=== PATIENT | male | born 1950 | race Caucasian/White ===

== ENCOUNTER → 2017-05-18 | Outpatient (CLI) | payer MEDICARE, MEDICAID ==
[~2017-05-18] MED LIST: AC325T PO; ASP81TEC PO; ASPI-586 PO; BENZ100C18 PO; CIPR-225 PO; CLCX200C; FNST5T PO; GFN600TCR PO; HYDR-753 PO; HYDR25TA4 PO; LISI40TA PO; MELO15TA39 PO; MELO7.5T PO; OXYC-197 PO; PHEN37.53 PO; TADALAFIL 20 MG PO; TRAM50TA2; TRIA1CAP PO; TRIA1CAP4; TRIA1TAB42 PO
--- NOTE | 2017-05-18 13:54 | Diagnostic Imaging Report ---
PA and lateral views of the chest. INDICATION: Dyspnea. FINDINGS: The lungs are clear. The heart size is normal. No effusion or pneumothorax. The mediastinum and augie appear unremarkable. IMPRESSION: Unremarkable exam. Dictated by: Dictated on workstation # [id number]
== END ==
LOC: RAD 11:09
PROVIDERS: ATTEND Internal Medicine
DX: R06.00 Dyspnea, unspecified (principal)
CPT/HCPCS: 71020

== ENCOUNTER → 2017-05-20 | Outpatient (CLI) | payer MEDICARE, MEDICAID ==
[~2017-05-20] MED LIST changes: +CATHETER FLUSH 10 ML SYR IV PRN; +IOHEXOL 350 MG/ML 150 ML (OMNIPAQUE 350) VIAL IV ONE; +NS 100 ML (IVPB) BAG IV ONE
--- NOTE | 2017-05-20 11:23 | Diagnostic Imaging Report ---
PROCEDURE: CT angiography of the chest with contrast. TECHNIQUE: Multiple contiguous axial images were obtained through the chest after uneventful bolus administration of intravenous contrast. Reconstructed CTA MIP acquisitions were also performed. INDICATION: Dyspnea. Positive d-dimer. 125 mL of Omnipaque 350 is administered intravenously. FINDINGS: The pulmonary arteries are well opacified with no filling defects to suggest pulmonary embolism. The thoracic aorta is normal in caliber. No dissection. The heart size is normal. No pericardial or pleural effusion is seen. The lungs demonstrate no significant consolidation, mass or suspicious nodule. No lymphadenopathy in the mediastinum, augie or axilla is seen. Coronary artery calcifications are noted. Sections in the upper abdomen appear grossly unremarkable. Osseous structures demonstrate degenerative changes. IMPRESSION: No PE or aortic dissection. No acute process. Dictated by: Dictated on workstation # [id number]
== END ==
LOC: RAD 10:34
PROVIDERS: ATTEND Internal Medicine
DX: R79.1 Abnormal coagulation profile (principal); R06.00 Dyspnea, unspecified
CPT/HCPCS: 71275

== ENCOUNTER → 2017-05-22 | Outpatient (CLI) | payer MEDICARE, MEDICAID ==
[~2017-05-22] MED LIST changes: -CATHETER FLUSH 10 ML SYR IV PRN; -IOHEXOL 350 MG/ML 150 ML (OMNIPAQUE 350) VIAL IV ONE; -NS 100 ML (IVPB) BAG IV ONE
--- NOTE | 2017-05-22 12:27 | Diagnostic Imaging Report ---
PROCEDURE: US Gallbladder. TECHNIQUE: Multiple real-time grayscale images were obtained over the right upper quadrant in various projections. INDICATION: Abdominal pain. FINDINGS: Hepatic density is elevated suggestive of at least mild steatosis. The gallbladder appears normal and there is no dilatation of intra or extrahepatic bile ducts. No ascites or perihepatic fluid collection. The unobstructed right kidney is normal in size, cortical thickness, and echotexture. Pancreas is obscured by gas. IMPRESSION: Echodense fatty liver, otherwise normal right upper quadrant ultrasound. We note obscuration of the pancreas and negative right kidney. Dictated by: Dictated on workstation # [id number]
== END ==
LOC: RAD 07:29
PROVIDERS: ATTEND Internal Medicine
DX: K76.0 Fatty (change of) liver, not elsewhere classified (principal); R10.9 Unspecified abdominal pain
CPT/HCPCS: 76705

== ENCOUNTER → 2017-08-12 | Outpatient (CLI) | payer MEDICARE, MEDICAID ==
[~2017-08-12] MED LIST changes: +RT-ALBUTEROL SULF 2.5 MG/3 ML PRE-MIX VIAL INH ONE
== END ==
LOC: RT 12:36
PROVIDERS: ATTEND Internal Medicine
DX: R06.00 Dyspnea, unspecified (principal)
CPT/HCPCS: 94060; 94726; 94729

== ENCOUNTER → 2017-12-28 | Outpatient (CLI) | payer MEDICARE, MEDICAID ==
[~2017-12-28] MED LIST changes: -RT-ALBUTEROL SULF 2.5 MG/3 ML PRE-MIX VIAL INH ONE
--- NOTE | 2017-12-28 13:44 | Diagnostic Imaging Report ---
INDICATION: Arthritis of the left knee. TIME OF EXAM: 11:15 a.m. Multiple views of left knee were obtained. There is significant medial and patellofemoral compartmental degenerative change with joint space narrowing and marginal spurring. Lateral compartment is intact. There does appear to be chondrocalcinosis. No significant effusion is seen. No fractures identified. Extensive soft tissue calcifications in the left lower extremity are noted, perhaps on the basis of dermatomyositis. IMPRESSION: 1. Bicompartmental left knee osteoarthritis without acute bony abnormality. 2. Extensive soft tissue calcifications at the level of the tibia and fibula, perhaps on basis of scleroderma or dermatomyositis. Clinical correlation is recommended. Dictated by: Dictated on workstation # [id number]
== END ==
LOC: RAD 10:39
PROVIDERS: ATTEND Internal Medicine
DX: M17.12 Unilateral primary osteoarthritis, left knee (principal); M79.89 Other specified soft tissue disorders
CPT/HCPCS: 73562

== ENCOUNTER → 2018-07-13 | Outpatient (CLI) | payer MEDICAID, MEDICARE ==
[~2018-07-13] MED LIST changes: +HYDR-4196 PO; -HYDR-753 PO; -OXYC-197 PO; +OXYC1TAB87 PO
== END ==
LOC: RAD 08:34
PROVIDERS: ATTEND Internal Medicine
DX: S46.001A Unspecified injury of muscle(s) and tendon(s) of the rotator cuff of right shoulder, initial encounter (principal); Z53.8 Procedure and treatment not carried out for other reasons

== ENCOUNTER 2018-09-18 07:53 | Emergency (ER) | payer MEDICARE ==
[~2018-09-18] VITALS: Ht 170.2 cm; Wt 147.4 kg
--- OUTSIDE RECORDS SUMMARY | 2018-09-18 07:58 | XMS REPORT | Clinical Summary ---
Author Author [facility] Organization [facility] Address Unknown Phone Unavailable Care Team Providers Care Quality Assurance Supervisor Final Name Role Phone Sebas Cartwright MD Unavailable Self, Referral PCP Unavailable Source Comments Some departments are not documenting in the electronic medical record. If you do not see the information that you expected, contact Release of Information in the Health Information Management department at [phone] for further assistance in locating additional records.[facility] Allergies Comments Active Allergy Reactions Severity Noted Date Ampicillin RASH Medium 05/13/2012 Medications End Date Status Medication Sig Dispensed Refills Start Date Active oxyCODONE-acetaminophen Take 1-2 Tabs 40 Tab 0 (PERCOCET; ENDOCET; by mouth 2 ROXICET) 5-325 mg tablet every 6 hours as needed for Pain Max 12 tabs/day Active phenazopyridine Take 1 Tab by 10 Tab 0 (PYRIDIUM) 100 mg tablet mouth three 2 times daily. Active hyoscyamine (LEVSIN) Take 1 Tab by 30 Tab 0 0.125 mg tablet mouth every 4 2 hours as needed for Cramps. Active senna/docusate (SENNA-S) Take 1 Tab by 60 Tab 0 8.6/50 mg tablet mouth daily. 2 Active Problems Not on file Social History Date Tobacco Use Types Packs/Day Years Used Never Assessed Sex Assigned at Date Recorded Not on file Industry Job Start Date Occupation Not on file Not on file Not on file Travel End Travel History Travel Start No recent travel history available. Last Filed Vital Signs Time Taken Vital Sign Reading 05/13/2012 10:00 AM CDT Blood Pressure 125/84 05/13/2012 10:00 AM CDT Pulse 82 05/13/2012 10:00 AM CDT Temperature 36.6 C (97.8 F) - Respiratory Rate - 05/13/2012 10:00 AM CDT Oxygen Saturation 100% - Inhaled Oxygen - Concentration 05/12/2012 10:55 PM CDT Weight 160.1 kg (353 lb) 05/13/2012 6:37 AM CDT Height 175.3 cm (5' 9") 05/12/2012 10:55 PM CDT Body Mass Index 52.13 Plan of Treatment Health Maintenance Due Date Last Done Comments HEPATITIS C SCREENING 1952 PHYSICAL (COMPREHENSIVE) 11/11/1959 EXAM HIV SCREENING 11/11/1967 DTAP/TDAP VACCINES (1 - 1970 Tdap) COLORECTAL CANCER 2002 SCREENING SHINGLES RECOMBINANT 2002 VACCINE (1 of 2) PNEUMONIA (PCV13/PPSV23) 2017 VACCINES (1 of 2 - PCV13) INFLUENZA VACCINE 03/10/2018 Results Not on filefrom Last 3 Months Advance Directives For more information, please contact: [facility] [address] [place] [address] Date Inactivated Comments Code Status Date Activated 05/13/2012 3:23 PM Full Code 05/12/2012 11:34 PM Provider has discussed Code Status No, more discussion w/Patient or Family? needed
--- OUTSIDE RECORDS SUMMARY | 2018-09-18 07:59 | XMS REPORT | Continuity of Care Document ---
Author Author [facility] Organization [facility] Address Unknown Phone Unavailable Allergies Active Description Code Type Severity Reaction Onset Reported/Identified Relationship to Patient Clinical Status Yes ampicillin [id number] Drug Allergy Moderate HIVES 05/05/2012 Medications There is no data. Problems Date Dx Coded Attending Type Code Diagnosis Diagnosed By 06/11/2015 HELIO BARTLETT MD, Ot K11.7 DISTURBANCES OF SALIVARY SECRETION 06/11/2015 HELIO BARTLETT MD, Ot N39.0 URINARY TRACT INFECTION, SITE NOT SPECIF 06/11/2015 HELIO BARTLETT MD Ot R53.1 WEAKNESS 06/13/2015 HELIO BARTLETT MD, Ot E66.9 OBESITY, UNSPECIFIED 06/13/2015 HELIO BATRLETT MD Ot R20.0 ANESTHESIA OF SKIN 06/13/2015 HELIO BARTLETT MD Ot R20.2 PARESTHESIA OF SKIN 06/13/2015 HELIO BARTLETT MD Ot Z53.29 09/19/2015 ALEX PEREZ MD Ot M65.861 OTHER SYNOVITIS AND TENOSYNOVITIS, RIGHT 09/19/2015 ALEX PEREZ MD, Ot M94.261 CHONDROMALACIA, RIGHT KNEE 09/19/2015 ALEX PEREZ MD, Ot Z79.899 OTHER [facility] (CURRENT) DRUG THERAPY 09/19/2015 ALEX PEREZ MD, Ot Z87.891 PERSONAL HISTORY OF NICOTINE DEPENDENCE 05/25/2017 CELE TONEY DO, Ot K76.0 FATTY (CHANGE OF) LIVER, NOT ELSEWHERE C 05/25/2017 CELE TONEY DO, Ot R10.9 UNSPECIFIED ABDOMINAL PAIN 05/26/2017 CELE TONEY DO, Ot R06.00 DYSPNEA, UNSPECIFIED 05/26/2017 CELE TONEY DO, Ot R79.1 ABNORMAL COAGULATION PROFILE 06/09/2017 CELE TONEY DO J Ot R06.00 DYSPNEA, UNSPECIFIED 06/11/2017 TONEY DO, CELE Quintero Ot R06.00 DYSPNEA, UNSPECIFIED 06/11/2017 CELE TONEY DO Ot R79.1 ABNORMAL COAGULATION PROFILE 06/12/2017 CELE TONEY DO Ot K76.0 FATTY (CHANGE OF) LIVER, NOT ELSEWHERE C 06/12/2017 CELE TONEY DO Ot R10.9 UNSPECIFIED ABDOMINAL PAIN 06/23/2017 TONEY DO, CELE Quintero Ot R06.00 DYSPNEA, UNSPECIFIED 06/23/2017 TONEY DO, CELE Quintero Ot R06.00 DYSPNEA, UNSPECIFIED 06/23/2017 TONEY DO, CELE Quintero Ot R79.1 ABNORMAL COAGULATION PROFILE 06/26/2017 CELE TONEY DO Ot K76.0 FATTY (CHANGE OF) LIVER, NOT ELSEWHERE C 06/26/2017 TONEY DOCELE Ot R10.9 UNSPECIFIED ABDOMINAL PAIN 08/13/2017 TONEY DO CELE Ingrid Ot R06.00 DYSPNEA, UNSPECIFIED 09/08/2017 TONEY DO, CELE Quintero Ot R06.00 DYSPNEA, UNSPECIFIED 09/25/2017 TONEY DO, CELE Quintero Ot R06.00 DYSPNEA, UNSPECIFIED 12/29/2017 CELE TONEY DO Ot M17.12 UNILATERAL PRIMARY OSTEOARTHRITIS, LEFT 12/29/2017 CELE TONEY DO Ot M79.89 OTHER SPECIFIED SOFT TISSUE DISORDERS 01/20/2018 CELE TONEY DO Ot M17.12 UNILATERAL PRIMARY OSTEOARTHRITIS, LEFT 01/20/2018 CELE TONEY DO Ot M79.89 OTHER SPECIFIED SOFT TISSUE DISORDERS 02/08/2018 CELE TONEY DO Ot M17.12 UNILATERAL PRIMARY OSTEOARTHRITIS, LEFT 02/08/2018 CELE TONEY DO Ot M79.89 OTHER SPECIFIED SOFT TISSUE DISORDERS 07/13/2018 JENNA TONEY PROFESSIONAL SERVICES SPECIALIST Ot 786.50 CHEST PAIN NOS 07/13/2018 JENNA TONEY PROFESSIONAL SERVICES SPECIALIST Ot 959.11 OTH INJURY OF CHEST WALL 07/13/2018 JENNA TONEY PROFESSIONAL SERVICES SPECIALIST Ot E000.8 OTHER EXTERNAL CAUSE STATUS 07/13/2018 JENNA TONEY PROFESSIONAL SERVICES SPECIALIST Ot E849.0 ACCIDENT IN HOME 07/13/2018 TONEYJENNA STAUFFER PROFESSIONAL SERVICES SPECIALIST Ot E888.9 FALL NOS 07/13/2018 CHRIS TUBBS, ALEX Arango Ot M94.261 CHONDROMALACIA, RIGHT KNEE 07/13/2018 CHRIS TUBBS, ALEX Arango Ot Z01.818 ENCOUNTER FOR OTHER PREPROCEDURAL EXAMIN 07/13/2018 CHRIS TUBBS, ALEX Arango Ot Z11.2 ENCOUNTER FOR SCREENING FOR OTHER BACTER 07/13/2018 CELE TONEY DO Ot R06.00 DYSPNEA, UNSPECIFIED 07/13/2018 CELE TONEY DO Ot R06.00 DYSPNEA, UNSPECIFIED 07/13/2018 CELE TONEY DO Ot R79.1 ABNORMAL COAGULATION PROFILE 07/13/2018 CELE TONEY DO Ot K76.0 FATTY (CHANGE OF) LIVER, NOT ELSEWHERE C 07/13/2018 CELE TONEY DO Ot R10.9 UNSPECIFIED ABDOMINAL PAIN 07/13/2018 CELE TONEY DO Ot R06.00 DYSPNEA, UNSPECIFIED 07/13/2018 CELE TONEY DO Ot M17.12 UNILATERAL PRIMARY OSTEOARTHRITIS, LEFT 07/13/2018 CELE TONEY DO Ot M79.89 OTHER SPECIFIED SOFT TISSUE DISORDERS Procedures There is no data. Results There is no data. Encounters ACCT No. Visit Date/Time Discharge Status Pt. Type Provider Facility Loc./Unit Complaint [id number] 07/13/2018 08:34:00 07/13/2018 23:59:59 CLS Outpatient CELE TONEY DO [facility] RAD ROTATOR CUFF INJURY [id number] 12/28/2017 10:39:00 12/28/2017 23:59:59 CLS Outpatient CELE TONEY DO [facility] RAD M17.12 [id number] 08/12/2017 12:36:00 08/12/2017 23:59:59 CLS Outpatient CELE TONEY DO [facility] RT R06.00 [id number] 05/22/2017 07:29:00 05/22/2017 23:59:59 CLS Outpatient CELE TONEY DO [facility] RAD ABD PAIN [id number] 05/20/2017 10:34:00 05/20/2017 23:59:59 CLS Outpatient TONEY CELE BURLESON Ingrid [facility] RAD +D-DIMER,DYSPNEA [id number] 05/18/2017 11:09:00 05/18/2017 23:59:59 CLS Outpatient FENG CELE BURLESON Ingrid [facility] RAD DYSPNEA [id number] 09/19/2015 08:01:00 09/19/2015 12:40:00 DIS Outpatient ALEX PEREZ MD [facility] SDC RIGHT KNEE CHONDROMALASIA [id number] 09/13/2015 11:37:00 09/13/2015 23:59:59 CLS Outpatient ALEX PEREZ MD [facility] PREOP RIGHT KNEE CHONDROMALASIA [id number] 06/13/2015 08:51:00 06/13/2015 12:16:00 DIS Emergency HELIO BARTLETT MD [facility] ER FACIAL/LEFT ARM NUMBNESS [id number] 06/11/2015 18:00:00 06/11/2015 22:25:00 DIS Emergency HELIO BARTLETT MD [facility] ER WEAKNESS,DRY MOUTH, SHAKING,CHILLING [id number] 07/11/2013 13:09:00 07/11/2013 23:59:59 CLS Outpatient JENNA TONEY [facility] RAD FELL, HIT L RIBS [id number] 01/04/2013 10:15:00 01/04/2013 23:59:59 CLS Outpatient [id number] 09/18/2018 07:54:00 ACT Emergency JAI TUBBS, PREM Quach [facility] ER L SIDE ABD PAIN, N/V
[2018-09-18] MEDS ORDERED: NS IV 1000 ML 1,000 ML IV SCH (08:15)
[2018-09-18] MEDS ORDERED: fentaNYL INJECTION 100 MCG/2 ML AMP IVP ONE ×2 (08:15→10:00)
[2018-09-18] MEDS ORDERED: ONDANSETRON 4 MG/2 ML (SDV) Z0FRAN IVP ONE (08:15)
--- NOTE | 2018-09-18 08:19 | ED Abdominal Pain ---
General Stated Complaint: L SIDE ABD PAIN, N/V Source of Information: Patient, Family Exam Limitations: No Limitations History of Present Illness Date Seen by Provider: Sep 18, 2018 Time Seen by Provider: 08:16 Initial Comments A 67-year-old white male presents with a complaint of lower abdominal pain that has been present since yesterday. The pain originally was primarily right- sided and now it is left-sided. Patient has had associated nausea and vomiting. He denies any hematemesis or black or tarry stools. Past medical history includes kidney stones. Patient denies associated flank pain, dysuria, or frequency. Patient is under the care of Dr. Gonzalez. Patient's pain is moderate in severity and sharp in nature and nonradiating. Allergies and Home Medications Allergies Coded Allergies: ampicillin (Unverified Allergy, Intermediate, HIVES, 05/05/12) Home Medications Aspirin 81 Mg Tablet.dr, 81 MG PO DAILY, (Reported) Finasteride 5 Mg Tab, 5 MG PO DAILY, (Reported) Lisinopril 40 Mg Tablet, 40 MG PO DAILY, (Reported) Meloxicam 15 Mg Tablet, 15 MG PO DAILY, (Reported) Oxycodone HCl/Acetaminophen 1 Each Tablet, 1 EACH PO PRN Prescribed by: SOLEDAD KRUGER on 09/19/15 1139 Phentermine HCl 37.5 Mg Tablet, 37.5 MG PO DAILY, (Reported) Patient Home Medication List Home Medication List Reviewed: Yes Review of Systems Review of Systems Constitutional: No chills, No fever EENTM: No Blurred Vision Respiratory: Denies Cough Cardiovascular: Denies Chest Pain Gastrointestinal: Abdominal Pain; Denies Constipated, Denies Diarrhea; Nausea, Vomiting Genitourinary: Denies Burning, Denies Frequency (last bowel movement was yesterday) Musculoskeletal: No back pain Skin: No rash Psychiatric/Neurological: No Symptoms Reported Endocrine: No Symptoms Reported Hematologic/Lymphatic: No Symptoms Reported Past Miqqjud-Oxtyca-Abgzeq Hx Past Med/Social Hx: Reviewed Nursing Past Med/Soc Hx Patient Social History Recent Foreign Travel: No Contact w/Someone Who Travel: No Immunizations Up To Date Date of Pneumonia Vaccine: May 19, 2015 Date of Influenza Vaccine: May 12, 2015 Past Medical History Renal Sleep Apnea Chronic Edema/Swelling, Hypertension Reproductive Disorders: No Benign Prostatic Hyperpl, Kidney Stones Arthritis Physical Exam Vital Signs Vital Signs - First Documented 09/18/18 08:08 Temp 96.7 Pulse 92 Resp 18 B/P (MAP) 145/82 (103) Pulse Ox 99 Capillary Refill : Height/Weight/BMI Height: 5'4.00" Weight: 300lbs. 6.0oz. 136.600308yk; 49.92 BMI Method:Estimated General Appearance: WD/WN, mild distress HEENT: normal ENT inspection Neck: normal inspection Respiratory: normal breath sounds, no respiratory distress Cardiovascular: normal peripheral pulses, regular rate, rhythm Gastrointestinal: normal bowel sounds, tenderness (in the lower abdomen bilaterally.) Extremities: normal range of motion, non-tender, normal inspection Back: normal inspection Neurologic/Psychiatric: no motor/sensory deficits, alert, normal mood/affect, oriented x 3 Skin: normal color, warm/dry Progress/Results/Core Measures Results/Orders Lab Results Laboratory Tests Test 09/18/18 08:15 09/18/18 08:40 Range/Units White Blood Count 10.5 4.3-11.0 10^3/uL Red Blood Count 4.06 L 4.35-5.85 10^6/uL Hemoglobin 12.5 L 13.3-17.7 G/DL Hematocrit 37 L 40-54 % Mean Corpuscular Volume 91 80-99 FL Mean Corpuscular Hemoglobin 31 25-34 PG Mean Corpuscular Hemoglobin Concent 34 32-36 G/DL Red Cell Distribution Width 14.2 10.0-14.5 % Platelet Count 254 130-400 10^3/uL Mean Platelet Volume 10.7 H 7.4-10.4 FL Neutrophils (%) (Auto) 86 H 42-75 % Lymphocytes (%) (Auto) 7 L 12-44 % Monocytes (%) (Auto) 6 0-12 % Eosinophils (%) (Auto) 1 0-10 % Basophils (%) (Auto) 0 0-10 % Neutrophils # (Auto) 9.1 H 1.8-7.8 X 10^3 Lymphocytes # (Auto) 0.7 L 1.0-4.0 X 10^3 Monocytes # (Auto) 0.6 0.0-1.0 X 10^3 Eosinophils # (Auto) 0.1 0.0-0.3 10^3/uL Basophils # (Auto) 0.0 0.0-0.1 10^3/uL Neutrophils % (Manual) 83 % Lymphocytes % (Manual) 8 % Monocytes % (Manual) 9 % Blood Morphology Comment NORMAL Sodium Level 139 135-145 MMOL/L Potassium Level 4.1 3.6-5.0 MMOL/L Chloride Level 105 98-107 MMOL/L Carbon Dioxide Level 22 21-32 MMOL/L Anion Gap 12 5-14 MMOL/L Blood Urea Nitrogen 25 H 7-18 MG/DL Creatinine 1.79 H 0.60-1.30 MG/DL Estimat Glomerular Filtration Rate 38 BUN/Creatinine Ratio 14 Glucose Level 123 H 70-105 MG/DL Calcium Level 9.8 8.5-10.1 MG/DL Corrected Calcium 9.8 8.5-10.1 MG/DL Total Bilirubin 0.5 0.1-1.0 MG/DL Aspartate Amino Transf (AST/SGOT) 22 5-34 U/L Alanine Aminotransferase (ALT/SGPT) 15 0-55 U/L Alkaline Phosphatase 102 40-136 U/L Total Protein 7.4 6.4-8.2 GM/DL Albumin 4.0 3.2-4.5 GM/DL Lipase 16 8-78 U/L Urine Color YELLOW Urine Clarity CLEAR Urine pH 6 5-9 Urine Specific Melba 1.020 1.016-1.022 Urine Protein 2+ H NEGATIVE Urine Glucose (UA) NEGATIVE NEGATIVE Urine Ketones NEGATIVE NEGATIVE Urine Nitrite NEGATIVE NEGATIVE Urine Bilirubin NEGATIVE NEGATIVE Urine Urobilinogen NORMAL NORMAL MG/DL Urine Leukocyte Esterase NEGATIVE NEGATIVE Urine RBC (Auto) 1+ H NEGATIVE Urine RBC 5-10 H /HPF Urine WBC NONE /HPF Urine Squamous Epithelial Cells 2-5 /HPF Urine Crystals NONE /LPF Urine Bacteria NEGATIVE /HPF Urine Casts NONE /LPF Urine Mucus NEGATIVE /LPF Urine Culture Indicated NO My Orders Orders - PREM VERGARA MD Cbc With Automated Diff (09/18/18 08:12) Comprehensive Metabolic Panel (09/18/18 08:12) Lipase (09/18/18 08:12) Ua Culture If Indicated (09/18/18 08:12) Ct Abdomen/Pelvis Wo (09/18/18 08:12) Fentanyl Injection (Sublimaze Injection (09/18/18 08:15) Ondansetron Injection (Zofran Injectio (09/18/18 08:15) Ns Iv 1000 Ml (Sodium Chloride 0.9%) (2/9/19 08:15) Manual Differential (09/18/18 08:15) Fentanyl Injection (Sublimaze Injection (09/18/18 10:00) Ketorolac Injection (Toradol Injection) (09/18/18 10:15) Medications Given in ED Current Medications Medications Dose Ordered Sig/Bar Route Start Time Stop Time Status Last Admin Dose Admin Fentanyl Citrate 50 mcg ONCE ONCE IVP 09/18/18 08:15 09/18/18 08:16 DC 09/18/18 08:24 50 MCG Fentanyl Citrate 50 mcg ONCE ONCE IVP 09/18/18 10:00 09/18/18 10:01 DC 09/18/18 10:03 50 MCG Ondansetron HCl 4 mg ONCE ONCE IVP 09/18/18 08:15 09/18/18 08:16 DC 09/18/18 08:24 4 MG Vital Signs/I&O 09/18/18 08:08 Temp 96.7 Pulse 92 Resp 18 B/P (MAP) 145/82 (103) Pulse Ox 99 Progress Progress Note : Time: 10:18 Progress Note There was a 6 mm mildly obstructing stone noted on the left at the UPJ. Diverticulosis was also present on the patient's CT. The patient requested transfer to his urologist at [facility] in [place]. Dr. Gonzalez was kind enough to accept the patient in transfer to [facility]. Patient received fentanyl and Toradol IV for his pain. Departure Impression Primary Impression: Kidney stone on left side Disposition: XFER SHT-TRM HOSP Condition: Improved Transfer Time Spoke to Accepting Phy: 10:[address] Gonzalez at [facility] Transfer Time: 10:20 Transfer Facility: [facility] Method of Transfer: Private Vehicle Departure-Patient Inst. Referrals: CELE GONZALEZ DO (PCP/Family) Primary Care Physician PREM VERGARA MD Sep 18, 2018 08:19
[2018-09-18 08:33] LABS: BASOPHILS % (AUTO) 0 % (0-10); EOSINOPHILS # (AUTO) 0.1 10^3/uL (0.0-0.3); EOSINOPHILS % (AUTO) 1 % (0-10); HEMATOCRIT 37 % (40-54); HEMOGLOBIN 12.5 G/DL (13.3-17.7); LYMPHOCYTES # (AUTO) 0.7 X 10^3 (1.0-4.0); LYMPHOCYTES % (AUTO) 7 % (12-44); MEAN CORPUSCULAR HEMOGLOBIN 31 PG (25-34); MEAN CORPUSCULAR HGB CONC 34 G/DL (32-36); MEAN CORPUSCULAR VOLUME 91 FL (80-99); MEAN PLATELET VOLUME 10.7 FL (7.4-10.4); MONOCYTES # (AUTO) 0.6 X 10^3 (0.0-1.0); MONOCYTES % (AUTO) 6 % (0-12); NEUTROPHILS # (AUTO) 9.1 X 10^3 (1.8-7.8); NEUTROPHILS % (AUTO) 86 % (42-75); PLATELET COUNT 254 10^3/uL (130-400); RED CELL DISTRIBUTION WIDTH 14.2 % (10.0-14.5); WHITE BLOOD COUNT 10.5 10^3/uL (4.3-11.0)
[2018-09-18 08:52] LABS: BILIRUBIN,URINE NEGATIVE (NEGATIVE); CLARITY,URINE CLEAR; COLOR,URINE YELLOW; GLUCOSE, URINE (UA) NEGATIVE (NEGATIVE); KETONES,URINE NEGATIVE (NEGATIVE); LEUKOCYTE ESTERASE ,URINE NEGATIVE (NEGATIVE); NITRITE,URINE NEGATIVE (NEGATIVE); PH,URINE 6 (5-9); PROTEIN,URINE 2+ (NEGATIVE); UROBILINOGEN,URINE NORMAL (NORMAL)
[2018-09-18 08:53] LABS: BILIRUBIN,TOTAL 0.5 MG/DL (0.1-1.0); CALCIUM 9.8 MG/DL (8.5-10.1); CREATININE SERUM 1.79 MG/DL (0.60-1.30); POTASSIUM 4.1 MMOL/L (3.6-5.0); TOTAL PROTEIN 7.4 GM/DL (6.4-8.2)
[2018-09-18 09:06] LABS: BACTERIA,URINE NEGATIVE /HPF
[2018-09-18 09:17] LABS: LYMPHOCYTES % (MANUAL) 8 %; MONOCYTES % (MANUAL) 9 %; NEUTROPHILS % (MANUAL) 83 %; RBC MORPH NORMAL
--- NOTE | 2018-09-18 09:26 | Diagnostic Imaging Report ---
PROCEDURE: CT abdomen and pelvis without contrast. TECHNIQUE: Multiple contiguous axial images were obtained through the abdomen and pelvis without the use of intravenous contrast. INDICATION: Left side abdominal pain with nausea and vomiting. Comparison is made with prior CT abdomen and pelvis from 05/07/2012. The lung bases are clear. No discrete liver mass is detected. The gallbladder is unremarkable. No biliary duct dilatation is identified. The pancreas and spleen are unremarkable. No adrenal mass is detected. Right kidney is unremarkable. There is a nonobstructing calculus within the lower pole of the left kidney measuring 6 mm in size. In addition, there is a calculus located at the UPJ on the left measuring 6 mm in size. This is producing mild hydronephrosis. Remainder of the left ureter is unremarkable. The right ureter is unremarkable. No bladder calculi are detected. Small and large bowel loops are normal caliber. There is diverticulosis of the sigmoid colon but no evidence of acute diverticulitis. IMPRESSION: 1. 6 mm elevated nonobstructing left renal calculus. There is also a 6 mm calculus at the UPJ on the left side producing mild hydronephrosis. 2. Uncomplicated sigmoid diverticulosis. Dictated by: Dictated on workstation # [id number]
[2018-09-18] MEDS ORDERED: KETOROLAC 30 MG/ML VIAL IVP ONE (10:15)
[2018-09-18 11:06] VITALS: BP 145/82
== END 2018-09-18 11:09 | disposition short-term general hospital (02) ==
LOC: EDUNIT# 07:53 → ER 07:54
DX: N13.2 Hydronephrosis with renal and ureteral calculous obstruction (principal); G47.30 Sleep apnea, unspecified; I10 Essential (primary) hypertension; Z87.448 Personal history of other diseases of urinary system; Z88.1 Allergy status to other antibiotic agents; Z79.82 Long term (current) use of aspirin
CPT/HCPCS: 36415; 74176; 80053; 81000; 83690; 85007; 85027

== ENCOUNTER 2019-04-23 12:33 | Emergency (ER) | payer MEDICARE ==
[~2019-04-23] VITALS: Ht 170.1 cm; Wt 157.0 kg
--- NOTE | 2019-04-23 12:56 | ED General ---
General Stated Complaint: NECK / R KNEE PAIN Source of Information: Patient History of Present Illness Date Seen by Provider: Apr 23, 2019 Time Seen by Provider: 12:32 Initial Comments PT ARRIVES VIA POV FROM HOME, NEEDS WHEELCHAIR ON ARRIVAL PT LIVES ALONE PT HAS CHRONIC BILATERAL KNEE PAIN AND HAS HAD RIGHT KNEE SCOPE SEVERAL YEARS AGO BY DR. PEREZ. STATES HE HIS NOT A CANDIDATE FOR KNEE REPLACEMENT DUE TO HIS MORBID OBESITY HAS HAD INCREASED PAIN IN RIGHT KNEE FOR THE LAST SEVERAL DAYS STATES HE NORMALLY IS ABLE TO WALK ON HIS OWN, USES A CANE. PT HAS ALSO HAD PAIN IN NECK AND UPPER BACK FOR THE LAST FEW DAYS--STATES IT HAS BEEN "TIGHT" AND POINTS TO BILATERAL TRAPEZIUS AREAS THE AREAS OF PAIN--STATES IT IS NOT HURTING NOW DENIES ANY INJURY OR CHANGE IN ACTIVITY OR CHANGE IN SLEEPING POSITION, ETC. NO PARESTHESIAS OR MOTOR DEFICITS NO FEVER OR RECENT ILLNESS HAS NOT SOUGHT CARE UNTIL TODAY TOOK NAPROXEN AND 1 HYDROCODONE AT 0800 THIS AM--STATES HE ONLY TAKES 1 HYDROCODONE A DAY PT ALSO STATES HE TAKES MOBIC DAILY PCP: DR. TONEY ORTHOPEDIC SURGEON: DR. PEREZ Allergies and Home Medications Allergies Coded Allergies: ampicillin (Unverified Allergy, Intermediate, HIVES, 05/05/12) Home Medications Albuterol Sulfate 1 Puff Puff, 2 PUFF IH Q6H, (Reported) 1 PUFF = 90 MCG Aspirin 81 Mg Tablet.dr, 81 MG PO DAILY, (Reported) Finasteride 5 Mg Tab, 5 MG PO DAILY, (Reported) Fluticasone Propionate 9.9 Ml [place].susp, 2 SPRAY NS DAILY, (Reported) 2 SPRAYS PER NOSTRIL DAILY X 2 DAYS THEN 1 SPRAY DAILY Hydrocodone/Acetaminophen 1 Each Tablet, 1 TAB PO BID, (Reported) Ketorolac Tromethamine 5 Ml Drops, 5 ML OP QID, (Reported) Meloxicam 15 Mg Tablet, 15 MG PO DAILY, (Reported) Montelukast Sodium 10 Mg Tablet, 10 MG PO DAILY, (Reported) Phentermine HCl 37.5 Mg Tablet, 37.5 MG PO DAILY, (Reported) Triamterene/Hydrochlorothiazid 1 Each Capsule, 1 EACH PO DAILY, (Reported) Patient Home Medication List Home Medication List Reviewed: Yes Review of Systems Review of Systems Constitutional: no symptoms reported Respiratory: no symptoms reported Cardiovascular: no symptoms reported Gastrointestinal: no symptoms reported Genitourinary: no symptoms reported Musculoskeletal: see HPI, back pain, joint pain, neck pain Skin: no symptoms reported Psychiatric/Neurological: No Symptoms Reported Hematologic/Lymphatic: No Symptoms Reported Immunological/Allergic: no symptoms reported Past Xmdznle-Hwtwvn-Atemff Hx Patient Social History Alcohol Use: Occasionally Uses Recreational Drug Use: No Smoking Status: Former Smoker (QUIT 25 YEARS AGO) Recent Foreign Travel: No Contact w/Someone Who Travel: No Recent Hopitalizations: No Immunizations Up To Date Date of Pneumonia Vaccine: May 19, 2015 Date of Influenza Vaccine: May 12, 2015 Past Medical History Surgeries: Yes (RENAL STONE REMOVAL X 3; RIGHT KNEE ARTHROSCOPY) Orthopedic, Renal Respiratory: Yes (cpap) Sleep Apnea Currently Using CPAP: Yes Cardiac: Yes Chronic Edema/Swelling, Hypertension Neurological: No Reproductive Disorders: No Genitourinary: Yes Benign Prostatic Hyperpl, Kidney Stones Gastrointestinal: No Musculoskeletal: Yes (BILATERAL CARPEL TUNNEL; CHRONIC BILATERAL KNEE PAIN--"NO CARTILAGE" PER PT--S/P RIGHT KNEE SCOPE) Arthritis Endocrine: Yes (MORBID OBESITY) HEENT: No Cancer: No Psychosocial: No Integumentary: No Blood Disorders: No Physical Exam Vital Signs Vital Signs - First Documented 04/23/19 12:33 Temp 36.8 Pulse 108 Resp 20 B/P (MAP) 152/106 (121) Pulse Ox 95 O2 Delivery Room Air Capillary Refill : Height, Weight, BMI Height: 5'7.00" Weight: 325lbs. 6.0oz. 147.859988wp; 49.92 BMI Method:Stated General Appearance: No Apparent Distress, Obese (MORBIDLY OBESE--APPEARS TO BE IN EXCESS OF 500 #), Other (PT IS WEARING A BRACE ON RIGHT KNEE) Neck: Full Range of Motion, Normal Inspection, Non Tender, Supple Respiratory: Normal Breath Sounds, No Accessory Muscle Use, No Respiratory Distress Cardiovascular: Regular Rate, Rhythm Back: Other (NO TENDERNESS TO NECK OR UPPER BACK--STATES PAIN WAS IN BILATERAL TRAPEZIUS MUSCLE AREAS, AND IS NOT PRESENT NOW, AND IS NON TENDER. PT HAS FULL ROM ON NECK. UNABLE TO EXAMINE LOWER BACK DUE TO PT UNABLE TO MOVE/CHANGE POSITIONS DUE TO KNEE PAIN AND BODY HABITUS. ) Extremity: Other (RIGHT KNEE WITH DIFFUSE TENDERNESS ANTERIOR, MEDIAL AND LATERALLY. UNABLE TO DETERMINE IF SWELLING IS PRESENT DUE TO BODY HABITUS ( DIFFICULTY DETERMINING WHERE JOINT ITSELF IS DUE TO BODY HABITUS) SKIN IS NORMAL, WITH NO ERYTHEMA OR WOUNDS. 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 ADVISED PT THAT HE SHOULD USE THE WALKER AT ALL TIMES, HE IS AT RISK FOR FALLING DUE TO HIS KNEE PAIN Diagnostic Imaging Comments XRAYS RIGHT KNEE--SEVERE TRI-COMPARTMENT ARTHRITIC CHANGES, EXTENSIVE SOFT TISSUE CALCIFICATIONS, LIKELY DUE TO CHRONIC SWELLING--PER RADIOLOGIST REPORT AT 1315 Reviewed: Reviewed by Me Departure Impression Primary Impression: EXACERBATION OF CHRONIC RIGHT KNEE PAIN Disposition: 01 HOME, SELF-CARE Condition: Stable Departure-Patient Inst. Referrals: CELE TONEY DO (PCP/Family) Primary Care Physician ALEX PEREZ MD Patient Instructions: Chronic Knee Pain (DC) Add. Discharge Instructions: WEAR YOUR KNEE BRACE AT ALL TIMES USE YOUR WALKER AT ALL TIMES ICE TO AREA AT 20 MINUTE INTERVALS HOLD MOBIC WHILE TAKING STEROIDS INCREASE YOUR HYDROCODONE TO 2 PILLS EVERY 6 HOURS NEEDED FOR PAIN FOLLOW UP WITH DR. PEREZ NEXT WEEK FOR FURTHER CARE Scripts Methylprednisolone (Medrol) 4 Mg Tab.ds.pk 4 MG PO UD, #1 PKG Prov: RICKY ROSE DO 04/23/19 RICKY ROSE DO Apr 23, 2019 12:56
[2019-04-23] MEDS ORDERED: HYDR-4227 PO (13:03)
[2019-04-23] MEDS ORDERED: TRIA1CAP4 PO (13:04)
[2019-04-23] MEDS ORDERED: FLUT9.9S NS (13:04)
[2019-04-23] MEDS ORDERED: MONT10TA21 PO (13:06)
[2019-04-23] MEDS ORDERED: RT-ALBUINH IH (13:06)
[2019-04-23] MEDS ORDERED: KETO5DRO14 OP (13:06)
--- NOTE | 2019-04-23 13:12 | Diagnostic Imaging Report ---
EXAMINATION: Right knee 3 views HISTORY: Chronic right knee pain FINDINGS: Comparison is 01/11/2007. There is severe patellofemoral compartment predominant tricompartmental osteoarthritis of the right knee. There are multiple loose bodies in the right knee joint. Calcifications are present posterior to the right knee. Nonaggressive appearing calcifications are present in the soft tissues, likely related to chronic edema. IMPRESSION: 1. Severe patellofemoral compartment predominant tricompartmental osteoarthritis of the right knee. Dictated by: Dictated on workstation # [id number]
[2019-04-23] MEDS ORDERED: KETOROLAC 60 MG/2 ML VIAL IM ONE (13:30)
[2019-04-23] MEDS ORDERED: METH4TAB PO ×2 (13:32→13:33)
[2019-04-23 13:45] VITALS: BP 128/79
== END 2019-04-23 13:46 | disposition home or self-care (01) ==
LOC: EDUNIT# 12:33 → ER 12:34
DX: M25.561 Pain in right knee (principal); G89.29 Other chronic pain; E66.01 Morbid (severe) obesity due to excess calories; G47.30 Sleep apnea, unspecified; I10 Essential (primary) hypertension; N40.0 Benign prostatic hyperplasia without lower urinary tract symptoms; Z88.1 Allergy status to other antibiotic agents; Z79.82 Long term (current) use of aspirin; Z87.891 Personal history of nicotine dependence; Z68.43 Body mass index [BMI] 50.0-59.9, adult
CPT/HCPCS: 73562

== ENCOUNTER 2019-07-26 15:47 | Emergency (ER) | payer MEDICARE ==
[~2019-07-26] VITALS: Ht 170 cm; Wt 152.0 kg
[~2019-07-26 15:47] MED LIST changes: +FLUT9.9S NS; +HYDR-4227 PO; +KETO5DRO14 OP; +METH4TAB PO; +MONT10TA21 PO; +RT-ALBUINH IH; +TRIA1CAP4 PO
[2019-07-26] MEDS ORDERED: NS IV 1000 ML 1,000 ML IV SCH (16:15)
--- NOTE | 2019-07-26 16:16 | ED General ---
General Chief Complaint: Dizziness/Syncope Stated Complaint: DIZZY Source of Information: Patient Exam Limitations: No Limitations History of Present Illness Date Seen by Provider: Jul 26, 2019 Time Seen by Provider: 16:16 Initial Comments To ER per private vehicle from home with reports of dizziness and lightheadedness. [place]. States that he felt like his legs were going to give out on him. When he reports the dizziness he states there was no spinning sensation and when asked to define the dizziness he states "I felt like I was going down". No fevers or chills. He has had a cough. No headache. He has a mild burning sensation about his entire abdomen. Did have diarrheal illness last week. Timing/Duration: 1-2 Days Severity: Moderate Associated Systoms: Cough; No Headaches; Weakness Allergies and Home Medications Allergies Coded Allergies: ampicillin (Unverified Allergy, Intermediate, HIVES, 05/05/12) Home Medications Albuterol Sulfate 1 Puff Puff, 2 PUFF IH Q6H, (Reported) 1 PUFF = 90 MCG Aspirin 81 Mg Tablet.dr, 81 MG PO DAILY, (Reported) Finasteride 5 Mg Tab, 5 MG PO DAILY, (Reported) Fluticasone Propionate 9.9 Ml [place].susp, 2 SPRAY NS DAILY, (Reported) 2 SPRAYS PER NOSTRIL DAILY X 2 DAYS THEN 1 SPRAY DAILY Hydrocodone/Acetaminophen 1 Each Tablet, 1 TAB PO BID, (Reported) Ketorolac Tromethamine 5 Ml Drops, 5 ML OP QID, (Reported) Meloxicam 15 Mg Tablet, 15 MG PO DAILY, (Reported) Methylprednisolone 4 Mg Tab.ds.pk, 4 MG PO UD Prescribed by: RICKY ROSE on 04/23/19 1333 Montelukast Sodium 10 Mg Tablet, 10 MG PO DAILY, (Reported) Phentermine HCl 37.5 Mg Tablet, 37.5 MG PO DAILY, (Reported) Triamterene/Hydrochlorothiazid 1 Each Capsule, 1 EACH PO DAILY, (Reported) Patient Home Medication List Home Medication List Reviewed: Yes Review of Systems Review of Systems Constitutional: see HPI; No chills, No fever; malaise, weakness EENTM: see HPI Respiratory: no symptoms reported Cardiovascular: no symptoms reported Genitourinary: no symptoms reported Musculoskeletal: no symptoms reported Skin: no symptoms reported Psychiatric/Neurological: No Symptoms Reported Hematologic/Lymphatic: No Symptoms Reported Immunological/Allergic: no symptoms reported Past Xgotfxk-Cjnpzw-Zwogyx Hx Patient Social History 2nd Hand Smoke Exposure: No Recent Foreign Travel: No Contact w/Someone Who Travel: No Recent Hopitalizations: No Immunizations Up To Date Date of Pneumonia Vaccine: May 19, 2015 Date of Influenza Vaccine: May 12, 2015 Seasonal Allergies Seasonal Allergies: No Past Medical History Surgeries: Yes (RENAL STONE REMOVAL X 3; RIGHT KNEE ARTHROSCOPY) Orthopedic, Renal Respiratory: Yes (cpap) Sleep Apnea Currently Using CPAP: Yes Cardiac: Yes Chronic Edema/Swelling, Hypertension Neurological: No Reproductive Disorders: No Genitourinary: Yes Benign Prostatic Hyperpl, Kidney Stones Gastrointestinal: No Musculoskeletal: Yes Arthritis Endocrine: Yes (MORBID OBESITY) HEENT: No Cancer: No Psychosocial: No Integumentary: No Blood Disorders: No Physical Exam Vital Signs Vital Signs - First Documented 07/26/19 16:00 Temp 36.2 Pulse 110 Resp 22 B/P (MAP) 123/77 (92) Pulse Ox 97 O2 Delivery Nasal Cannula O2 Flow Rate 2.00 Capillary Refill : Height, Weight, BMI Height: 5'7.00" Weight: 325lbs. 6.0oz. 147.405692kh; 54.00 BMI Method:Stated General Appearance: No Apparent Distress, WD/WN, Chronically ill, Obese Eyes: Bilateral Eye Normal Inspection, Bilateral Eye PERRL, Bilateral Eye EOMI HEENT: PERRL/EOMI, TMs Normal Neck: Full Range of Motion, Normal Inspection Respiratory: No Accessory Muscle Use, No Respiratory Distress Cardiovascular: Regular Rate, Rhythm, Normal Peripheral Pulses Gastrointestinal: Non Tender, Soft Neurologic/Psychiatric: Alert, Oriented x3 Skin: Normal Color, Warm/Dry Progress/Results/Core Measures Suspected Sepsis SIRS Temperature: Pulse: Respiratory Rate: Laboratory Tests 07/26/19 16:10: White Blood Count 8.4 Blood Pressure / Mean: Laboratory Tests 07/26/19 16:10: Creatinine 2.11H, Platelet Count 228, Total Bilirubin 0.4 Results/Orders Lab Results Laboratory Tests Test 07/26/19 16:10 07/26/19 17:55 Range/Units White Blood Count 8.4 4.3-11.0 10^3/uL Red Blood Count 4.21 L 4.35-5.85 10^6/uL Hemoglobin 13.2 L 13.3-17.7 G/DL Hematocrit 40 40-54 % Mean Corpuscular Volume 94 80-99 FL Mean Corpuscular Hemoglobin 31 25-34 PG Mean Corpuscular Hemoglobin Concent 33 32-36 G/DL Red Cell Distribution Width 14.0 10.0-14.5 % Platelet Count 228 130-400 10^3/uL Mean Platelet Volume 10.3 7.4-10.4 FL Neutrophils (%) (Auto) 78 H 42-75 % Lymphocytes (%) (Auto) 13 12-44 % Monocytes (%) (Auto) 8 0-12 % Eosinophils (%) (Auto) 2 0-10 % Basophils (%) (Auto) 0 0-10 % Neutrophils # (Auto) 6.5 1.8-7.8 X 10^3 Lymphocytes # (Auto) 1.1 1.0-4.0 X 10^3 Monocytes # (Auto) 0.7 0.0-1.0 X 10^3 Eosinophils # (Auto) 0.1 0.0-0.3 10^3/uL Basophils # (Auto) 0.0 0.0-0.1 10^3/uL Sodium Level 140 135-145 MMOL/L Potassium Level 4.0 3.6-5.0 MMOL/L Chloride Level 101 98-107 MMOL/L Carbon Dioxide Level 24 21-32 MMOL/L Anion Gap 15 H 5-14 MMOL/L Blood Urea Nitrogen 25 H 7-18 MG/DL Creatinine 2.11 H 0.60-1.30 MG/DL Estimat Glomerular Filtration Rate 32 BUN/Creatinine Ratio 12 Glucose Level 111 H 70-105 MG/DL Calcium Level 10.2 H 8.5-10.1 MG/DL Corrected Calcium 10.0 8.5-10.1 MG/DL Total Bilirubin 0.4 0.1-1.0 MG/DL Aspartate Amino Transf (AST/SGOT) 20 5-34 U/L Alanine Aminotransferase (ALT/SGPT) 16 0-55 U/L Alkaline Phosphatase 131 40-136 U/L Total Protein 8.2 6.4-8.2 GM/DL Albumin 4.3 3.2-4.5 GM/DL Urine Color YELLOW Urine Clarity CLEAR Urine pH 7.5 5-9 Urine Specific [place] 1.015 L 1.016-1.022 Urine Protein NEGATIVE NEGATIVE Urine Glucose (UA) NEGATIVE NEGATIVE Urine Ketones NEGATIVE NEGATIVE Urine Nitrite NEGATIVE NEGATIVE Urine Bilirubin NEGATIVE NEGATIVE Urine Urobilinogen 0.2 < = 1.0 MG/DL Urine Leukocyte Esterase NEGATIVE NEGATIVE Urine RBC (Auto) NEGATIVE NEGATIVE Urine RBC NONE /HPF Urine WBC RARE /HPF Urine Squamous Epithelial Cells RARE /HPF Urine Crystals NONE /LPF Urine Bacteria TRACE /HPF Urine Casts NONE /LPF Urine Mucus NEGATIVE /LPF Urine Culture Indicated NO My Orders Orders - DISHA PINEDA APRN Cbc With Automated Diff (07/26/19 16:06) Comprehensive Metabolic Panel (07/26/19 16:06) Ua Culture If Indicated (07/26/19 16:06) Ct Head Wo (07/26/19 16:13) Chest 1 View, Ap/Pa Only (07/26/19 16:13) Ns Iv 1000 Ml (Sodium Chloride 0.9%) (07/26/19 16:15) Ns Iv 500 Ml (Sodium Chloride 0.9%) (07/26/19 18:00) Vital Signs/I&O 07/26/19 16:00 Temp 36.2 Pulse 110 Resp 22 B/P (MAP) 123/77 (92) Pulse Ox 97 O2 Delivery Nasal Cannula O2 Flow Rate 2.00 Capillary Refill : Departure Communication (Admissions) 1845-pt is feeling better at this time. Will dc to home. Impression Primary Impression: Lightheaded Additional Impression: TROY (acute kidney injury) Disposition: 01 HOME, SELF-CARE Condition: Stable Departure-Patient Inst. Decision time for Depature: 18:52 Referrals: CELE TONEY DO (PCP/Family) Primary Care Physician Patient Instructions: Acute Kidney Failure (DC) Add. Discharge Instructions: 1. Increase her fluid intake 2. Return to ER for any concerns or worsening symptoms 3. Follow-up with her doctor later next week. All discharge instructions reviewed with patient and/or family. Voiced understanding. DISHA PINEDA APRN Jul 26, 2019 16:16 POS
[2019-07-26 16:20] LABS: BASOPHILS % (AUTO) 0 % (0-10); EOSINOPHILS # (AUTO) 0.1 10^3/uL (0.0-0.3); EOSINOPHILS % (AUTO) 2 % (0-10); HEMATOCRIT 40 % (40-54); HEMOGLOBIN 13.2 G/DL (13.3-17.7); LYMPHOCYTES # (AUTO) 1.1 X 10^3 (1.0-4.0); LYMPHOCYTES % (AUTO) 13 % (12-44); MEAN CORPUSCULAR HEMOGLOBIN 31 PG (25-34); MEAN CORPUSCULAR HGB CONC 33 G/DL (32-36); MEAN CORPUSCULAR VOLUME 94 FL (80-99); MEAN PLATELET VOLUME 10.3 FL (7.4-10.4); MONOCYTES # (AUTO) 0.7 X 10^3 (0.0-1.0); MONOCYTES % (AUTO) 8 % (0-12); NEUTROPHILS # (AUTO) 6.5 X 10^3 (1.8-7.8); NEUTROPHILS % (AUTO) 78 % (42-75); PLATELET COUNT 228 10^3/uL (130-400); WHITE BLOOD COUNT 8.4 10^3/uL (4.3-11.0)
[2019-07-26 16:41] LABS: ALBUMIN 4.3 GM/DL (3.2-4.5); BILIRUBIN,TOTAL 0.4 MG/DL (0.1-1.0); CALCIUM 10.2 MG/DL (8.5-10.1); CREATININE SERUM 2.11 MG/DL (0.60-1.30); TOTAL PROTEIN 8.2 GM/DL (6.4-8.2)
--- NOTE | 2019-07-26 16:51 | Diagnostic Imaging Report ---
Indication: Shortness of air and cough. Time of exam 4:33 PM Comparison is made with prior chest from 05/18/2017. The heart size is normal. The pulmonary vascularity is unremarkable. The lungs are clear. No infiltrate, effusion or pneumothorax is detected. Impression: No acute cardiopulmonary process is detected. Dictated by: Dictated on workstation # [id number]
--- NOTE | 2019-07-26 16:54 | Diagnostic Imaging Report ---
PROCEDURE: CT head without contrast. TECHNIQUE: Multiple contiguous axial images were obtained through the brain without the use of intravenous contrast. Auto Exposure Controls were utilized during the CT exam to meet ALARA standards for radiation dose reduction. INDICATION: Dizziness COMPARISON: 06/13/2015 FINDINGS: Age-appropriate volume loss. No intracranial hemorrhage. No intracranial mass, mass effect, midline shift, herniation, hydrocephalus, or extra-axial fluid collection. No definite CT evidence of an acute ischemic infarction. The visualized orbits are unremarkable. The paranasal sinuses are clear. The calvarium and extracalvarial soft tissues are unremarkable. IMPRESSION: Stable appearing examination without acute intracranial abnormality. Dictated by: Dictated on workstation # [id number]
[2019-07-26] MEDS ORDERED: NS IV 500 ML 500 ML IV SCH (18:00)
[2019-07-26 18:05] LABS: BILIRUBIN,URINE NEGATIVE (NEGATIVE); CLARITY,URINE CLEAR; COLOR,URINE YELLOW; GLUCOSE, URINE (UA) NEGATIVE (NEGATIVE); KETONES,URINE NEGATIVE (NEGATIVE); NITRITE,URINE NEGATIVE (NEGATIVE); PH,URINE 7.5 (5-9); PROTEIN,URINE NEGATIVE (NEGATIVE)
[2019-07-26 18:15] LABS: BACTERIA,URINE TRACE /HPF; LEUKOCYTE ESTERASE ,URINE NEGATIVE (NEGATIVE); SQUAMOUS EPITHELIAL CELL,UR RARE /HPF; WBC,URINE RARE /HPF
[2019-07-26 19:39] VITALS: BP 135/72
== END 2019-07-26 19:39 | disposition home or self-care (01) ==
LOC: EDUNIT# 15:47 → ER 15:48
DX: N17.9 Acute kidney failure, unspecified (principal); I10 Essential (primary) hypertension; G47.30 Sleep apnea, unspecified; E66.01 Morbid (severe) obesity due to excess calories; Z68.43 Body mass index [BMI] 50.0-59.9, adult; Z99.89 Dependence on other enabling machines and devices; Z88.1 Allergy status to other antibiotic agents; Z87.442 Personal history of urinary calculi; Z79.82 Long term (current) use of aspirin; Z79.51 Long term (current) use of inhaled steroids
CPT/HCPCS: 36415; 70450; 71045; 80053; 81000; 85025

== ENCOUNTER 2021-02-03 20:21 | Inpatient (IN) | payer MEDICARE ==
[~2021-02-03] VITALS: Ht 170 cm; Wt 132.0 kg
[~2021-02-03 20:21] MED LIST changes: -LISI40TA PO; +LISI40TA9 PO
[2021-02-03] MEDS ORDERED: LACTATED RINGERS 1,000 ML IV STA (20:45)
[2021-02-03] MEDS ORDERED: LACTATED RINGERS 1,000 ML IV ONE (20:45)
[2021-02-03] MEDS ORDERED: ACETAMINOPHEN 500 MG TAB (TYLENOL) PO PRN (20:45)
[2021-02-03] MEDS ORDERED: CEFEPIME INJECTION 1,000 MG in WATER (STERILE) FOR INJECTION 10 ML IV ONE (20:45)
--- NOTE | 2021-02-03 20:50 | ED General ---
General Stated Complaint: BODY ACHES/CHILLS/N/V/D Source of Information: Patient Exam Limitations: No Limitations History of Present Illness Date Seen by Provider: Feb 03, 2021 Time Seen by Provider: 20:27 Initial Comments Patient to the ER by private conveyance with chief complaint of malaise, fever, chills, body aches, weakness and shortness of air and dehydration all starting today. His brother went to check on him today and thought he left the office or give him some water this morning. He says he did not move much when he went to check on him again this evening so he brought him into the ER. No known sick contacts. He has not had his Covid vaccination. He has minimal occasional cough is nonproductive. Mild shortness of breath. Does not smoke drink or do drugs. Does not have a history of COPD asthma or pulmonary disease. He does have a history of kidney stones and has some dysuria for the past day or 2 without any blood in the urine. No back pain. He is known to Dr. Gonzalez. He takes opiates daily for history of osteoarthritis. No history of abdominal surgeries. Patient states he is also on phentermine for weight loss. Allergies and Home Medications Allergies Coded Allergies: ampicillin (Unverified Allergy, Intermediate, HIVES, 05/05/12) Home Medications Aspirin 81 Mg Tablet.dr, 81 MG PO DAILY, (Reported) Last Action: Reviewed Fexofenadine HCl 180 Mg Tablet, 180 MG PO DAILY, (Reported) Last Action: Reviewed Finasteride 5 Mg Tablet, 5 MG PO DAILY, (Reported) Last Action: Reviewed Hydrocodone/Acetaminophen 1 Each Tablet, 1 EACH PO BID PRN for PAIN-MODERATE (5- 7), (Reported) Last Action: Reviewed Meloxicam 15 Mg Tablet, 15 MG PO DAILY, (Reported) Last Action: Reviewed Montelukast Sodium 10 Mg Tablet, 10 MG PO DAILY, (Reported) Last Action: Reviewed Phentermine HCl 37.5 Mg Tablet, 37.5 MG PO DAILY, (Reported) Last Action: Reviewed Patient Home Medication List Home Medication List Reviewed: Yes Review of Systems Review of Systems Constitutional: chills, fever, malaise, weakness EENTM: No hearing loss, No ear pain Respiratory: cough; No phlegm; short of breath; No wheezing Cardiovascular: No edema, No palpitations Gastrointestinal: No abdominal pain, No nausea, No vomiting Genitourinary: see HPI, dysuria; No frequency, No hematuria Musculoskeletal: No back pain, No joint pain All Other Systems Reviewed Negative Unless Noted: Yes Past Qjlrsmt-Vxrqqg-Gmgweh Hx Patient Social History Alcohol Use: Rarely Uses Alcohol Beverage of Choice: Beer Drug of Choice: Denies Smoking Status: Former Smoker Former Smoker, Quit: Jul 10, 1990 2nd Hand Smoke Exposure: No Recent Hopitalizations: No Immunizations Up To Date Date of Pneumonia Vaccine: May 19, 2015 Date of Influenza Vaccine: Jul 13, 2019 Seasonal Allergies Seasonal Allergies: No Past Medical History Surgeries: Yes (RENAL STONE REMOVAL X 3; RIGHT KNEE ARTHROSCOPY) Orthopedic, Renal Respiratory: Yes (cpap) Sleep Apnea Currently Using CPAP: Yes Cardiac: Yes Chronic Edema/Swelling, Hypertension Neurological: No Reproductive Disorders: No Genitourinary: Yes Benign Prostatic Hyperpl, Kidney Stones Gastrointestinal: No Musculoskeletal: Yes Arthritis Endocrine: Yes (MORBID OBESITY) HEENT: No Cancer: No Psychosocial: No Integumentary: No Blood Disorders: No Physical Exam-Suspected Sepsis Physical Exam Vital Signs Vital Signs - First Documented 02/03/21 20:31 Temp 38.8 Pulse 105 Resp 20 B/P (MAP) 121/58 (79) Pulse Ox 98 O2 Delivery Room Air Capillary Refill : Height, Weight, BMI Height: 5'7.00" Weight: 325lbs. 6.0oz. 147.866227yw; 52.00 BMI Method:Stated General Appearance: Moderate Distress, Obese (Morbid) Eyes: Bilateral Eye Normal Inspection, Bilateral Eye PERRL, Bilateral Eye EOMI HEENT: PERRL/EOMI, Pharynx Normal, Moist Mucous Membranes Neck: Full Range of Motion, Normal Inspection Respiratory: Lungs Clear, Normal Breath Sounds, Accessory Muscle Use (Mild), Respiratory Distress (Mild with oxygen saturations 96% on 24 breaths/min) Cardiovascular: Regular Rate, Rhythm, Normal Peripheral Pulses, Tachycardia (105) Gastrointestinal: Normal Bowel Sounds, Soft, Tenderness (Bilateral lower quadrants.) Extremity: Normal Capillary Refill, Non Tender Neurologic/Psychiatric: Oriented x3; No Normal Mood/Affect (Flat affect); Other (GCS 14, somnolent) Skin: normal color, warm/dry Focused Exam Lactate Level 02/03/21 20:46: Lactic Acid Level 1.82 Lactic Acid Level Progress/Results/Core Measures Suspected Sepsis SIRS Temperature: Pulse: Respiratory Rate: Laboratory Tests 02/03/21 20:46: White Blood Count 12.8H 02/04/21 03:28: White Blood Count 9.6 Blood Pressure / Mean: 02/03/21 20:46: Lactic Acid Level 1.82 Laboratory Tests 02/03/21 20:46: Creatinine 2.30H, INR Comment 1.2, Platelet Count 206, Total Bilirubin 0.9 02/04/21 03:28: Creatinine 2.16H, Platelet Count 143 02/05/21 05:57: Results/Orders Lab Results Laboratory Tests Test 02/03/21 20:37 02/03/21 20:46 02/03/21 21:15 02/03/21 22:45 Range/Units Influenza Type A (RT-PCR) Not Detected Not Detecte Influenza Type B (RT-PCR) Not Detected Not Detecte SARS-CoV-2 RNA (RT-PCR) Not Detected Not Detecte White Blood Count 12.8 H 4.3-11.0 10^3/uL Red Blood Count 4.31 4.30-5.52 10^6/uL Hemoglobin 13.2 L 13.3-17.7 g/dL Hematocrit 39 L 40-54 % Mean Corpuscular Volume 91 80-99 fL Mean Corpuscular Hemoglobin 31 25-34 pg Mean Corpuscular Hemoglobin Concent 34 32-36 g/dL Red Cell Distribution Width 14.5 10.0-14.5 % Platelet Count 206 130-400 10^3/uL Mean Platelet Volume 10.1 9.0-12.2 fL Immature Granulocyte % (Auto) 0 % Neutrophils (%) (Auto) 90 H 42-75 % Lymphocytes (%) (Auto) 3 L 12-44 % Monocytes (%) (Auto) 6 0-12 % Eosinophils (%) (Auto) 0 0-10 % Basophils (%) (Auto) 1 0-10 % Neutrophils # (Auto) 11.5 H 1.8-7.8 10^3/uL Lymphocytes # (Auto) 0.4 L 1.0-4.0 10^3/uL Monocytes # (Auto) 0.8 0.0-1.0 10^3/uL Eosinophils # (Auto) 0.0 0.0-0.3 10^3/uL Basophils # (Auto) 0.1 0.0-0.1 10^3/uL Immature Granulocyte # (Auto) 0.1 0.0-0.1 10^3/uL Neutrophils % (Manual) 89 % Lymphocytes % (Manual) 5 % Monocytes % (Manual) 5 % Band Neutrophils 1 % Blood Morphology Comment NORMAL Prothrombin Time 15.6 H 12.2-14.7 SEC INR Comment 1.2 0.8-1.4 Activated Partial Thromboplast Time 36 H 24-35 SEC Sodium Level 139 135-145 MMOL/L Potassium Level 4.0 3.6-5.0 MMOL/L Chloride Level 104 98-107 MMOL/L Carbon Dioxide Level 21 21-32 MMOL/L Anion Gap 14 5-14 MMOL/L Blood Urea Nitrogen 26 H 7-18 MG/DL Creatinine 2.30 H 0.60-1.30 MG/DL Estimat Glomerular Filtration Rate 28 BUN/Creatinine Ratio 11 Glucose Level 104 70-105 MG/DL Lactic Acid Level 1.82 0.50-2.00 MMOL/L Calcium Level 9.4 8.5-10.1 MG/DL Corrected Calcium 9.7 8.5-10.1 MG/DL Total Bilirubin 0.9 0.1-1.0 MG/DL Aspartate Amino Transf (AST/SGOT) 21 5-34 U/L Alanine Aminotransferase (ALT/SGPT) 13 0-55 U/L Alkaline Phosphatase 96 40-136 U/L B-Type Natriuretic Peptide 368.6 H <100.0 PG/ML Total Protein 7.5 6.4-8.2 GM/DL Albumin 3.6 3.2-4.5 GM/DL Blood Gas Puncture Site LEFT RADIAL Blood Gas Patient Temperature 101.0 Arterial Blood pH 7.49 H 7.37-7.43 Arterial Blood Partial Pressure CO2 29 L 35-45 MMHG Arterial Blood Partial Pressure O2 105 H 79-93 MMHG Arterial Blood HCO3 21 L 23-27 MMOL/L Arterial Blood Total CO2 22.0 21.0-31.0 MMOL/L Arterial Blood Oxygen Saturation 98 94-100 % Arterial Blood Base Excess -1.6 -2.5-2.5 MMOL/L Corby Test YES-POS Blood Gas Ventilator Setting NO Blood Gas Inspired Oxygen 0 Urine Color ORANGE Urine Clarity CLOUDY Urine pH 8.5 5-9 Urine Specific [place] 1.010 L 1.016-1.022 Urine Protein 2+ H NEGATIVE Urine Glucose (UA) NEGATIVE NEGATIVE Urine Ketones TRACE H NEGATIVE Urine Nitrite POSITIVE H NEGATIVE Urine Bilirubin NEGATIVE NEGATIVE Urine Urobilinogen 0.2 < = 1.0 MG/DL Urine Leukocyte Esterase 3+ H NEGATIVE Urine RBC (Auto) TRACE-I NEGATIVE Urine RBC 2-5 H /HPF Urine WBC 10-25 H /HPF Urine Squamous Epithelial Cells 5-10 /HPF Urine Crystals NONE /LPF Urine Amorphous Sediment FEW ABIMAEL PHOSPHATE H /LPF Urine Bacteria MODERATE H /HPF Urine Casts NONE /LPF Urine Mucus NEGATIVE /LPF Urine Culture Indicated CULTURE PENDING Test 02/04/21 03:28 02/05/21 05:57 Range/Units White Blood Count 9.6 4.3-11.0 10^3/uL Red Blood Count 3.56 L 4.30-5.52 10^6/uL Hemoglobin 10.7 L 13.3-17.7 g/dL Hematocrit 33 L 40-54 % Mean Corpuscular Volume 92 80-99 fL Mean Corpuscular Hemoglobin 30 25-34 pg Mean Corpuscular Hemoglobin Concent 33 32-36 g/dL Red Cell Distribution Width 14.6 H 10.0-14.5 % Platelet Count 143 130-400 10^3/uL Mean Platelet Volume 10.5 9.0-12.2 fL Immature Granulocyte % (Auto) 0 % Neutrophils (%) (Auto) 88 H 42-75 % Lymphocytes (%) (Auto) 5 L 12-44 % Monocytes (%) (Auto) 7 0-12 % Eosinophils (%) (Auto) 0 0-10 % Basophils (%) (Auto) 1 0-10 % Neutrophils # (Auto) 8.4 H 1.8-7.8 10^3/uL Lymphocytes # (Auto) 0.5 L 1.0-4.0 10^3/uL Monocytes # (Auto) 0.6 0.0-1.0 10^3/uL Eosinophils # (Auto) 0.0 0.0-0.3 10^3/uL Basophils # (Auto) 0.1 0.0-0.1 10^3/uL Immature Granulocyte # (Auto) 0.0 0.0-0.1 10^3/uL Sodium Level 138 135-145 MMOL/L Potassium Level 3.8 3.6-5.0 MMOL/L Chloride Level 107 98-107 MMOL/L Carbon Dioxide Level 19 L 21-32 MMOL/L Anion Gap 12 5-14 MMOL/L Blood Urea Nitrogen 26 H 7-18 MG/DL Creatinine 2.16 H 0.60-1.30 MG/DL Estimat Glomerular Filtration Rate 31 BUN/Creatinine Ratio 12 Glucose Level 109 H 70-105 MG/DL Calcium Level 8.3 L 8.5-10.1 MG/DL Micro Results Microbiology 02/03/21 Urine Culture - Preliminary, Resulted Proteus species 02/03/21 Blood Culture - Preliminary, Resulted Gram Negative Kervin 02/03/21 Blood Culture - Preliminary, Resulted Gram Negative Kervin My Orders Orders - MADHU WESTFALL Arterial Blood Gas (02/03/21 20:41) Covid 19 Inhouse Test (02/03/21 20:41) Influenza A And B By Pcr (02/03/21 20:41) Cbc With Automated Diff (02/03/21 20:41) Comprehensive Metabolic Panel (02/03/21 20:41) Blood Culture (02/03/21 20:41) Sputum Culture (02/03/21 20:41) Urinalysis (02/03/21 20:41) Urine Culture (02/03/21 20:41) Protime With Inr (02/03/21 20:41) Partial Thromboplastin Time (02/03/21 20:41) Chest 1 View, Ap/Pa Only (02/03/21 20:41) Acetaminophen Tablet (Tylenol Tablet) (02/03/21 20:45) Ed Iv/Invasive Line Start (02/03/21 20:41) Ed Iv/Invasive Line Start (02/03/21 20:41) Vital Signs Adult Sepsis Patie Q15M (02/03/21 20:41) O2 (02/03/21 20:41) Remove Rings In Anticipation O (02/03/21 20:41) Lactic Acid Analyzer (02/03/21 20:41) Lactated Ringers (Lr 1000 Ml Iv Solution (02/03/21 20:45) Cefepime Injection (Maxipime Injection) (02/03/21 20:45) Vancomycin Injection (Vancomycin Injecti (02/03/21 20:45) Lactated Ringers (Lr 1000 Ml Iv Solution (02/03/21 20:45) Manual Differential (02/03/21 20:46) Hydrocodone/Apap 5/325 Tablet (Lortab 5 (02/03/21 21:45) BNP (02/03/21 22:58) Ct Abd/Pelvis Wo(Kidney Stone) (02/03/21 23:01) Ed Iv/Invasive Line Start (02/03/21 23:29) Ns Iv 1000 Ml (Sodium Chloride 0.9%) (02/03/21 23:30) Medications Given in ED Vital Signs/I&O 02/04/21 02/04/21 02/04/21 02/04/21 19:00 19:00 19:50 20:00 Temp 36.6 Pulse 84 84 Resp 26 B/P (MAP) 148/87 (107) Pulse Ox 95 O2 Delivery Room Air Room Air 02/04/21 02/04/21 02/04/21 02/04/21 20:00 21:00 21:47 22:00 Pulse 87 83 96 86 Resp 21 B/P (MAP) 150/76 (131) 169/104 (121) 172/83 (117) 143/79 (102) O2 Delivery Room Air Room Air Room Air Room Air 02/04/21 02/05/21 02/05/21 02/05/21 23:00 00:00 00:00 01:00 Pulse 95 89 92 Resp 20 B/P (MAP) 142/79 (98) 140/77 (93) 148/76 (100) Pulse Ox 95 O2 Delivery Room Air Room Air Room Air Room Air 02/05/21 02/05/21 02/05/21 02/05/21 01:00 02:00 03:00 04:00 Pulse 92 92 91 111 Resp 18 B/P (MAP) 151/77 (107) 146/77 (106) 154/85 (114) O2 Delivery Room Air Room Air Room Air 02/05/21 02/05/21 04:00 05:00 Pulse 90 Resp 19 B/P (MAP) 139/77 (98) Pulse Ox 95 O2 Delivery Room Air Room Air Capillary Refill : Progress Note #1: Time: 20:49 Progress Note Sepsis work-up, gram of Tylenol, Covid and ABG. 2 L of fluids will be greater than 20 mL/kg based on an adjusted ideal body weight of 197 pounds. His allergy to ampicillin is rash so cefepime should be fine. Vancomycin for broad-spectrum coverage as it is unclear whether he has urinary or respiratory source. Progress Note #2: Time: 23:23 Progress Note Hydrocodone was ordered since he takes this routinely for his osteoarthritis and was having some back pain. Will get a CT of his abdomen and pelvis without IV contrast looking for a kidney stone. Urine is still pending. BNP was added. His creatinine is at baseline it was 2.1 2 years ago. His initial soft blood pressures are improving and he stayed around 110 systolic over 60. He is not done with his initial infusion of fluids. We will give him 1/3 L to top 30 mL/kg. Diagnostic Imaging Diagonstic Imaging: Xray Plain Films/CT/US/NM/MRI: chest Comments No acute cardiopulmonary process on 1 view chest x-ray. [facility] [place], [place] NAME: CHRISTINA SILVEIRA [facility] REC#: [id number] PT STATUS: ADM IN : 1950 PHYSICIAN: MADHU WESTFALL MD ADMIT DATE: 02/03/21/ICU Signed Date of Exam:02/03/21 CHEST 1 VIEW, AP/PA ONLY Indication: Sepsis. Time of exam: 10:20 PM Comparison is made with prior chest from 07/26/2019. Heart is enlarged. Lungs are clear. No infiltrates are seen. There is no failure. No effusion or pneumothorax is identified. Impression: Cardiomegaly. The study is otherwise unremarkable. Dictated by: Dictated on workstation # [id number] Dict: 02/04/21 0817 Trans: 02/04/21 1556 [facility] [id number] Interpreted by: KARI JAQUEZ MD Electronically signed by: KARI JAQUEZ MD 02/04/21 1556 Reviewed: Reviewed by Me Diagonstic Imaging: CT Plain Films/CT/US/NM/MRI: abdomen, pelvis Comments Marriage ureteral stone at the level of the inferior pole of the left kidney with associated inflammatory stranding of the perinephric fat. 6.5 mm proximal left ureteral stone approximately 2-1/2 cm from the left UVJ with mild left hydronephrosis and asymmetric left perinephric fat stranding. Trace free fluid in the dependent pelvis, new from the previous examination. No loculation. Etiology of the fluid is not clearly defined on this examination. [facility]. [place], [place] NAME: CHRISTINA SILVEIRA [facility] REC#: [id number] PT STATUS: ADM IN : 1950 PHYSICIAN: MADHU WESTFALL MD ADMIT DATE: 02/03/21/ICU Draft Date of Exam:02/03/21 CT ABD/PELVIS WO(KIDNEY STONE) PROCEDURE: CT urinary tract, rule out kidney stone. TECHNIQUE: Multiple contiguous axial images were obtained through the abdomen and pelvis without the use of intravenous contrast. Auto Exposure Controls were utilized during the CT exam to meet ALARA standards for radiation dose reduction. INDICATION: Flank pain. Concern for kidney stone. COMPARISON: CT abdomen and pelvis performed on 05/07/2012. FINDINGS: Absence of intravenous contrast decreases sensitivity for detection of lymphadenopathy, focal lesions and vascular pathology. There is mild linear scarring/atelectasis in the left lung base. The visualized heart is normal in size. The liver, gallbladder, spleen, pancreas and adrenal glands are unremarkable. There is a 7 mm calculus in the proximal left, just beyond the ureteropelvic junction. There appears to be a much smaller punctate calculus immediately adjacent to this. There is mild left hydronephrosis, with moderate perinephric stranding. There are at least 2 additional nonobstructing calyceal calculi measuring 6 to 7 mm in the left lower pole collecting system. There is no renal calculus or hydronephrosis on the left. The left ureter distal to the calculus and right ureter are normal. There is a small hiatal hernia. Small bowel and colon are normal in course and caliber, without evidence of wall thickening or obstruction. There is mild colonic diverticulosis, without evidence of acute diverticulitis. The appendix is not definitely visualized. There are no findings to suggest acute cholecystitis. There is no pneumoperitoneum. Trace free fluid is demonstrated in the cul-de-sac, likely reactive in nature. No loculated collection is identified. The bladder appears mildly thick-walled, however, is not well-distended. The prostate gland is not enlarged. No lymphadenopathy is appreciated. The abdominal wall is unremarkable. Multilevel degenerative and scoliotic changes are demonstrated in the spine. No acute osseous abnormality is identified. IMPRESSION: There is an obstructing 7 mm calculus in the proximal left ureter, just beyond the ureteropelvic junction which causes mild left hydronephrosis. There is moderate left perinephric stranding which is largely reactive in nature to the obstructing calculus, however, forniceal rupture is also in the differential. Evaluation for infection is limited without IV contrast, perforation should be excluded on a clinical basis. There is apparent mild bladder wall thickening, which may be artifactual in nature secondary to underdistention, with cystitis not excluded. Additional nonobstructing calyceal calculi are demonstrated in the lower pole collecting system of the left kidney. Trace free fluid in the pelvis is likely reactive in nature. No organized or drainable fluid collection is appreciated. Findings are in agreement with initial teleradiology report. Dictated on workstation # [id number] Dict: 02/04/21 0650 Trans: 02/04/21 0710 [facility] [id number] Interpreted by: ALEX RADER DO Electronically signed by: Reviewed: Reviewed Night [facility] Study, Reviewed by Ar Departure Communication (Admissions) Time/Spoke to Admitting Phy: 00:01 Discussed the case with Dr. Douglass who agrees to admit the patient and he will make contact with urology in the morning Impression Primary Impression: Sepsis Qualified Codes: A41.9 - Sepsis, unspecified organism Additional Impressions: Pyelonephritis Ureteral calculus, left Disposition: ADMITTED INPATIENT Condition: Stable Admissions Decision to Admit Reason: Admit from ER (General) Decision to Admit/Date: Feb 03, 2021 Time/Decision to Admit Time: 20:45 Departure-Patient Inst. Referrals: CELE GONZALEZ DO (PCP/Family) Primary Care Physician MADHU WESTFALL Feb 03, 2021 20:50
[2021-02-03 21:00] LABS: BASOPHILS # (AUTO) 0.1 10^3/uL (0.0-0.1); BASOPHILS % (AUTO) 1 % (0-10); EOSINOPHILS % (AUTO) 0 % (0-10); HEMATOCRIT 39 % (40-54); HEMOGLOBIN 13.2 g/dL (13.3-17.7); LYMPHOCYTES # (AUTO) 0.4 10^3/uL (1.0-4.0); LYMPHOCYTES % (AUTO) 3 % (12-44); MEAN CORPUSCULAR HEMOGLOBIN 31 pg (25-34); MEAN CORPUSCULAR HGB CONC 34 g/dL (32-36); MEAN CORPUSCULAR VOLUME 91 fL (80-99); MEAN PLATELET VOLUME 10.1 fL (9.0-12.2); MONOCYTES # (AUTO) 0.8 10^3/uL (0.0-1.0); MONOCYTES % (AUTO) 6 % (0-12); NEUTROPHILS # (AUTO) 11.5 10^3/uL (1.8-7.8); NEUTROPHILS % (AUTO) 90 % (42-75); PLATELET COUNT 206 10^3/uL (130-400); WHITE BLOOD COUNT 12.8 10^3/uL (4.3-11.0)
[2021-02-03 21:07] LABS: ALBUMIN 3.6 GM/DL (3.2-4.5)
[2021-02-03 21:08] LABS: CALCIUM 9.4 MG/DL (8.5-10.1)
[2021-02-03 21:09] LABS: INR 1.2 (0.8-1.4); PROTHROMBIN TIME PATIENT 15.6 SEC (12.2-14.7); TOTAL PROTEIN 7.5 GM/DL (6.4-8.2)
[2021-02-03 21:11] LABS: BILIRUBIN,TOTAL 0.9 MG/DL (0.1-1.0)
[2021-02-03] MEDS: VANCOMYCIN INJECTION 1,000 MG in NS (IVPB) 250 ML IV SCH ×2 (21:11→22:19)
[2021-02-03 21:13] LABS: CREATININE SERUM 2.3 MG/DL (0.60-1.30)
[2021-02-03 21:26] LABS: ABG BASE EXCESS -1.6 MMOL/L (-2.5-2.5); ABG OXYGEN SATURATION 98 % (94-100); ABG PCO2 29 MMHG (35-45); ABG PH 7.49 (7.37-7.43); ABG PO2 105 MMHG (79-93)
[2021-02-03 21:28] LABS: ALLENS TEST YES-POS; INSPIRED O2 0; VENTILATOR NO
[2021-02-03 21:39] LABS: BAND NEUTROPHILS 1 %; LYMPHOCYTES % (MANUAL) 5 %; MONOCYTES % (MANUAL) 5 %; NEUTROPHILS % (MANUAL) 89 %; RBC MORPH NORMAL
[2021-02-03] MEDS ORDERED: HYDROcodone/APAP 5 MG/325 MG (LORTAB) TAB PO ONE (21:45)
[2021-02-03 22:57] LABS: BILIRUBIN,URINE NEGATIVE (NEGATIVE); CLARITY,URINE CLOUDY; COLOR,URINE ORANGE; GLUCOSE, URINE (UA) NEGATIVE (NEGATIVE); KETONES,URINE TRACE (NEGATIVE); LEUKOCYTE ESTERASE ,URINE 3+ (NEGATIVE); NITRITE,URINE POSITIVE (NEGATIVE); PH,URINE 8.5 (5-9); PROTEIN,URINE 2+ (NEGATIVE)
[2021-02-03] MEDS ORDERED: NS IV 1000 ML 1,000 ML IV SCH (23:30)
[2021-02-03 23:34] LABS: AMORPHOUS SEDIMENT,UR FEW AMOR PHOSPHATE /LPF; BACTERIA,URINE MODERATE /HPF
[2021-02-04] VITALS (25 sets, daily range): BP systolic 111–172; BP diastolic 50–109
[2021-02-04] MEDS ORDERED: EPINEPHrine 1 MG INJECTION 4 MG in NS (IVPB) 248 ML IV SCH (00:45)
[2021-02-04] MEDS ORDERED: ACETAMINOPHEN 325 MG TABLET PO PRN (00:45)
[2021-02-04] MEDS ORDERED: ONDANSETRON 4 MG/2 ML (SDV) Z0FRAN IV PRN (00:45)
[2021-02-04] MEDS ORDERED: ANTACID SUSP 30 ML UDC (MYLANTA) PO PRN (00:45)
[2021-02-04] MEDS: LACTATED RINGERS 1,000 ML IV SCH ×4 (01:03→22:45)
[2021-02-04] MEDS: HYDROcodone/APAP 5 MG/325 MG (LORTAB) TAB PO PRN ×3 (01:03→15:58)
[2021-02-04] MEDS: NOREPINEPHRINE 8 MG/250 ML 250 ML IV SCH ×2 (01:18→07:34)
[2021-02-04] MEDS: VASOPRESSIN INJECTION 20 UNIT in NS (IVPB) 100 ML IV SCH ×2 (01:18→07:33)
[2021-02-04] MEDS ORDERED: RT-ALBUTEROL SULF 2.5 MG/3 ML PRE-MIX VIAL INH PRN (03:00)
[2021-02-04 03:52] LABS: BASOPHILS # (AUTO) 0.1 10^3/uL (0.0-0.1); BASOPHILS % (AUTO) 1 % (0-10); EOSINOPHILS % (AUTO) 0 % (0-10); HEMATOCRIT 33 % (40-54); HEMOGLOBIN 10.7 g/dL (13.3-17.7); LYMPHOCYTES # (AUTO) 0.5 10^3/uL (1.0-4.0); LYMPHOCYTES % (AUTO) 5 % (12-44); MEAN CORPUSCULAR HEMOGLOBIN 30 pg (25-34); MEAN CORPUSCULAR HGB CONC 33 g/dL (32-36); MEAN CORPUSCULAR VOLUME 92 fL (80-99); MEAN PLATELET VOLUME 10.5 fL (9.0-12.2); MONOCYTES # (AUTO) 0.6 10^3/uL (0.0-1.0); MONOCYTES % (AUTO) 7 % (0-12); NEUTROPHILS # (AUTO) 8.4 10^3/uL (1.8-7.8); NEUTROPHILS % (AUTO) 88 % (42-75); PLATELET COUNT 143 10^3/uL (130-400); WHITE BLOOD COUNT 9.6 10^3/uL (4.3-11.0)
[2021-02-04 03:59] LABS: POTASSIUM 3.8 MMOL/L (3.6-5.0)
[2021-02-04 04:01] LABS: CALCIUM 8.3 MG/DL (8.5-10.1)
[2021-02-04 04:05] LABS: CREATININE SERUM 2.16 MG/DL (0.60-1.30)
--- NOTE | 2021-02-04 07:11 | Diagnostic Imaging Report ---
PROCEDURE: CT urinary tract, rule out kidney stone. TECHNIQUE: Multiple contiguous axial images were obtained through the abdomen and pelvis without the use of intravenous contrast. Auto Exposure Controls were utilized during the CT exam to meet ALARA standards for radiation dose reduction. INDICATION: Flank pain. Concern for kidney stone. COMPARISON: CT abdomen and pelvis performed on 05/07/2012. FINDINGS: Absence of intravenous contrast decreases sensitivity for detection of lymphadenopathy, focal lesions and vascular pathology. There is mild linear scarring/atelectasis in the left lung base. The visualized heart is normal in size. The liver, gallbladder, spleen, pancreas and adrenal glands are unremarkable. There is a 7 mm calculus in the proximal left, just beyond the ureteropelvic junction. There appears to be a much smaller punctate calculus immediately adjacent to this. There is mild left hydronephrosis, with moderate perinephric stranding. There are at least 2 additional nonobstructing calyceal calculi measuring 6 to 7 mm in the left lower pole collecting system. There is no renal calculus or hydronephrosis on the left. The left ureter distal to the calculus and right ureter are normal. There is a small hiatal hernia. Small bowel and colon are normal in course and caliber, without evidence of wall thickening or obstruction. There is mild colonic diverticulosis, without evidence of acute diverticulitis. The appendix is not definitely visualized. There are no findings to suggest acute cholecystitis. There is no pneumoperitoneum. Trace free fluid is demonstrated in the cul-de-sac, likely reactive in nature. No loculated collection is identified. The bladder appears mildly thick-walled, however, is not well-distended. The prostate gland is not enlarged. No lymphadenopathy is appreciated. The abdominal wall is unremarkable. Multilevel degenerative and scoliotic changes are demonstrated in the spine. No acute osseous abnormality is identified. IMPRESSION: There is an obstructing 7 mm calculus in the proximal left ureter, just beyond the ureteropelvic junction which causes mild left hydronephrosis. There is moderate left perinephric stranding which is largely reactive in nature to the obstructing calculus, however, forniceal rupture is also in the differential. Evaluation for infection is limited without IV contrast and pyelonephritis should be excluded on a clinical basis. There is apparent mild bladder wall thickening, which may be artifactual in nature secondary to underdistention, with cystitis not excluded. Additional nonobstructing calyceal calculi are demonstrated in the lower pole collecting system of the left kidney. Trace free fluid in the pelvis is likely reactive in nature. No organized or drainable fluid collection is appreciated. Findings are in agreement with initial teleradiology report. Dictated by: Dictated on workstation # [id number]
[2021-02-04] MEDS: FINASTERIDE (PROSCAR) 5 MG TAB PO SCH (08:11)
--- NOTE | 2021-02-04 08:22 | Diagnostic Imaging Report ---
Indication: Sepsis. Time of exam: 10:20 PM Comparison is made with prior chest from 07/26/2019. Heart is enlarged. Lungs are clear. No infiltrates are seen. There is no failure. No effusion or pneumothorax is identified. Impression: Cardiomegaly. The study is otherwise unremarkable. Dictated by: Dictated on workstation # [id number]
--- NOTE | 2021-02-04 08:33 | History & Physical-Hospitalist ---
History of Present Illness HPI/Chief Complaint Pt is a 70yoCM with a PMH of kidney stones who presented to the ER due to fever, weakness, and dehydration. He reports he has not been feeling well for a few days. His brother checked on him twice yesterday and thought he was getting worse so brought him in for evaluation. Pt reports back and groin pain similar to his previous kidney stones. He was found to have a UTI with an obstructing left ureteral stone. On arrival his BP was somewhat low so he was admitted to the ICU. He reports feeling better today but still not well. He is shivering and feels like he has a fever. He did have some SOB and has not been COVID vaccinated. COVID swab here was negative. Source: patient Exam Limitations: no limitations Date Seen 02/04/21 Time Seen by a Provider: 08:28 Attending Physician Karina Montes De Oca MD PCP Danny Gonzalez DO Referring Physician Date of Admission Feb 03, 2021 at 23:40 Home Medications & Allergies Home Medications Reviewed patient Home Medication Reconciliation performed by pharmacy medication reconciliations water quality technician and/or nursing. Patients Allergies have been reviewed. Allergies Allergies Coded Allergies ampicillin (Unverified Allergy, Intermediate, HIVES, 05/05/12) Past Nbakzqi-Uddhdt-Cazzof Hx Patient Social History Tobacco Use?: No Smoking Status: Former Smoker (q 30 years ago) Use of E-Cig and/or Vaping dev: No Substance use?: No Alcohol Use?: Yes Alcohol Frequency: Rarely Pt feels they are or have been: No Immunizations Up To Date Date of Influenza Vaccine: Jul 13, 2019 Date of Pneumonia Vaccine: May 19, 2015 Seasonal Allergies Seasonal Allergies: No Current Status Advance Directives: No Communicates: Verbally Primary Language: Malaysian Is interpretation needed?: No Sensory deficits: Vision impairment Implanted or Applied Medical D: None Past Medical History Surgeries: Orthopedic, Renal Sleep Apnea Currently Using CPAP: Yes Chronic Edema/Swelling Benign Prostatic Hyperpl, Kidney Stones Arthritis Blood Disorders: No Family Medical History Reviewed Nursing Family Hx No Pertinent Family Hx Review of Systems Constitutional: fever, malaise, weakness EENTM: no symptoms reported Respiratory: short of breath Cardiovascular: No chest pain, No edema, No palpitations Gastrointestinal: No abdominal pain, No nausea, No vomiting Genitourinary: see HPI Musculoskeletal: back pain (chronic) Skin: no symptoms reported Psychiatric/Neurological: No Symptoms Reported Physical Exam Physical Exam Vital Signs Vital Signs - First Documented 02/03/21 20:31 Temp 38.8 Pulse 105 Resp 20 B/P (MAP) 121/58 (79) Pulse Ox 98 O2 Delivery Room Air Capillary Refill : Less Than 3 Seconds Height, Weight, BMI Height: 5'7.00" Weight: 325lbs. 6.0oz. 147.413092al; 45.95 BMI Method:Stated General Appearance: No Apparent Distress, Chronically ill, Obese HEENT: PERRL/EOMI, Moist Mucous Membranes Neck: Normal Inspection, Supple Respiratory: Lungs Clear, No Accessory Muscle Use, No Respiratory Distress Cardiovascular: Regular Rate, Rhythm, No JVD, No Murmur Gastrointestinal: Normal Bowel Sounds, Non Tender, Soft Extremity: Pedal Edema Neurologic/Psychiatric: Alert, Oriented x3, Normal Mood/Affect Skin: Normal Color, Warm/Dry Results Results/Procedures Labs Laboratory Tests 02/03/21 20:46 02/04/21 03:28 Patient resulted labs reviewed. Imaging: Reviewed Imaging Report Imaging [facility], [place] NAME: CHRISTINA SILVEIRA [facility] REC#: [id number] PT STATUS: ADM IN : 1950 PHYSICIAN: MADHU WESTFALL MD ADMIT DATE: 02/03/21/ICU Draft Date of Exam:02/03/21 CT ABD/PELVIS WO(KIDNEY STONE) PROCEDURE: CT urinary tract, rule out kidney stone. TECHNIQUE: Multiple contiguous axial images were obtained through the abdomen and pelvis without the use of intravenous contrast. Auto Exposure Controls were utilized during the CT exam to meet ALARA standards for radiation dose reduction. INDICATION: Flank pain. Concern for kidney stone. COMPARISON: CT abdomen and pelvis performed on 05/07/2012. FINDINGS: Absence of intravenous contrast decreases sensitivity for detection of lymphadenopathy, focal lesions and vascular pathology. There is mild linear scarring/atelectasis in the left lung base. The visualized heart is normal in size. The liver, gallbladder, spleen, pancreas and adrenal glands are unremarkable. There is a 7 mm calculus in the proximal left, just beyond the ureteropelvic junction. There appears to be a much smaller punctate calculus immediately adjacent to this. There is mild left hydronephrosis, with moderate perinephric stranding. There are at least 2 additional nonobstructing calyceal calculi measuring 6 to 7 mm in the left lower pole collecting system. There is no renal calculus or hydronephrosis on the left. The left ureter distal to the calculus and right ureter are normal. There is a small hiatal hernia. Small bowel and colon are normal in course and caliber, without evidence of wall thickening or obstruction. There is mild colonic diverticulosis, without evidence of acute diverticulitis. The appendix is not definitely visualized. There are no findings to suggest acute cholecystitis. There is no pneumoperitoneum. Trace free fluid is demonstrated in the cul-de-sac, likely reactive in nature. No loculated collection is identified. The bladder appears mildly thick-walled, however, is not well-distended. The prostate gland is not enlarged. No lymphadenopathy is appreciated. The abdominal wall is unremarkable. Multilevel degenerative and scoliotic changes are demonstrated in the spine. No acute osseous abnormality is identified. IMPRESSION: There is an obstructing 7 mm calculus in the proximal left ureter, just beyond the ureteropelvic junction which causes mild left hydronephrosis. There is moderate left perinephric stranding which is largely reactive in nature to the obstructing calculus, however, forniceal rupture is also in the differential. Evaluation for infection is limited without IV contrast, perforation should be excluded on a clinical basis. There is apparent mild bladder wall thickening, which may be artifactual in nature secondary to underdistention, with cystitis not excluded. Additional nonobstructing calyceal calculi are demonstrated in the lower pole collecting system of the left kidney. Trace free fluid in the pelvis is likely reactive in nature. No organized or drainable fluid collection is appreciated. Findings are in agreement with initial teleradiology report. Dictated on workstation # [id number] Dict: 02/04/21 0650 Trans: 02/04/21 0710 [facility] [id number] Interpreted by: ALEX RADER DO Electronically signed by: JANNA [facility] Building Directory [facility] [place], [place] NAME: CHRISTINA SILVEIRA [facility] REC#: [id number] PT STATUS: ADM IN : 1950 PHYSICIAN: KARINA MONTES DE OCA MD ADMIT DATE: 02/03/21/ICU Draft Date of Exam:02/04/21 ABDOMEN/KUB 1VIEW EXAMINATION: Abdomen 1 view HISTORY: Sepsis, left ureteral stone COMPARISON: CT abdomen and pelvis 02/03/2021 FINDINGS: There is a moderate amount of gas and stool throughout the colon. Nonobstructive bowel gas pattern. There are 2 radiopacities overlying the expected location left kidney measuring up to 0.4 cm. There is a 0.5 cm opacity in the expected location of the left ureter. Degenerative changes of the hips and spine. Osseous structures are otherwise intact. IMPRESSION: Stable appearance of the 0.5 cm likely left ureteral calculus and left renal calculi measuring up to 0.4 cm. Dictated on workstation # [id number] Dict: 02/04/21 0830 Trans: 02/04/21 0832 [facility] [id number] Interpreted by: JONATHAN AGUIAR DO Electronically signed by: Assessment/Plan Admission Diagnosis Sepsis due to pyelonephritis Admission Status: Inpatient Order (span 2 midnights) Reason for Inpatient Admission: see below Assessment and Plan Sepsis due to pyelonephritis left ureteral stone BPH Discussed with urology will keep NPO in case he needs emergent procedure, plan for stent tomorrow Continue IV abx Await cultures Tylenol for fevers, try to avoid NSAIDs due to CKD Continue home finasteride CKD Stage 3b Appears at baseline from 2 years ago Trend OA Continue home Lortab DVT ppx: Lovenox held for procedure, SCDs Diagnosis/Problems Diagnosis/Problems (1) Sepsis Status: Acute Qualifiers: Sepsis type: sepsis due to unspecified organism Sepsis acute organ dysfunction status: unspecified Qualified Codes: A41.9 - Sepsis, unspecified organism (2) Ureteral calculus, left Status: Acute (3) Pyelonephritis Status: Acute AMELIA MICHEL MD Feb 04, 2021 08:33
--- NOTE | 2021-02-04 08:37 | Diagnostic Imaging Report ---
INDICATION: Sepsis. Time of exam: 3:15 AM Correlation is made with prior chest from one day earlier. Heart size is stable. Lungs appear to be clear. There is minimal linear atelectasis at both bases. No effusion or pneumothorax is identified. IMPRESSION: Mild bibasilar subsegmental atelectasis. The study is otherwise unremarkable. Dictated by: Dictated on workstation # [id number]
[2021-02-04] MEDS: CEFEPIME INJECTION 1,000 MG in WATER (STERILE) FOR INJECTION 10 ML IV SCH ×2 (09:31→15:58)
[2021-02-04] MEDS ORDERED: FINA5TAB6 PO (12:22)
[2021-02-04] MEDS ORDERED: HYDR-3817 PO (12:22)
[2021-02-04] MEDS ORDERED: ASPI-1238 PO (12:22)
[2021-02-04] MEDS ORDERED: FEXO-222 PO (12:22)
[2021-02-04] MEDS ORDERED: FEXO-14 PO (12:22)
--- NOTE | 2021-02-04 14:33 | CONSULTATION REPORT ---
DATE OF SERVICE: 02/04/2021 ATTENDING PHYSICIAN: Dr. Dias. SUMMARY: After reviewing the patient's record, x-rays, interviewing him and examining him, this is a 70-year-old white man with a history of urolithiasis, who was admitted through the emergency room because of pain and possible sepsis secondary to a stone in the proximal left ureter causing partial obstruction and also some stones in the lower pole oseas of the right kidney. Patient had some fever at 38 degrees centigrade and still having pain and some nausea. He is on aspirin, last dose taken yesterday. He does have history of urolithiasis with previous as at [facility] and [facility]. His H and P was reviewed, his medication list as well. ALLERGIES: He has no known drug allergies. PAST SURGICAL HISTORY: No previous surgeries beside the stones. FAMILY HISTORY: Noncontributory. PHYSICAL EXAMINATION: VITAL SIGNS: Per chart. He is in mild distress and has a 1+ left CVA tenderness. He is obese. The rest of the physical examination per chart. IMPRESSION: 1. Left proximal ureteral stone with infection and fever and pain. 2. Left lower pole renal stones. PLAN: Since he does have infection and he is on aspirin, we could not do ESWL on him tomorrow; however, we will take him to surgery as long as he stays stable today and do a cystoscopy with attempt to manipulate to bypass the stone and insert a stent, stabilized situation, keep him on antibiotic, keep him off the aspirin and in 2 weeks we will blast the stone when the machine comes back in 2 weeks. The plan was fully explained to the patient and all of his questions were answered. Preop were obtained as well as consent. Job ID: [id number] DocumentID: [id number] Dictated Date: 02/04/2021 10:06:59 Net Developer With [employer] Date: 02/04/2021 14:31:54 Dictated By: RAOUL PATEL MD
[2021-02-04] MEDS: TAMSULOSIN 0.4 MG (FLOMAX) CAP PO SCH (18:09)
[2021-02-04] MEDS ORDERED: VANCOMYCIN INJECTION 1,250 MG in NS (IVPB) 250 ML IV SCH (21:00)
[2021-02-05] VITALS (19 sets, daily range): BP systolic 102–164; BP diastolic 66–89
[2021-02-05] MEDS: LACTATED RINGERS 1,000 ML IV SCH ×2 (05:44→08:58)
[2021-02-05 06:16] LABS: CALCIUM 8.7 MG/DL (8.5-10.1)
[2021-02-05 06:20] LABS: PHOSPHORUS 2.7 MG/DL (2.3-4.7)
[2021-02-05 06:21] LABS: CREATININE SERUM 1.87 MG/DL (0.60-1.30)
[2021-02-05 06:23] LABS: MAGNESIUM 1.6 MG/DL (1.6-2.4)
[2021-02-05] MEDS: POTASSIUM CL 10MEQ/50ML IVPB 50 ML IV SCH (06:25)
[2021-02-05] MEDS: KCL 20 MEQ TAB (K-DUR) PO SCH (06:26)
[2021-02-05] MEDS: MAGNESIUM 1 GM/100 ML IVPB 100 ML IV SCH (06:26)
[2021-02-05] MEDS ORDERED: LACTATED RINGERS 1,000 ML IV PRN (07:15)
--- NOTE | 2021-02-05 07:18 | Progress Note-Pre Operative ---
Pre-Operative Progress Note H&P Reviewed The H&P was reviewed, patient examined and no changes noted. Date Seen by Provider: Feb 05, 2021 Time Seen by Provider: 07:17 Date H&P Reviewed: Feb 05, 2021 Time H&P Reviewed: 07:17 Pre-Operative Diagnosis: LT PROXIMAL URETERAL AND RENAL STONES RAOUL PATEL MD Feb 05, 2021 07:18
[2021-02-05] MEDS ORDERED: fentaNYL INJ 100 MCG/2 ML AMP ONE (07:22)
[2021-02-05] MEDS ORDERED: MIDAZOLAM 2 MG/2 ML (VERSED) VIAL ONE (07:22)
[2021-02-05] MEDS ORDERED: proPOfol 200 MG/20 ML (DIPRIVAN) VIAL IV ONE (07:26)
[2021-02-05] MEDS ORDERED: LIDOCAINE PF 2% 5 ML (XYLOCAINE) VIAL ONE (07:27)
[2021-02-05] MEDS ORDERED: ONDANSETRON 4 MG/2 ML (SDV) Z0FRAN ONE (07:46)
[2021-02-05] MEDS ORDERED: PHENYLEPHRINE 100 MCG/ML 10 ML (ANESTHESIA) SYR ONE (07:46)
[2021-02-05] MEDS ORDERED: SEVOFLURANE (ULTANE) 15 ML INHAL SOLN ONE (07:52)
--- NOTE | 2021-02-05 07:55 | Progress Note-Post Operative ---
Post-Operative Progess Note Surgeon (s)/Rubber Molder (s) Surgeon RAOUL PATEL MD Rubber Molder: NONE Pre-Operative Diagnosis LT PROXIMAL URETERAL AND RENAL STONES Post-Operative Diagnosis SAME Procedure & Operative Findings Date of Procedure 02/05/21 Procedure Performed/Findings CYSTO, LT URETERAL STONE MANIPULATION AND STENT PLACEMENT Anesthesia Type GENERAL Estimated Blood Loss Estimated blood loss (mL): NONE Specimens/Packing Specimens Removed NONE Packing: NONE RAOUL PATEL MD Feb 05, 2021 07:55
[2021-02-05] MEDS: CEFEPIME INJECTION 1,000 MG in WATER (STERILE) FOR INJECTION 10 ML IV SCH ×4 (08:54→17:26)
[2021-02-05] MEDS: FINASTERIDE (PROSCAR) 5 MG TAB PO SCH (08:58)
--- NOTE | 2021-02-05 10:06 | Progress Note - Hospitalist ---
Subjective HPI/CC On Admission Date Seen by Provider: Feb 05, 2021 Time Seen by Provider: 10:00 Pt is a 70yoCM with a PMH of kidney stones who presented to the ER due to fever, weakness, and dehydration. He reports he has not been feeling well for a few days. His brother checked on him twice yesterday and thought he was getting wor se so brought him in for evaluation. Pt reports back and groin pain similar to his previous kidney stones. He was found to have a UTI with an obstructing left ureteral stone. On arrival his BP was somewhat low so he was admitted to the ICU. He reports feeling better today but still not well. He is shivering and feels like he has a fever. He did have some SOB and has not been COVID vaccinated. COVID swab here was negative. Subjective/Events-last exam Pt reports feeling better today. Just had procedure done. Doing well. Discussed plan to transfer out of ICU. Focused Exam Lactate Level 02/03/21 20:46: Lactic Acid Level 1.82 Objective Exam Vital Signs Vital Signs Date Time Temp Pulse Resp B/P (MAP) Pulse Ox O2 Delivery O2 Flow Rate FiO2 02/05/21 08:40 Room Air 02/05/21 08:40 36.9 20 138/78 (98) 98 02/05/21 08:30 2 02/05/21 06:00 84 Capillary Refill : Less Than 3 Seconds General Appearance: No Apparent Distress, Chronically ill, Obese Respiratory: Lungs Clear, No Respiratory Distress Cardiovascular: Regular Rate, Rhythm, No Murmur Gastrointestinal: Normal Bowel Sounds, Soft Neurologic/Psychiatric: Alert, Oriented x3 Results/Procedures Lab Laboratory Tests 02/05/21 05:57 Patient resulted labs reviewed. Imaging: Reviewed Imaging Report Assessment/Plan Assessment and Plan Assess & Plan/Chief Complaint Sepsis due to pyelonephritis Proteus bacteremia left ureteral stone BPH Discussed with urology will keep NPO in case he needs emergent procedure, plan for stent tomorrow Continue IV abx Await cultures Tylenol for fevers, try to avoid NSAIDs due to CKD Continue home finasteride Flomax added S/p stent on 02/04 Urology consulted, appreciate recs CKD Stage 3b Appears at baseline from 2 years ago Trend OA Continue home Lortab DVT ppx: Lovenox held for procedure, SCDs Diagnosis/Problems Diagnosis/Problems (1) Sepsis Status: Acute Qualifiers: Sepsis type: sepsis due to unspecified organism Sepsis acute organ dysfunction status: unspecified Qualified Codes: A41.9 - Sepsis, unspecified organism (2) Ureteral calculus, left Status: Acute (3) Pyelonephritis Status: Acute AMELIA MICHEL MD Feb 05, 2021 10:05
--- NOTE | 2021-02-05 11:17 | Physical Therapy Evaluation ---
PT Evaluation-General Medical Diagnosis Admission Date Feb 03, 2021 at 23:40 Medical Diagnosis: sepsis/UTI/L uretral stone Onset Date: Feb 03, 2021 Therapy Diagnosis Therapy Diagnosis: generalized weakness/debility Height/Weight Height (Feet): 5 Height (Inches): 7.00 Weight (Pounds): 325 Weight (Ounces): 6.0 Precautions Precautions/Isolations: Fall Prevention, Standard Precautions Referral Physician: Larissa Reason for Referral: Evaluation/Treatment Medical History Pertinent Medical History: HTN, OA Additional Medical History morbid obesity Current History ER secondary to fever, chills and body aches Reviewed History: Yes Social History Home: Single Level Current Living Status: Alone Prior Prior Level of Function SCALE: Activities may be completed with or without assistive devices. 0-Xgjvgldrsw-vtrpzas completes the activity by him/herself with no assistance from a helper. 5-Set-up or Clean-up Assistance-helper sets up or cleans up; patient completes activity. [place] assists only prior to or following the activity. 4-Supervision or Touching Assistance-helper provides verbal cues and/or touching/steadying and/or contact guard assistance as patient completes activity. Assistance may be provided throughout the activity or intermittently. 3-Partial/Moderate Assistance-helper does LESS THAN HALF the effort. [place] lifts, holds or supports trunk or limbs, but provides less than half the effort. 2-Substantial/Maximal Assistance-helper does MORE THAN HALF the effort. [place] lifts or holds trunk or limbs and provides more than half the effort. 4-Qcypaokxx-nxgfrk does ALL the effort. Patient does none of the effort to complete the activity. Or, the assistance of 2 or more helpers is required for the patient to complete the activity. If activity was not attempted, code reason: 7-Patient Refused. 9-Not Applicable-not attempted and the patient did not perform the activity before the current illness, exacerbation or injury. 10-Not Attempted due to Environmental Limitations-(lack of equipment, weather restraints, etc.). 88-Not Attempted due to Medical Conditions or Safety Concerns. Bed Mobility: 6 Transfers (B,C,W/C): 6 Gait: 6 Indoor Mobility (Ambulation): Independent Prior Devices Use: Other-see list below Prior Device Use: cane PT Evaluation-Current Subjective Patient agrees to PT. No c/o. Objective Patient Orientation: Normal For Age Attachments: Oxygen, IV ROM/Strength ROM Lower Extremities bilateral LE WFL Strength Lower Extremities 3+/5 grossly bilateral LE Integumentary/Posture Bowel Incontinence: No Bladder Incontinence: No Posture WFL Neuromuscular (Tone, Coordination, Reflexes) grossly intact Sensory Vision: Functional Hearing: Functional Transfers Lying to Sitting/Side of Bed(Q: 4 Sit to Stand (QC): 4 Chair/Het-bl-Abbkq Xfer(QC): 4 SBA for safety Gait Does the Patient Walk?: Yes Mode of Locomotion: Walk Anticipated Mode of Locomotion: Walk Walk 10 feet (QC): 4 (SBA) Walk 50 ft with 2 Turns(QC): 88 Walk 150 ft (QC): 88 Distance: 15' Gait Assistive Device: Cane Single Point Comments/Gait Description will utilize FWW for distance due to weakness (shuffle gait sequence) Balance Sitting Static: Normal Sitting Dynamic: Normal Standing Static: Fair Standing Dynamic: Fair Assessment/Needs 70 y.o. male, will benefit from skilled PT to address functional strength and mobility to improve current LOF to ensure safe return to home at maximum LOF. Rehab Potential: Fair PT Arcade Technician Goals Arcade Technician Goals PT Arcade Technician Goals Time Frame: Feb 16, 2021 Roll Left & Right (QC): 6 Sit to Lying (QC): 6 Lying-Sitting on Side/Bed(QC): 6 Sit to Stand (QC): 6 Chair/Pul-og-Rnqav Xfer(QC): 6 Toilet Transfer (QC): 6 Does the Patient Walk: Yes Walk 10 feet (QC): 6 Walk 50ft with 2 Turns (QC): 6 Walk 150 ft (QC): 6 PT Plan Problem List Problem List: Activity Tolerance, Functional Strength, Balance, Gait Treatment/Plan Treatment Plan: Continue Plan of Care Treatment Plan: Bed Mobility, Education, Functional Activity Corrine, Functional Strength, Gait, Safety, Therapeutic Exercise, Transfers Treatment Duration: Feb 16, 2021 Frequency: 6 times per week Estimated Hrs Per Day: .25 hour per day Patient and/or Family Agrees t: Yes Time/GCodes Time In: 952 Time Out: 1003 Total Billed Treatment Time: 11 Total Billed Treatment 1 visit EVModC 11 min DAVID PURDY PT Feb 05, 2021 11:17
--- NOTE | 2021-02-05 11:51 | Occupational Therapy Eval ---
OT Evaluation-General/PLF Medical Diagnosis Admission Date Feb 03, 2021 at 23:40 Medical Diagnosis: sepsis/UTI/L uretral stone Onset Date: Feb 03, 2021 Therapy Diagnosis Therapy Diagnosis: Decreaded ADL status, weakness Height/Weight Height (Feet): 5 Height (Inches): 7.00 Weight (Pounds): 325 Weight (Ounces): 6.0 Precautions Precautions/Isolations: Fall Prevention, Standard Precautions Referral Physician: Larissa Referral Reason: Evaluation/Treatment Medical History Pertinent Medical History: HTN, OA Additional Medical History morbid obesity Current History ER secondary to fever, chills and body aches Social History Home: Single Level Current Living Status: Alone ADL-Prior Level of Function SCALE: Activities may be completed with or without assistive devices. 6-Eguwgtqnzb-fooebcb completes the activity by him/herself with no assistance from a helper. 5-Set-up or Clean-up Assistance-helper sets up or cleans up; patient completes activity. [place] assists only prior to or following the activity. 4-Supervision or Touching Assistance-helper provides verbal cues and/or touching/steadying and/or contact guard assistance as patient completes activity. Assistance may be provided throughout the activity or intermittently. 3-Partial/Moderate Assistance-helper does LESS THAN HALF the effort. [place] lifts, holds or supports trunk or limbs, but provides less than half the effort. 2-Substantial/Maximal Assistance-helper does MORE THAN HALF the effort. [place] lifts or holds trunk or limbs and provides more than half the effort. 3-Hncoxcill-wvvuzw does ALL the effort. Patient does none of the effort to complete the activity. Or, the assistance of 2 or more helpers is required for the patient to complete the activity. If activity was not attempted, code reason: 7-Patient Refused. 9-Not Applicable-not attempted and the patient did not perform the activity before the current illness, exacerbation or injury. 10-Not Attempted due to Environmental Limitations-(lack of equipment, weather restraints, etc.). 88-Not Attempted due to Medical Conditions or Safety Concerns. ADL PLOF Comments Pt reports being IND with all ADLs and functional mobility at PLOF, completes his own yard work, cooking and cleaning. he works a few days a week Self Care: Independent Functional Cognition: Independent DME/Equipment: Tub/Shower DME/Equipment Comments cane OT Current Status Subjective Pt seated upright in recliner, agreeable to OT tx. Mental Status/Objective Patient Orientation: Person, Place, Time, Situation Attachments: IV, Telemetry Current Glasses/Contacts: Yes Hearing Aids: No Dentures/Partials: No Hand Dominance: Right Upper Extremity ROM WFL Upper Extremity Coordination WFL Upper Extremity Sensation WFL, pt reports carpal tunnel in LUE based on how much he uses hand ADL-Treatment Eating (QC): 6 (Pt reports able to open container and use spoon to eat pudding.) Oral Hygiene (QC): 5 (set up assistance.) Other Treatments Pt seated in recliner, agreeable to OT Tx. OT educated pt on purpose and benefit of OT, he verbalized understanding. Pt provided information about PLOF and home set up, and participated in UE screen. Pt required set up assistance with oral care and face washing, reports IND with eating pudding. Per PT, pt requires SBA with transfers, ambulating 15' using SPC. post tx, pt seated in recliner, call light in reach and all needs met. Education OT Patient Education: Correct positioning, Modified ADL techniques, Progress toward Goal/Update tx plan, Purpose of tx/functional activities Teaching Recipient: Patient Teaching Methods: Discussion Response to Teaching: Verbalize Understanding OT Longterm Goals Longterm Goals Time Frame: Feb 15, 2021 Eating (QC): 6 Oral Hygiene (QC): 6 Toileting Hygiene (QC): 6 Shower/Bathe Self (QC): 6 Upper Body Dressing (QC): 6 Lower Body Dressing (QC): 6 On/Off Footwear (QC): 6 Additional Goals: 1-Demonstrate ADL Tasks, 2-Verbalize Understanding, 3- ImproveStrength/Corrine 1=Demonstrate adherence to instructed precautions during ADL tasks. 2=Patient will verbalize/demonstrate understanding of assistive devices/modifications for ADL. 3=Patient will improve strength/tolerance for activity to enable patient to perform ADL's. OT Education/Plan Problem List/Assessment Assessment: Decreased Activ Tolerance, Decreased UE Strength, Impaired I ADL's, Impaired Self-Care Skills Discharge Recommendations Plan/Recommendations: Continue POC Treatment Plan/Plan of Care Patient would benefit from OT for education, treatment and training to promote independence in ADL's, mobility, safety and/or upper extremity function for ADL's. Plan of Care: ADL Retraining, Functional Mobility, UE Funct Exercise/Act Treatment Duration: Feb 15, 2021 Frequency: 5 times per week Estimated Hrs Per Day: .25 hour per day Rehab Potential: Fair Time/GCodes Start Time: 11:25 Stop Time: 11:35 Total Time Billed (hr/min): 10 Billed Treatment Time 1, VICENTE MISHRA OT Feb 05, 2021 11:51
--- NOTE | 2021-02-05 12:56 | OPERATIVE REPORT ---
DATE OF SERVICE: 02/05/2021 PREOPERATIVE DIAGNOSIS: Left proximal ureteral and renal stones. POSTOPERATIVE DIAGNOSIS: Left proximal ureteral and renal stones. OPERATION PERFORMED: Cystoscopy, left ureteral stone manipulation and insertion of stent. SURGEON: Landon Patel MD ANESTHESIA: General. COMPLICATIONS: None. DESCRIPTION OF PROCEDURE: Under satisfactory general anesthesia, the patient in lithotomy position, genitalia were prepped and draped in the usual sterile fashion. Cystoscopy was performed after dilating the submeatal stenosis easily. Rest of the urethra was normal, no strictures. The prostate was not enlarged. Bladder neck was open. The bladder was inspected and was normal. Using the foroblique lens, I passed a ureteral catheter into the left ureteral orifice all the way up to the stone guided fluoroscopically. I flushed it with saline back into the kidney, removed the catheter, I inserted a 6-Faroese 26 cm double-J stent all the way up to the kidney. Guided again fluoroscopically. The guidewire was removed and the stent was seen draining nicely proximally and fluoroscopically and distally endoscopically. Bladder was evacuated. The cystoscope was removed. The patient tolerated the procedure and anesthesia well and was sent to recovery room in stable condition. PLAN: We will treat his infection. We will dismiss him tomorrow on antibiotics, off the aspirin. Follow up at the office. We will set him up for ESWL in 2 weeks when the machine is here. Job ID: [id number] DocumentID: [id number] Dictated Date: 02/05/2021 07:59:51 [employer] Date: 02/05/2021 12:55:38 Dictated By: LANDON PATEL MD
[2021-02-05] MEDS: TAMSULOSIN 0.4 MG (FLOMAX) CAP PO SCH (17:26)
[2021-02-05] MEDS: HYDROcodone/APAP 5 MG/325 MG (LORTAB) TAB PO PRN (17:26)
[2021-02-06] VITALS (7 sets, daily range): BP systolic 116–165; BP diastolic 58–88
[2021-02-06] MEDS: CEFEPIME INJECTION 1,000 MG in WATER (STERILE) FOR INJECTION 10 ML IV SCH ×2 (00:57→08:33)
[2021-02-06 05:55] LABS: POTASSIUM 3.7 MMOL/L (3.6-5.0)
[2021-02-06 05:56] LABS: CALCIUM 8.7 MG/DL (8.5-10.1)
[2021-02-06] MEDS: KCL 20 MEQ TAB (K-DUR) PO SCH (05:57)
[2021-02-06] MEDS: POTASSIUM CL 10MEQ/50ML IVPB 50 ML IV SCH (05:57)
[2021-02-06 06:00] LABS: CREATININE SERUM 1.8 MG/DL (0.60-1.30); PHOSPHORUS 2.6 MG/DL (2.3-4.7)
[2021-02-06 06:03] LABS: MAGNESIUM 1.7 MG/DL (1.6-2.4)
[2021-02-06] MEDS: MAGNESIUM 1 GM/100 ML IVPB 100 ML IV SCH (06:10)
--- NOTE | 2021-02-06 07:16 | Diagnostic Imaging Report ---
INDICATION: Kidney stones. Renal ureteral stent placement Multiple supine and upright views of the abdomen shows a left-sided ureteral stent present. No ureteral stones are evident. There are 3 stones in the lower pole of the left kidney measuring 5-6 mm. No stones on the right are seen. The bowel gas pattern is within normal limits. IMPRESSION: Left ureteral stent is present. There are 3 stones in the lower pole of the left kidney. Dictated by: Dictated on workstation # [id number]
[2021-02-06] MEDS: FINASTERIDE (PROSCAR) 5 MG TAB PO SCH (08:34)
--- NOTE | 2021-02-06 09:47 | Physical Therapy Daily Note ---
PT Daily Note-Current Subjective Patient in bed pre tx, agrees to PT, has pain in his knees and wrists, says pain is "pretty raw". Appearance Patient in recliner post tx with nurse call, phone, tray, all needs met. Mental Status Patient Orientation: Person, Place, Situation Transfers SCALE: Activities may be completed with or without assistive devices. 7-Bvikagnshe-uzvxfgv completes the activity by him/herself with no assistance from a helper. 5-Set-up or Clean-up Assistance-helper sets up or cleans up; patient completes activity. [place] assists only prior to or following the activity. 4-Supervision or Touching Assistance-helper provides verbal cues and/or touching/steadying and/or contact guard assistance as patient completes activity. Assistance may be provided throughout the activity or intermittently. 3-Partial/Moderate Assistance-helper does LESS THAN HALF the effort. [place] lifts, holds or supports trunk or limbs, but provides less than half the effort. 2-Substantial/Maximal Assistance-helper does MORE THAN HALF the effort. [place] lifts or holds trunk or limbs and provides more than half the effort. 3-Dvsgwbcxv-pbopee does ALL the effort. Patient does none of the effort to complete the activity. Or, the assistance of 2 or more helpers is required for the patient to complete the activity. If activity was not attempted, code reason: 7-Patient Refused. 9-Not Applicable-not attempted and the patient did not perform the activity before the current illness, exacerbation or injury. 10-Not Attempted due to Environmental Limitations-(lack of equipment, weather restraints, etc.). 88-Not Attempted due to Medical Conditions or Safety Concerns. Roll Left & Right (QC): 6 Lying to Sitting/Side of Bed(Q: 6 Sit to Stand (QC): 4 Chair/Iyd-xl-Xicli Xfer(QC): 4 Patient has some difficulty with supine to sit and sit to stand but can do it without assist. Gait Training Distance: 30' Walk 10 feet (QC): 4 Gait Persons Needed: 1 Gait Assistive Device: FWW slow, antalgic ambulation but steady Exercises Seated Therapy Exercises: Ankle pumps, Long arc quads Seated Reps: 20 Treatments bed mobility and transfers, ambulation, LE strengthening Assessment Current Status: Fair Progress improved distance of ambulation PT Snf Goals Snf Goals PT Pulp Beater Goals Time Frame: Feb 16, 2021 Roll Left & Right (QC): 6 Sit to Lying (QC): 6 Lying-Sitting on Side/Bed(QC): 6 Sit to Stand (QC): 6 Chair/Upk-yh-Nhojv Xfer(QC): 6 Toilet Transfer (QC): 6 Does the Patient Walk: Yes Walk 10 feet (QC): 6 Walk 50ft with 2 Turns (QC): 6 Walk 150 ft (QC): 6 PT Plan Problem List Problem List: Activity Tolerance, Functional Strength, Safety, Balance, Gait, Transfer, Bed Mobility, ROM Treatment/Plan Treatment Plan: Continue Plan of Care Treatment Plan: Bed Mobility, Education, Functional Activity Corrine, Functional Strength, Gait, Safety, Therapeutic Exercise, Transfers Treatment Duration: Feb 16, 2021 Frequency: 6 times per week Estimated Hrs Per Day: .25 hour per day Patient and/or Family Agrees t: Yes Safety Risks/Education Patient Education: Gait Training, Transfer Techniques, Correct Positioning, Safety Issues Teaching Recipient: Patient Teaching Methods: Demonstration, Discussion Response to Teaching: Reinforcement Needed Time/GCodes Time In: 925 Time Out: 936 Total Billed Treatment Time: 11 Total Billed Treatment 1 visit FA 11' OTIS JACKSON PT Feb 06, 2021 09:47
--- NOTE | 2021-02-06 10:32 | Anesthesia-General Post-Op ---
General Patient Condition Mental Status/LOC: Same as Preop Cardiovascular: Satisfactory Nausea/Vomiting: Absent Respiratory: Satisfactory Pain: Controlled Complications: Absent Post Op Complications Complications None Follow Up Care/Instructions Patient Instructions None needed. Anesthesia/Patient Condition Patient Condition Patient is doing well, no complaints, stable vital signs, no apparent adverse anesthesia problems. No complications reported per nursing. BRYNN BLANK CRNA Feb 06, 2021 10:32
--- NOTE | 2021-02-06 10:51 | Occupational Ther Daily Note ---
OT Current Status-Daily Note Subjective Pt seated in recliner, agreeable to OT tx. Mental Status/Objective Patient Orientation: Normal For Age ADL-Treatment Therapy Code Descriptions/Definitions Functional [place] Measure: 0=Not Assessed/NA 4=Minimal Assistance 1=Total Assistance 5=Supervision or Setup 2=Maximal Assistance 6=Modified [place] 3=Moderate Assistance 7=Complete IndependenceSCALE: Activities may be completed with or without assistive devices. 4-Emeoygmtgq-osmogmj completes the activity by him/herself with no assistance from a helper. 5-Set-up or Clean-up Assistance-helper sets up or cleans up; patient completes activity. [place] assists only prior to or following the activity. 4-Supervision or Touching Assistance-helper provides verbal cues and/or touching/steadying and/or contact guard assistance as patient completes activity. Assistance may be provided throughout the activity or intermittently. 3-Partial/Moderate Assistance-helper does LESS THAN HALF the effort. [place] lifts, holds or supports trunk or limbs, but provides less than half the effort. 2-Substantial/Maximal Assistance-helper does MORE THAN HALF the effort. [place] lifts or holds trunk or limbs and provides more than half the effort. 8-Qboybuicd-fmkudc does ALL the effort. Patient does none of the effort to complete the activity. Or, the assistance of 2 or more helpers is required for the patient to complete the activity. If activity was not attempted, code reason: 7-Patient Refused. 9-Not Applicable-not attempted and the patient did not perform the activity before the current illness, exacerbation or injury. 10-Not Attempted due to Environmental Limitations-(lack of equipment, weather restraints, etc.). 88-Not Attempted due to Medical Conditions or Safety Concerns. Eating (QC): 6 (per pt report) Oral Hygiene (QC): 5 Toileting Hygiene (QC): 5 (OT emptied urinal) Other Treatment Pt seated in recliner, agreeable to OT Tx. Pt combed his hair, brushed his teeth, and washed his face after set up assistance. Pt indicates he has no concerns with his ability to complete ADLs upon returning home. Pt pleasantly declines UE exercise or further ADLs. Post tx, pt seated in recliner, call light in reach and all needs met. Education OT Patient Education: Correct positioning, Modified ADL techniques, Progress toward Goal/Update tx plan, Purpose of tx/functional activities, Rehab process Teaching Recipient: Patient Teaching Methods: Discussion Response to Teaching: Verbalize Understanding OT Detention Goals Encephalographer Goals Time Frame: Feb 15, 2021 Eating (QC): 6 Oral Hygiene (QC): 6 Toileting Hygiene (QC): 6 Shower/Bathe Self (QC): 6 Upper Body Dressing (QC): 6 Lower Body Dressing (QC): 6 On/Off Footwear (QC): 6 Additional Goals: 1-Demonstrate ADL Tasks, 2-Verbalize Understanding, 3- ImproveStrength/Corrine 1=Demonstrate adherence to instructed precautions during ADL tasks. 2=Patient will verbalize/demonstrate understanding of assistive devices/modifications for ADL. 3=Patient will improve strength/tolerance for activity to enable patient to perform ADL's. OT Education/Plan Problem List/Assessment Assessment: Decreased Activ Tolerance, Decreased UE Strength, Impaired I ADL's, Impaired Self-Care Skills Discharge Recommendations Plan/Recommendations: Continue POC Treatment Plan/Plan of Care Patient would benefit from OT for education, treatment and training to promote independence in ADL's, mobility, safety and/or upper extremity function for ADL's. Plan of Care: ADL Retraining, Functional Mobility, UE Funct Exercise/Act Treatment Duration: Feb 15, 2021 Frequency: 5 times per week Estimated Hrs Per Day: .25 hour per day Rehab Potential: Fair Time/GCodes Start Time: 10:25 Stop Time: 10:38 Total Time Billed (hr/min): 13 Billed Treatment Time 1, ADL VICENTE ONEIL OT Feb 06, 2021 10:51
--- NOTE | 2021-02-06 12:32 | Progress Note - Hospitalist ---
Subjective HPI/CC On Admission Date Seen by Provider: Feb 06, 2021 Time Seen by Provider: 12:23 Pt is a 70yoCM with a PMH of kidney stones who presented to the ER due to fever, weakness, and dehydration. He reports he has not been feeling well for a few days. His brother checked on him twice yesterday and thought he was getting wor se so brought him in for evaluation. Pt reports back and groin pain similar to his previous kidney stones. He was found to have a UTI with an obstructing left ureteral stone. On arrival his BP was somewhat low so he was admitted to the ICU. He reports feeling better today but still not well. He is shivering and feels like he has a fever. He did have some SOB and has not been COVID vaccinated. COVID swab here was negative. Subjective/Events-last exam Pt reports doing better today. Discussed need to work on strength as he reports he's only at 50% of his baseline. We did discuss IRU but he seems hesitant to this. He then states he's not as strong because he's not on his hoem meds. We reviewed his home meds together and discussed rational for any medications being held including his phentermine. He is also concerned about "racking up a bill" here and would like to get home in the next day or two. Focused Exam Lactate Level 02/03/21 20:46: Lactic Acid Level 1.82 Objective Exam Vital Signs Vital Signs Date Time Temp Pulse Resp B/P (MAP) Pulse Ox O2 Delivery O2 Flow Rate FiO2 02/06/21 12:00 36.4 76 18 136/75 (95) 94 Room Air 02/05/21 08:30 2 Capillary Refill : Less Than 3 Seconds General Appearance: No Apparent Distress, Chronically ill, Obese Cardiovascular: Regular Rate, Rhythm, No Murmur Gastrointestinal: Normal Bowel Sounds, Soft Neurologic/Psychiatric: Alert, Oriented x3, Normal Mood/Affect Results/Procedures Lab Laboratory Tests 02/06/21 05:35 Patient resulted labs reviewed. Imaging: Reviewed Imaging Report Assessment/Plan Assessment and Plan Assess & Plan/Chief Complaint Sepsis due to pyelonephritis Proteus bacteremia left ureteral stone BPH Continue IV abx Cultures growing proteus, switch to Cefdinir per sensitivities Tylenol for fevers, try to avoid NSAIDs due to CKD Continue home finasteride Flomax added as well S/p stent on 02/04 Urology consulted, appreciate recs CKD Stage 3b Appears at baseline from 2 years ago Trend OA Continue home Lortab PT/OT Discussed IRF, does not seem interested DVT ppx: Lovenox held for procedure, SCDs Diagnosis/Problems Diagnosis/Problems (1) Sepsis Status: Acute Qualifiers: Sepsis type: sepsis due to unspecified organism Sepsis acute organ dysfunction status: unspecified Qualified Codes: A41.9 - Sepsis, unspecified organism (2) Ureteral calculus, left Status: Acute (3) Pyelonephritis Status: Acute AMELIA MICHEL MD Feb 06, 2021 12:32
[2021-02-06] MEDS ORDERED: CEFEPIME INJECTION 1,000 MG in WATER (STERILE) FOR INJECTION 10 ML IV SCH (14:00)
[2021-02-06] MEDS: TAMSULOSIN 0.4 MG (FLOMAX) CAP PO SCH (17:21)
[2021-02-06] MEDS ORDERED: TROUGH ORDER-PHARMACY XX NR (20:00)
[2021-02-06] MEDS: HYDROcodone/APAP 5 MG/325 MG (LORTAB) TAB PO PRN (20:15)
[2021-02-06] MEDS: CEFDINIR 300 MG (OMNICEF) CAP PO SCH (20:15)
[2021-02-07 04:40] VITALS: BP 134/71
[2021-02-07 05:41] LABS: POTASSIUM 3.7 MMOL/L (3.6-5.0)
[2021-02-07 05:42] LABS: CALCIUM 8.8 MG/DL (8.5-10.1)
[2021-02-07] MEDS: POTASSIUM CL 10MEQ/50ML IVPB 50 ML IV SCH (05:42)
[2021-02-07] MEDS: KCL 20 MEQ TAB (K-DUR) PO SCH (05:42)
[2021-02-07 05:46] LABS: CREATININE SERUM 1.7 MG/DL (0.60-1.30); PHOSPHORUS 2.7 MG/DL (2.3-4.7)
[2021-02-07 05:49] LABS: MAGNESIUM 1.8 MG/DL (1.6-2.4)
[2021-02-07] MEDS: MAGNESIUM 1 GM/100 ML IVPB 100 ML IV SCH (05:59)
[2021-02-07 08:20] VITALS: BP 120/77
[2021-02-07] MEDS: FINASTERIDE (PROSCAR) 5 MG TAB PO SCH (08:30)
[2021-02-07] MEDS: CEFDINIR 300 MG (OMNICEF) CAP PO SCH (08:30)
--- NOTE | 2021-02-07 10:35 | Physical Therapy Daily Note ---
PT Daily Note-Current Subjective Patient agrees to PT. He states he hopes to go home today. Mental Status Patient Orientation: Normal For Age Transfers SCALE: Activities may be completed with or without assistive devices. 8-Zrkhtuxkql-vqtmcij completes the activity by him/herself with no assistance from a helper. 5-Set-up or Clean-up Assistance-helper sets up or cleans up; patient completes activity. [place] assists only prior to or following the activity. 4-Supervision or Touching Assistance-helper provides verbal cues and/or touching/steadying and/or contact guard assistance as patient completes activity. Assistance may be provided throughout the activity or intermittently. 3-Partial/Moderate Assistance-helper does LESS THAN HALF the effort. [place] lifts, holds or supports trunk or limbs, but provides less than half the effort. 2-Substantial/Maximal Assistance-helper does MORE THAN HALF the effort. [place] lifts or holds trunk or limbs and provides more than half the effort. 4-Debmfcsil-kmndmc does ALL the effort. Patient does none of the effort to complete the activity. Or, the assistance of 2 or more helpers is required for the patient to complete the activity. If activity was not attempted, code reason: 7-Patient Refused. 9-Not Applicable-not attempted and the patient did not perform the activity before the current illness, exacerbation or injury. 10-Not Attempted due to Environmental Limitations-(lack of equipment, weather restraints, etc.). 88-Not Attempted due to Medical Conditions or Safety Concerns. Sit to Stand (QC): 6 Toilet Transfer (QC): 6 Gait Training Does the Patient Walk?: Yes Distance: 600' Walk 10 feet (QC): 6 Walk 50 ft with 2 Turns(QC): 6 Walk 150 ft (QC): 6 Gait Assistive Device: FWW trunk flexed posture with FWW use/1 standing recovery period due to slight fatigue. Assessment Patient requires time to complete all functional tasks. Patient is currently at [facility] with gross motor skills per his report. PT Cob Sawyer Goals Cob Sawyer Goals PT Cob Sawyer Goals Time Frame: Feb 16, 2021 Roll Left & Right (QC): 6 Sit to Lying (QC): 6 Lying-Sitting on Side/Bed(QC): 6 Sit to Stand (QC): 6 Chair/Eiq-pp-Xsnzy Xfer(QC): 6 Toilet Transfer (QC): 6 Does the Patient Walk: Yes Walk 10 feet (QC): 6 Walk 50ft with 2 Turns (QC): 6 Walk 150 ft (QC): 6 PT Plan Treatment/Plan Treatment Plan: Continue Plan of Care Treatment Plan: Bed Mobility, Education, Functional Activity Corrine, Functional Strength, Gait, Safety, Therapeutic Exercise, Transfers Treatment Duration: Feb 16, 2021 Frequency: 6 times per week Estimated Hrs Per Day: .25 hour per day Patient and/or Family Agrees t: Yes Time/GCodes Time In: 926 Time Out: 949 Total Billed Treatment Time: 23 Total Billed Treatment 1 visit FA x 2 23 min DAVID PURDY PT Feb 07, 2021 10:35
[2021-02-07] MEDS ORDERED: CEFD300C3 PO (10:37)
--- NOTE | 2021-02-07 10:39 | Discharge Inst-Simple/Standard ---
Discharge Inst-Standard Discharge Medications New, Converted or Re-Newed RX: Transmitted to Pharmacy Patient Instructions/Follow Up Plan of Care/Instructions/FU: Please continue to take your medications as written. Please follow up with your primary care doctor to follow up this hospital stay. Activity as Tolerated: Yes Discharge Diet: No Restrictions Return to The Hospital For: Chest pain, shortness of breath, confusion, weakness, fever, if you feel you are getting worse. AMELIA MICHEL MD Feb 07, 2021 10:39
--- NOTE | 2021-02-07 10:44 | Discharge Summary ---
Diagnosis/Chief Complaint Date of Admission Feb 03, 2021 at 23:40 Date of Discharge Discharge Date: Feb 07, 2021 Admission Diagnosis Sepsis due to pyelonephritis Primary Care Danny Gonzalez DO Discharge Diagnosis (1) Sepsis Status: Acute (2) Ureteral calculus, left Status: Acute (3) Pyelonephritis Status: Acute Discharge Summary Discharge Physical Exam Allergies: Coded Allergies: ampicillin (Unverified Allergy, Intermediate, HIVES, 05/05/12) Vitals & I&Os Vital Signs Date Time Temp Pulse Resp B/P (MAP) Pulse Ox O2 Delivery O2 Flow Rate FiO2 02/07/21 11:36 80 96 02/07/21 11:33 36.2 18 120/77 Room Air 02/07/21 09:00 2.00 General Appearance: No Apparent Distress, Chronically ill, Obese Respiratory: Lungs Clear, No Respiratory Distress Cardiovascular: Regular Rate, Rhythm, No Murmur Neurologic/Psychiatric: Alert, Oriented x3 Hospital Course Pt was admitted due to sepsis from pyelonephritis due to obstructive ureteral calculus. He was treated with IV abx and underwent sten placement by urology. He did well with this. He was found to be bacteremic as well from this. He was seen by PT/OT and did very well. He was originally evaluated by IRU but ultimately made a drastic recovery. He was discharged home to follow up with his PCP in the next week and with Dr Spain for definitive management of nephrolithiasis. Labs (last 24 hrs) Microbiology 02/03/21 Urine Culture - Final, Complete Proteus mirabilis 02/03/21 Blood Culture - Final, Complete Proteus mirabilis Patient resulted labs reviewed. Pending Labs Imaging: Reviewed Imaging Report Discussion & Recommendations Discharge Planning: >30 minutes discharge planning Discharge Home Medications: Active Scripts Active Cefdinir 300 Mg Capsule 300 Mg PO BID Reported Allergy Relief (Fexofenadine HCl) 180 Mg Tablet 180 Mg PO DAILY Aspirin EC (Aspirin) 81 Mg Tablet. 81 Mg PO DAILY Hydrocodone-Acetamin 7.5-325 (Hydrocodone/Acetaminophen) 1 Each Tablet 1 Each PO BID PRN Finasteride 5 Mg Tablet 5 Mg PO DAILY Singulair (Montelukast Sodium) 10 Mg Tablet 10 Mg PO DAILY Meloxicam 15 Mg Tablet 15 Mg PO DAILY Phentermine HCl 37.5 Mg Tablet 37.5 Mg PO DAILY Instructions to patient/family Please see electronic discharge instructions given to patient. Problem Qualifiers (1) Sepsis: Sepsis type: sepsis due to unspecified organism Sepsis acute organ dysfunction status: unspecified Qualified Codes: A41.9 - Sepsis, unspecified organism AMELIA MICHEL MD Feb 07, 2021 10:44
--- NOTE | 2021-02-07 11:11 | Occ Therapy Progress Note ---
Therapy Progress Note Pt seated in recliner in the process of getting dressed. Pt indicates he is at his PLOF, IND with ADLs, and he has no concerns with returning home. Pt getting dressed independently, and per PT report ambulating 600' with FWW IND. Pt indicates he is discharging on this date. No further skilled OT services indicated at this time, as pt is IND with ADLs and at PLOF. D/C from OT. 1, visit 1105 VICENTE ONEIL OT Feb 07, 2021 11:11
[2021-02-07 11:33] VITALS: BP 120/77
== END 2021-02-07 11:47 | disposition home or self-care (01) | DRG 854 ==
LOC: EDUNIT# 20:21 → ER 20:22 → ICU 23:40 → 4TH 02-05 12:16
PROVIDERS: ADMIT Internal Medicine; ATTEND Internal Medicine
PROC: 0T778DZ Dilation of Left Ureter with Intraluminal Device, Via Natural or Artificial Opening Endoscopic (ICD-10-PCS; 2021-02-05)
PROC: 0TF78ZZ Fragmentation in Left Ureter, Via Natural or Artificial Opening Endoscopic (ICD-10-PCS; principal; 2021-02-05 07:20)
DX: A41.89 Other specified sepsis (principal); N20.2 Calculus of kidney with calculus of ureter; Z68.42 Body mass index [BMI] 45.0-49.9, adult; N39.0 Urinary tract infection, site not specified; N40.0 Benign prostatic hyperplasia without lower urinary tract symptoms; M19.90 Unspecified osteoarthritis, unspecified site; Z20.822 Contact with and (suspected) exposure to COVID-19; E66.01 Morbid (severe) obesity due to excess calories; I12.9 Hypertensive chronic kidney disease with stage 1 through stage 4 chronic kidney disease, or unspecified chronic kidney disease; N18.32 Chronic kidney disease, stage 3b; Z79.82 Long term (current) use of aspirin; Z79.899 Other long term (current) drug therapy; Z87.891 Personal history of nicotine dependence
CPT/HCPCS: 36415; 71045; 74018; 74019; 74176; 76000; 80048; 80053; 81000; 82805; 83605; 83735; 83880; 84100; 85007; 85025; 85027; 85610; 85730; 87040; 87077; 87088; 87186; 87636; 96365; 96375

== ENCOUNTER 2021-02-14 06:43 | Outpatient (CLI) | payer MEDICARE ==
[~2021-02-14 06:43] MED LIST changes: +ASPI-1238 PO; +CEFD300C3 PO; +FEXO-14 PO; +FEXO-222 PO; +FINA5TAB6 PO; +HYDR-3817 PO
[2021-02-19] MEDS ORDERED: PHEN-483 PO (10:14)
== END 2021-02-18 15:37 | disposition home or self-care (01) ==
LOC: PREOP 06:43
PROVIDERS: ATTEND Urology
DX: Z01.818 Encounter for other preprocedural examination (principal)

== ENCOUNTER 2021-02-18 20:16 | Inpatient (IN) | payer MEDICARE ==
[~2021-02-18] VITALS: Ht 157 cm; Wt 122.8 kg
[2021-02-18] MEDS ORDERED: LACTATED RINGERS 1,000 ML IV SCH ×2 (20:30→22:00)
[2021-02-18 20:40] LABS: BASOPHILS # (AUTO) 0.1 10^3/uL (0.0-0.1); BASOPHILS % (AUTO) 1 % (0-10); EOSINOPHILS % (AUTO) 0 % (0-10); HEMATOCRIT 38 % (40-54); HEMOGLOBIN 12.3 g/dL (13.3-17.7); LYMPHOCYTES # (AUTO) 0.6 10^3/uL (1.0-4.0); LYMPHOCYTES % (AUTO) 4 % (12-44); MEAN CORPUSCULAR HEMOGLOBIN 30 pg (25-34); MEAN CORPUSCULAR HGB CONC 33 g/dL (32-36); MEAN CORPUSCULAR VOLUME 92 fL (80-99); MEAN PLATELET VOLUME 9.9 fL (9.0-12.2); MONOCYTES # (AUTO) 1.1 10^3/uL (0.0-1.0); MONOCYTES % (AUTO) 6 % (0-12); NEUTROPHILS # (AUTO) 15.6 10^3/uL (1.8-7.8); NEUTROPHILS % (AUTO) 89 % (42-75); PLATELET COUNT 263 10^3/uL (130-400); WHITE BLOOD COUNT 17.5 10^3/uL (4.3-11.0)
[2021-02-18 20:49] LABS: ALBUMIN 3.9 GM/DL (3.2-4.5); POTASSIUM 4.3 MMOL/L (3.6-5.0)
--- NOTE | 2021-02-18 20:49 | ED GU-Male ---
General Chief Complaint: Abdominal/GI Problems Stated Complaint: ABD PAIN / BODY CHILLS Source: patient Exam Limitations: no limitations History of Present Illness Date Seen by Provider: Feb 18, 2021 Time Seen by Provider: 20:47 Initial Comments To ER with abdominal pain, fever or chills. Fever up to 101 today. Not on antibiotics. He is scheduled for lithotripsy tomorrow with Dr. Spain for left ureteral stone. He Feels overall very poorly and sought care in the emergency room for this reason. He was admitted to the hospital on 02/03/2021 for sepsis secondary to Proteus mirabilis found in both urine and blood cultures. He was found to have a 7 mm stone in the proximal left ureter with left ureteral stent placed on 02/05/2021. Timing/Duration: this morning, getting worse Severity/Quality: moderate Location: other Radiation: none Activities at Onset: none Prior Genitourinary Problems: none Associated Symptoms: abdominal pain Allergies and Home Medications Allergies Coded Allergies: ampicillin (Unverified Allergy, Intermediate, HIVES, 05/05/12) Home Medications Aspirin 81 Mg Tablet.dr, 81 MG PO DAILY, (Reported) Cefdinir 300 Mg Capsule, 300 MG PO BID Prescribed by: AEMLIA MICHEL on 02/07/21 1037 Fexofenadine HCl 180 Mg Tablet, 180 MG PO DAILY, (Reported) Finasteride 5 Mg Tablet, 5 MG PO DAILY, (Reported) Hydrocodone/Acetaminophen 1 Each Tablet, 1 EACH PO BID PRN for PAIN-MODERATE (5- 7), (Reported) Meloxicam 15 Mg Tablet, 15 MG PO DAILY, (Reported) Montelukast Sodium 10 Mg Tablet, 10 MG PO DAILY, (Reported) Phentermine HCl 37.5 Mg Tablet, 37.5 MG PO DAILY, (Reported) Patient Home Medication List Home Medication List Reviewed: Yes Review of Systems Review of Systems Constitutional: see HPI, chills, fever, malaise, weakness EENTM: see HPI Respiratory: no symptoms reported Cardiovascular: no symptoms reported Genitourinary: no symptoms reported Musculoskeletal: no symptoms reported Skin: no symptoms reported Psychiatric/Neurological: No Symptoms Reported Endocrine: No Symptoms Reported Hematologic/Lymphatic: No Symptoms Reported Past Ttydnya-Rfdoyp-Jlizxw Hx Patient Social History Tobacco Use?: No Substance use?: No Seasonal Allergies Seasonal Allergies: No Past Medical History Surgeries: Yes (RENAL STONE REMOVAL X 3; RIGHT KNEE ARTHROSCOPY) Orthopedic, Renal Respiratory: Yes (cpap) Sleep Apnea Currently Using CPAP: Yes Currently Using BIPAP: No Cardiac: Yes Chronic Edema/Swelling Neurological: No Reproductive Disorders: No Genitourinary: Yes Benign Prostatic Hyperpl, Kidney Stones Gastrointestinal: No Musculoskeletal: Yes Arthritis Endocrine: Yes (MORBID OBESITY) HEENT: No Cancer: No Psychosocial: No Integumentary: No Blood Disorders: No Family Medical History No Pertinent Family Hx Physical Exam Vital Signs Vital Signs - First Documented 02/18/21 20:23 Temp 36.4 Pulse 105 Resp 18 B/P (MAP) 133/67 (89) Pulse Ox 99 O2 Delivery Room Air Capillary Refill : Height, Weight, BMI Height: 5'7.00" Weight: 325lbs. 6.0oz. 147.648267al; 45.95 BMI Method:Stated General Appearance: WD/WN, no apparent distress, obese, other (Tachycardic at 107. Blood pressure 117/65.) HEENT: PERRL/EOMI, normal ENT inspection Cardiovascular: No JVD; tachycardia Respiratory: no respiratory distress, no accessory muscle use Gastrointestinal: normal bowel sounds, non tender Extremities: normal range of motion, non-tender Neurologic/Psychiatric: alert, normal mood/affect, oriented x 3 Skin: normal color, warm/dry Focused Exam Lactate Level 02/18/21 20:08: Lactic Acid Level 1.81 Lactic Acid Level Laboratory Tests Test 02/18/21 20:08 Lactic Acid Level 1.81 MMOL/L (0.50-2.00) Progress/Results/Core Measures Suspected Sepsis SIRS Temperature: Pulse: Respiratory Rate: Laboratory Tests 02/18/21 20:08: White Blood Count 17.5H Blood Pressure / Mean: 02/18/21 20:08: Lactic Acid Level 1.81 Laboratory Tests 02/18/21 20:08: Creatinine 2.11H, INR Comment 1.1, Platelet Count 263, Total Bilirubin 1.2H Results/Orders Lab Results Laboratory Tests Test 02/18/21 20:08 02/18/21 21:49 Range/Units White Blood Count 17.5 H 4.3-11.0 10^3/uL Red Blood Count 4.09 L 4.30-5.52 10^6/uL Hemoglobin 12.3 L 13.3-17.7 g/dL Hematocrit 38 L 40-54 % Mean Corpuscular Volume 92 80-99 fL Mean Corpuscular Hemoglobin 30 25-34 pg Mean Corpuscular Hemoglobin Concent 33 32-36 g/dL Red Cell Distribution Width 14.4 10.0-14.5 % Platelet Count 263 130-400 10^3/uL Mean Platelet Volume 9.9 9.0-12.2 fL Immature Granulocyte % (Auto) 1 % Neutrophils (%) (Auto) 89 H 42-75 % Lymphocytes (%) (Auto) 4 L 12-44 % Monocytes (%) (Auto) 6 0-12 % Eosinophils (%) (Auto) 0 0-10 % Basophils (%) (Auto) 1 0-10 % Neutrophils # (Auto) 15.6 H 1.8-7.8 10^3/uL Lymphocytes # (Auto) 0.6 L 1.0-4.0 10^3/uL Monocytes # (Auto) 1.1 H 0.0-1.0 10^3/uL Eosinophils # (Auto) 0.0 0.0-0.3 10^3/uL Basophils # (Auto) 0.1 0.0-0.1 10^3/uL Immature Granulocyte # (Auto) 0.1 0.0-0.1 10^3/uL Neutrophils % (Manual) 90 % Lymphocytes % (Manual) 4 % Monocytes % (Manual) 6 % Blood Morphology Comment NORMAL Prothrombin Time 14.7 12.2-14.7 SEC INR Comment 1.1 0.8-1.4 Activated Partial Thromboplast Time 39 H 24-35 SEC Sodium Level 139 135-145 MMOL/L Potassium Level 4.3 3.6-5.0 MMOL/L Chloride Level 103 98-107 MMOL/L Carbon Dioxide Level 21 21-32 MMOL/L Anion Gap 15 H 5-14 MMOL/L Blood Urea Nitrogen 23 H 7-18 MG/DL Creatinine 2.11 H 0.60-1.30 MG/DL Estimat Glomerular Filtration Rate 31 BUN/Creatinine Ratio 11 Glucose Level 119 H 70-105 MG/DL Lactic Acid Level 1.81 0.50-2.00 MMOL/L Calcium Level 9.7 8.5-10.1 MG/DL Corrected Calcium 9.8 8.5-10.1 MG/DL Total Bilirubin 1.2 H 0.1-1.0 MG/DL Aspartate Amino Transf (AST/SGOT) 18 5-34 U/L Alanine Aminotransferase (ALT/SGPT) 10 0-55 U/L Alkaline Phosphatase 100 40-136 U/L Total Protein 8.4 H 6.4-8.2 GM/DL Albumin 3.9 3.2-4.5 GM/DL My Orders Orders - DISHA PINEDA SCALES INSPECTOR Cbc With Automated Diff (02/18/21 20:25) Comprehensive Metabolic Panel (02/18/21 20:25) Blood Culture (02/18/21 20:25) Sputum Culture (02/18/21 20:25) Urinalysis (02/18/21 20:25) Urine Culture (02/18/21 20:25) Protime With Inr (02/18/21 20:25) Partial Thromboplastin Time (02/18/21 20:25) Chest 1 View, Ap/Pa Only (02/18/21 20:25) Ed Iv/Invasive Line Start (02/18/21 20:25) Ed Iv/Invasive Line Start (02/18/21 20:25) Vital Signs Adult Sepsis Patie Q15M (02/18/21 20:25) O2 (02/18/21 20:25) Remove Rings In Anticipation O (02/18/21 20:25) Lactic Acid Analyzer (02/18/21 20:25) Lactated Ringers (Lr 1000 Ml Iv Solution (02/18/21 20:30) Abdomen/Kub 1view (02/18/21 20:25) Manual Differential (02/18/21 20:08) Fentanyl Inj (Sublimaze Injection) (02/18/21 21:30) Lactated Ringers (Lr 1000 Ml Iv Solution (02/18/21 22:00) Cefepime Injection (Maxipime Injection) (02/18/21 22:00) Covid 19 Inhouse Test (02/18/21 21:59) Medications Given in ED Current Medications Medications Dose Ordered Sig/Bar Route Start Time Stop Time Status Last Admin Dose Admin Cefepime HCl 1000 mg/Sterile Water 10 ml @ 200 mls/hr ONCE ONCE IV 02/18/21 22:00 02/18/21 22:02 DC 02/18/21 22:07 200 MLS/HR Fentanyl Citrate 50 mcg ONCE ONCE IVP 02/18/21 21:30 02/18/21 21:31 DC 02/18/21 21:31 50 MCG Vital Signs/I&O 02/18/21 02/18/21 02/18/21 20:23 20:28 20:35 Temp 36.4 36.4 Pulse 105 105 Resp 18 18 B/P (MAP) 133/67 (89) 133/67 Pulse Ox 99 98 98 O2 Delivery Room Air Room Air Room Air Capillary Refill : Diagnostic Imaging Diagonstic Imaging: Xray Departure Communication (Admissions) NAME: CHRISTINA SILVEIRA [facility] REC#: [id number] PT STATUS: REG ER : 1950 PHYSICIAN: DISHA PINEDA APRN ADMIT DATE: 02/18/21/ER Draft Date of Exam:02/18/21 CHEST 1 VIEW, AP/PA ONLY Clinical indications: Patient with diffuse abdominal pain and back pain x4-5 days and sepsis. Exam: Portable chest x-ray upright view. Comparisons: Chest x-ray dated 02/04/2021. Findings: There is mild bibasilar atelectasis. There is slight increased airspace opacities bilaterally which may be related to atelectasis, but superimposed infiltrates cannot be completely excluded. There is no pleural effusion or pneumothorax. Pulmonary vasculature and cardiac silhouette are within normal limits. There are degenerative spurs involving the thoracic spine. IMPRESSION: There is mild airspace opacities involving both lungs which may represent atelectasis, but superimposed infiltrates cannot be completely excluded. Dictated on workstation # [id number] Dict: 02/18/212137 Trans: 02/18/212156 [facility] [id number] Interpreted by: TODD VAGN MD Electronically signed by: NAME: CHRISTINA SILVEIRA MED REC#: [id number] PT STATUS: REG ER : 1950 PHYSICIAN: DISHA PINEDA APRN ADMIT DATE: 02/18/21/ER Draft Date of Exam:02/18/21 ABDOMEN/KUB 1VIEW Clinical indications: Patient with sepsis. Exam: KUB x-ray. Comparison: X-ray of the abdomen dated 02/04/2021. Findings and impression: 1: There are 3 calcifications overlying the expected region of the left kidney. Left double-J ureteral stent has been placed in the interim. There are no definite stones along the pathway of the left ureter or overlying the region of the bladder. 2: There is no intestinal obstruction seen. 3: There are degenerative spurs involving the thoracic spine and both hips. Dictated on workstation # [id number] Dict: 02/18/212138 Trans: 02/18/212157 [facility] [id number] Interpreted by: TODD VANG MD Electronically signed by: [id number] is receiving his second liter of IV fluids. His heart rate has fallen to 101 blood pressure 119/78. Oxygen 95% room air. Because of the x-ray findings of his chest I did order a Covid swab. Cefepime is infusing now. Will admit to cardiac stepdown floor. Impression Primary Impression: Pyelonephritis Additional Impression: Sepsis Disposition: ADMITTED INPATIENT Condition: Stable Admissions Decision to Admit Reason: Admit from ER (General) Decision to Admit/Date: Feb 18, 2021 Time/Decision to Admit Time: 20:49 Departure-Patient Inst. Referrals: CELE TONEY DO (PCP/Family) Primary Care Physician DISHA PINEDA APRN Feb 18, 2021 20:49
[2021-02-18 20:50] LABS: CALCIUM 9.7 MG/DL (8.5-10.1)
[2021-02-18 20:51] LABS: TOTAL PROTEIN 8.4 GM/DL (6.4-8.2)
[2021-02-18 20:53] LABS: BILIRUBIN,TOTAL 1.2 MG/DL (0.1-1.0); INR 1.1 (0.8-1.4); PROTHROMBIN TIME PATIENT 14.7 SEC (12.2-14.7)
[2021-02-18 20:55] LABS: CREATININE SERUM 2.11 MG/DL (0.60-1.30)
[2021-02-18 21:21] LABS: LYMPHOCYTES % (MANUAL) 4 %; MONOCYTES % (MANUAL) 6 %; NEUTROPHILS % (MANUAL) 90 %; RBC MORPH NORMAL
[2021-02-18] MEDS ORDERED: fentaNYL INJ 100 MCG/2 ML AMP IVP ONE (21:30)
[2021-02-18 21:55] LABS: BILIRUBIN,URINE NEGATIVE (NEGATIVE); CLARITY,URINE TURBID; COLOR,URINE YELLOW; GLUCOSE, URINE (UA) NEGATIVE (NEGATIVE); KETONES,URINE TRACE (NEGATIVE); LEUKOCYTE ESTERASE ,URINE 3+ (NEGATIVE); NITRITE,URINE NEGATIVE (NEGATIVE); PROTEIN,URINE 2+ (NEGATIVE)
--- NOTE | 2021-02-18 21:57 | Diagnostic Imaging Report ---
Clinical indications: Patient with diffuse abdominal pain and back pain x4-5 days and sepsis. Exam: Portable chest x-ray upright view. Comparisons: Chest x-ray dated 02/04/2021. Findings: There is mild bibasilar atelectasis. There is slight increased airspace opacities bilaterally which may be related to atelectasis, but superimposed infiltrates cannot be completely excluded. There is no pleural effusion or pneumothorax. Pulmonary vasculature and cardiac silhouette are within normal limits. There are degenerative spurs involving the thoracic spine. IMPRESSION: There is mild airspace opacities involving both lungs which may represent atelectasis, but superimposed infiltrates cannot be completely excluded. Dictated by: Dictated on workstation # [id number]
--- NOTE | 2021-02-18 21:58 | Diagnostic Imaging Report ---
Clinical indications: Patient with sepsis. Exam: KUB x-ray. Comparison: X-ray of the abdomen dated 02/04/2021. Findings and impression: 1: There are 3 calcifications overlying the expected region of the left kidney. Left double-J ureteral stent has been placed in the interim. There are no definite stones along the pathway of the left ureter or overlying the region of the bladder. 2: There is no intestinal obstruction seen. 3: There are degenerative spurs involving the thoracic spine and both hips. Dictated by: Dictated on workstation # [id number]
[2021-02-18] MEDS ORDERED: CEFEPIME INJECTION 1,000 MG in WATER (STERILE) FOR INJECTION 10 ML IV ONE (22:00)
[2021-02-18 22:16] LABS: WBC,URINE TNTC /HPF
[2021-02-18 22:17] LABS: BACTERIA,URINE TRACE /HPF
[2021-02-18 23:07] VITALS: BP 124/76
[2021-02-18] MEDS: cefTRIAXone 2,000 MG/SWFI 20 ML IV PUSH IV SCH ×2 (23:29)
[2021-02-18] MEDS: LACTATED RINGERS 1,000 ML IV SCH (23:29)
[2021-02-18] MEDS: ACETAMINOPHEN 325 MG TABLET PO PRN (23:30)
[2021-02-18] MEDS ORDERED: ONDANSETRON 4 MG/2 ML (SDV) Z0FRAN IV PRN (23:30)
[2021-02-18] MEDS ORDERED: fentaNYL INJ 100 MCG/2 ML AMP IV PRN (23:30)
[2021-02-19 04:00] VITALS: BP 135/70
[2021-02-19] MEDS: LACTATED RINGERS 1,000 ML IV SCH ×3 (05:58→20:07)
[2021-02-19] MEDS ORDERED: ENOXAPARIN 40 MG/0.4 ML (LOVENOX) SYR SQ SCH (08:00)
--- NOTE | 2021-02-19 08:02 | History & Physical-Hospitalist ---
History of Present Illness HPI/Chief Complaint Pt is a 70yoCM known to me from recent admission who presented to the ER due to fevers and chills. He was jsut here at the end of January with sepsis from pyelonephritis and obstructing stone. He underwent ureteral stent placement and plan was for outpatient lithotripsy today but 2 days ago he developed fevers and chills. He completed his outpatient course of antibiotics on 02/15 he believes and then on 02/17 developed fever again prompting him to return to the ER for evaluation where he was found to be septic and was admitted for further care. He reports being very tired and at first did not remove his blanket from his head when I entered the room. He states he's feeling slightly better but would mostly just like to sleep. His brother entered shortly afterwards and I updated him as well. Source: patient Date Seen 02/19/21 Time Seen by a Provider: 07:56 Attending Physician Nabil Ann MD PCP Danny Gonzalez DO Referring Physician Date of Admission Feb 18, 2021 at 21:45 Home Medications & Allergies Home Medications Reviewed patient Home Medication Reconciliation performed by pharmacy medication reconciliations medical technician assistant and/or nursing. Patients Allergies have been reviewed. Allergies Allergies Coded Allergies ampicillin (Unverified Allergy, Intermediate, HIVES, 05/05/12) Past Zzdsbzk-Qzmjrm-Uxazvv Hx Patient Social History Tobacco Use?: No Use of E-Cig and/or Vaping dev: No Substance use?: No Alcohol Use?: No Immunizations Up To Date Date of Influenza Vaccine: Jul 13, 2019 Tetanus Booster (TDap): Unknown Date of Pneumonia Vaccine: May 19, 2015 Seasonal Allergies Seasonal Allergies: No Current Status Advance Directives: No Primary Language: Samoan Preferred Spoken Language: Samoan Past Medical History Surgeries: Orthopedic, Renal Sleep Apnea Currently Using CPAP: Yes Currently Using BIPAP: No Chronic Edema/Swelling Benign Prostatic Hyperpl, Kidney Stones Arthritis Blood Disorders: No Family Medical History Reviewed Nursing Family Hx No Pertinent Family Hx Review of Systems Constitutional: chills, fever, malaise EENTM: no symptoms reported Respiratory: No cough, No short of breath Cardiovascular: No chest pain, No edema, No palpitations Gastrointestinal: abdominal pain; No constipation, No nausea Genitourinary: see HPI Musculoskeletal: back pain Skin: no symptoms reported Psychiatric/Neurological: No Symptoms Reported Physical Exam Physical Exam Vital Signs Vital Signs - First Documented 02/18/21 20:23 Temp 36.4 Pulse 105 Resp 18 B/P (MAP) 133/67 (89) Pulse Ox 99 O2 Delivery Room Air Capillary Refill : Less Than 3 Seconds Height, Weight, BMI Height: 5'7.00" Weight: 325lbs. 6.0oz. 147.301807sp; 49.81 BMI Method:Stated General Appearance: No Apparent Distress, Chronically ill, Obese HEENT: PERRL/EOMI, Moist Mucous Membranes; No Scleral Icterus (L), No Scleral Icterus (R) Neck: Normal Inspection, Supple Respiratory: Lungs Clear, No Accessory Muscle Use, No Respiratory Distress Cardiovascular: Regular Rate, Rhythm, No Murmur Gastrointestinal: Normal Bowel Sounds, Non Tender, Soft Extremity: Normal Capillary Refill, No Calf Tenderness, No Pedal Edema Neurologic/Psychiatric: Alert, Oriented x3, Normal Mood/Affect Skin: Normal Color, Warm/Dry Results Results/Procedures Labs Laboratory Tests 02/18/21 20:08 02/19/21 09:22 Patient resulted labs reviewed. Imaging: Reviewed Imaging Report Imaging [facility] [place] NAME: CHRISTINA SILVEIRA [facility] REC#: [id number] PT STATUS: ADM IN : 1950 PHYSICIAN: DISHA PINEDA APRN ADMIT DATE: 02/18/21/[facility] Signed Date of Exam:02/18/21 ABDOMEN/KUB 1VIEW Clinical indications: Patient with sepsis. Exam: KUB x-ray. Comparison: X-ray of the abdomen dated 02/04/2021. Findings and impression: 1: There are 3 calcifications overlying the expected region of the left kidney. Left double-J ureteral stent has been placed in the interim. There are no definite stones along the pathway of the left ureter or overlying the region of the bladder. 2: There is no intestinal obstruction seen. 3: There are degenerative spurs involving the thoracic spine and both hips. Dictated by: Dictated on workstation # [id number] Dict: 02/18/219 Trans: 02/18/21 2259 [facility] [id number] Interpreted by: TODD VANG MD Electronically signed by: TODD VANG MD 02/18/21 7107 Assessment/Plan Admission Diagnosis Sepsis Admission Status: Inpatient Order (span 2 midnights) Reason for Inpatient Admission: see below Assessment and Plan Sepsis due to pyelonephritis left ureteral stone s/p stenting BPH Continue on Rocephin per previous sensitivities Discussed with Dr Spain who will sese in consultation today Await cultures from ER urine last night Already defervesced Continue home finasteride CKD Stage 3b Appears near baseline from 2 years ago Trend OA Debility RN reports he arrived in soiled underwear and was unable to change Continue home Lortab PT/OT DVT ppx: Lovenox Diagnosis/Problems Diagnosis/Problems (1) CKD (chronic kidney disease) Qualifiers: Chronic kidney disease stage: stage 3 (moderate) Chronic kidney disease stage 3 subtype: stage 3a (GFR 45-59) Qualified Codes: N18.31 - Chronic kidney disease, stage 3a (2) Sepsis Status: Acute (3) Pyelonephritis Status: Acute (4) Left ureteral stone (5) Generalized weakness Status: Acute (6) BPH (benign prostatic hyperplasia) (7) Osteoarthritis AMELIA MICHEL MD Feb 19, 2021 08:02
[2021-02-19 08:08] VITALS: BP 119/59
[2021-02-19] MEDS: ENOXAPARIN 40 MG/0.4 ML (LOVENOX) SYR SQ SCH ×2 (09:35→20:07)
[2021-02-19 09:40] LABS: BASOPHILS # (AUTO) 0.1 10^3/uL (0.0-0.1); BASOPHILS % (AUTO) 1 % (0-10); EOSINOPHILS % (AUTO) 0 % (0-10); HEMATOCRIT 31 % (40-54); HEMOGLOBIN 10.4 g/dL (13.3-17.7); LYMPHOCYTES # (AUTO) 0.5 X 10^3 (1.0-4.0); LYMPHOCYTES % (AUTO) 4 % (12-44); MEAN CORPUSCULAR HEMOGLOBIN 31 pg (25-34); MEAN CORPUSCULAR HGB CONC 34 g/dL (32-36); MEAN CORPUSCULAR VOLUME 91 fL (80-99); MEAN PLATELET VOLUME 10.4 fL (9.0-12.2); MONOCYTES # (AUTO) 1.1 X 10^3 (0.0-1.0); MONOCYTES % (AUTO) 9 % (0-12); NEUTROPHILS # (AUTO) 10.5 X 10^3 (1.8-7.8); NEUTROPHILS % (AUTO) 86 % (42-75); PLATELET COUNT 224 10^3/uL (130-400); WHITE BLOOD COUNT 12.1 10^3/uL (4.3-11.0)
--- NOTE | 2021-02-19 09:50 | CONSULTATION REPORT ---
DATE OF SERVICE: 02/19/2021 ATTENDING PHYSICIAN: Dr. Dias. SUMMARY: A 70-year-old white man who has left renal stones, who is scheduled today for an ESWL, has a stent in. However, he presented to the emergency room yesterday and was admitted for urosepsis, started on IV antibiotic and IV fluid. He is feeling slightly better today. We cancelled his surgery because of the sepsis being a contraindication for an ESWL. A KUB showed the stent in good position and the three stones in the kidney down in the lower pole oseas, no calcification seen along the course of the stent in the ureter. IMPRESSION: Left renal stone with urosepsis. PLAN: Continue above management further treatment of urosepsis. Keep him on the antibiotic until I see him back in 2 weeks and set him up again for an ESWL when the machine comes back in two weeks. Plan was fully explained to the patient. Job ID: [id number] DocumentID: [id number] Dictated Date: 02/19/2021 08:35:31 Wash Mill Operator Date: 02/19/2021 09:49:26 Dictated By: RAOUL PATEL MD
[2021-02-19 10:07] LABS: ALBUMIN 3.2 GM/DL (3.2-4.5); BILIRUBIN,TOTAL 0.5 MG/DL (0.1-1.0); CREATININE SERUM 1.83 MG/DL (0.60-1.30); POTASSIUM 4.1 MMOL/L (3.6-5.0)
[2021-02-19] MEDS ORDERED: PHEN-483 PO (10:14)
--- NOTE | 2021-02-19 11:24 | Occupational Therapy Eval ---
OT Evaluation-General/PLF Medical Diagnosis Admission Date Feb 18, 2021 at 21:45 Medical Diagnosis: pyelonephritis, sepsis Onset Date: Mar 01, 2021 Therapy Diagnosis Therapy Diagnosis: weakness, decreased ADL status Height/Weight Height (Feet): 5 Height (Inches): 7.00 Weight (Pounds): 325 Weight (Ounces): 6.0 Precautions Precautions/Isolations: Fall Prevention, Standard Precautions Referral Physician: Larissa Referral Reason: Evaluation/Treatment Medical History Pertinent Medical History: HTN, OA Additional Medical History sleep apnea with CPAP, benign prostatic hyperpl, kidney stones, arthritis, renal stone removal x3, R knee arthroscopy, obesity Social History Home: Single Level Current Living Status: Alone ADL-Prior Level of Function SCALE: Activities may be completed with or without assistive devices. 5-Bwesitvrnb-ovjvbwb completes the activity by him/herself with no assistance from a helper. 5-Set-up or Clean-up Assistance-helper sets up or cleans up; patient completes activity. [place] assists only prior to or following the activity. 4-Supervision or Touching Assistance-helper provides verbal cues and/or touching/steadying and/or contact guard assistance as patient completes activ ity. Assistance may be provided throughout the activity or intermittently. 3-Partial/Moderate Assistance-helper does LESS THAN HALF the effort. [place] lifts, holds or supports trunk or limbs, but provides less than half the effort. 2-Substantial/Maximal Assistance-helper does MORE THAN HALF the effort. [place] lifts or holds trunk or limbs and provides more than half the effort. 1-Pjjrlqubq-ulyapx does ALL the effort. Patient does none of the effort to complete the activity. Or, the assistance of 2 or more helpers is required for the patient to complete the activity. If activity was not attempted, code reason: 7-Patient Refused. 9-Not Applicable-not attempted and the patient did not perform the activity before the current illness, exacerbation or injury. 10-Not Attempted due to Environmental Limitations-(lack of equipment, weather restraints, etc.). 88-Not Attempted due to Medical Conditions or Safety Concerns. ADL PLOF Comments Pt reports being IND with all ADLs and functional mobility at PLOF, completes his own yard work, cooking and cleaning. he works a few days a week Self Care: Independent Functional Cognition: Independent DME/Equipment: Tub/Shower DME/Equipment Comments cane OT Current Status Subjective Pt laying in bed, apologizes to this therapist as he had called for assistance to bathroom and unable to hold BM any longer. Mental Status/Objective Patient Orientation: Person, Place, Time, Situation Attachments: IV Current Glasses/Contacts: Yes Hearing Aids: No Dentures/Partials: No Hand Dominance: Right Upper Extremity ROM WFL Upper Extremity Coordination WFL Upper Extremity Sensation WFL Upper Extremity Strength grossly 4/5 BUEs ADL-Treatment Toileting Hygiene (QC): 1 (total assist after incontinent of bowels.) Other Treatments Pt laying in bed, incontinent about bowels. Assist x2 to roll side to side in order to change linens and clean up after a bowel movement. Hospital gown changed due to being soiled. OT educated pt on completing UE exercises in order to increase strength and activity tolerance, he verbalized and demo'd understanding. Post tx, pt laying in bed, call light in reach and all needs met. Education OT Patient Education: Correct positioning, Exercise program, Modified ADL techniques, Progress toward Goal/Update tx plan, Purpose of tx/functional activities, Rehab process Teaching Recipient: Patient Teaching Methods: Discussion Response to Teaching: Verbalize Understanding OT Halfway Goals Baccarat Dealer Goals Time Frame: Mar 01, 2021 Eating (QC): 6 Oral Hygiene (QC): 6 Toileting Hygiene (QC): 6 Shower/Bathe Self (QC): 6 Upper Body Dressing (QC): 6 Lower Body Dressing (QC): 6 On/Off Footwear (QC): 6 Additional Goals: 1-Demonstrate ADL Tasks, 2-Verbalize Understanding, 3- ImproveStrength/Corrine 1=Demonstrate adherence to instructed precautions during ADL tasks. 2=Patient will verbalize/demonstrate understanding of assistive devices/modifications for ADL. 3=Patient will improve strength/tolerance for activity to enable patient to perform ADL's. OT Education/Plan Problem List/Assessment Assessment: Decreased Activ Tolerance, Decreased UE Strength, Impaired Funct Balance, Impaired I ADL's, Impaired Self-Care Skills, Restricted Funct UE ROM Discharge Recommendations Plan/Recommendations: Continue POC Treatment Plan/Plan of Care Patient would benefit from OT for education, treatment and training to promote independence in ADL's, mobility, safety and/or upper extremity function for ADL's. Plan of Care: ADL Retraining, Functional Mobility, UE Funct Exercise/Act Treatment Duration: Mar 01, 2021 Frequency: 5 times per week Estimated Hrs Per Day: .25 hour per day Rehab Potential: Fair Time/GCodes Start Time: 10:45 Stop Time: 11:04 Total Time Billed (hr/min): 19 Billed Treatment Time 1, VICENTE MISHRA OT Feb 19, 2021 11:24
[2021-02-19 12:29] VITALS: BP 133/76
[2021-02-19] MEDS ORDERED: LOPERAMIDE 2 MG (IMODIUM) TABLET PO PRN (13:30)
--- NOTE | 2021-02-19 14:42 | Physical Therapy Evaluation ---
PT Evaluation-General Medical Diagnosis Admission Date Feb 18, 2021 at 21:45 Medical Diagnosis: pyelonephritis, sepsis Onset Date: Mar 01, 2021 Therapy Diagnosis Therapy Diagnosis: generalized weakness/debility Height/Weight Height (Feet): 5 Height (Inches): 7.00 Weight (Pounds): 325 Weight (Ounces): 6.0 Precautions Precautions/Isolations: Fall Prevention, Standard Precautions Referral Physician: Larissa Reason for Referral: Evaluation/Treatment Medical History Pertinent Medical History: HTN, OA Current History ER secondary to abdominal pain and chill Reviewed History: Yes Social History Home: Single Level Current Living Status: Alone Prior Prior Level of Function SCALE: Activities may be completed with or without assistive devices. 3-Icslrpmedp-naxfjjs completes the activity by him/herself with no assistance from a helper. 5-Set-up or Clean-up Assistance-helper sets up or cleans up; patient completes activity. [place] assists only prior to or following the activity. 4-Supervision or Touching Assistance-helper provides verbal cues and/or touching/steadying and/or contact guard assistance as patient completes activity. Assistance may be provided throughout the activity or intermittently. 3-Partial/Moderate Assistance-helper does LESS THAN HALF the effort. [place] lifts, holds or supports trunk or limbs, but provides less than half the effort. 2-Substantial/Maximal Assistance-helper does MORE THAN HALF the effort. [place] lifts or holds trunk or limbs and provides more than half the effort. 3-Znclxlhmx-zotskn does ALL the effort. Patient does none of the effort to complete the activity. Or, the assistance of 2 or more helpers is required for the patient to complete the activity. If activity was not attempted, code reason: 7-Patient Refused. 9-Not Applicable-not attempted and the patient did not perform the activity before the current illness, exacerbation or injury. 10-Not Attempted due to Environmental Limitations-(lack of equipment, weather restraints, etc.). 88-Not Attempted due to Medical Conditions or Safety Concerns. Bed Mobility: 6 Transfers (B,C,W/C): 6 Gait: 6 Stairs: 6 Indoor Mobility (Ambulation): Independent Stairs: Independent Prior Devices Use: Other-see list below Prior Device Use: cane or FWW PT Evaluation-Current Subjective Patient reports fatigue and not feeling well. Does agree to PT. Objective Patient Orientation: Normal For Age Attachments: IV ROM/Strength ROM Lower Extremities bilateral LE WFL Strength Lower Extremities 3/5 grossly bilateral LE Integumentary/Posture Bowel Incontinence: Yes Posture WFL Neuromuscular (Tone, Coordination, Reflexes) grossly intact Sensory Vision: Functional Hearing: Functional Hand Dominance: Right Transfers Roll Left to Right (QC): 3 Sit to Lying (QC): 3 Lying to Sitting/Side of Bed(Q: 3 Sit to Stand (QC): 3 Chair/Qaf-mp-Iyuca Xfer(QC): 7 Gait Does the Patient Walk?: Yes Mode of Locomotion: Walk Anticipated Mode of Locomotion: Walk Distance: 5 side steps Gait Assistive Device: FWW Balance Sitting Static: Normal Sitting Dynamic: Normal Standing Static: Fair Standing Dynamic: Fair Picking up an Object (QC): 88 Assessment/Needs 70 y.o. male, will benefit from skilled PT to address functional strength and mobility to improve current LOF to safely return to home at maximum LOF. 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 Supervisor Goals Mcc Goals PT Mcc Goals Time Frame: Mar 02, 2021 Roll Left & Right (QC): 6 Sit to Lying (QC): 6 Lying-Sitting on Side/Bed(QC): 6 Sit to Stand (QC): 6 Chair/Xjz-qm-Jbqik Xfer(QC): 6 Toilet Transfer (QC): 6 Walk 10 feet (QC): 6 Walk 50ft with 2 Turns (QC): 6 Walk 150 ft (QC): 6 PT Plan Problem List Problem List: Activity Tolerance, Functional Strength, Balance, Gait, Transfer, Bed Mobility Treatment/Plan Treatment Plan: Continue Plan of Care Treatment Plan: Bed Mobility, Education, Functional Activity Corrine, Functional Strength, Gait, Safety, Therapeutic Exercise, Transfers Treatment Duration: Mar 02, 2021 Frequency: 6 times per week Estimated Hrs Per Day: .25 hour per day Patient and/or Family Agrees t: Yes Discharge Recommendations Therapy Discharge Recommendati: Home & Family Time/GCodes Time In: 1358 Time Out: 1410 Total Billed Treatment Time: 12 Total Billed Treatment 1 visit EVModC 12 min DAVID PURDY PT Feb 19, 2021 14:42
[2021-02-19 16:00] VITALS: BP 150/72
[2021-02-19] MEDS ORDERED: CALCIUM CARBONATE 500 MG (TUMS) TAB.CHEW PO PRN (16:45)
[2021-02-19] MEDS ORDERED: [UNRECOGNIZED DRUG - REMARK] PO PRN (16:45)
[2021-02-19] MEDS ORDERED: LORATADINE (CLARITIN) 10 MG TAB PO PRN (16:45)
[2021-02-19] MEDS ORDERED: HYDROcodone/APAP 7.5 MG/325 MG (LORTAB, LORCET PLUS) TABLET PO PRN (16:45)
[2021-02-19] MEDS ORDERED: CHOLESTYRAMINE 4 GM (QUESTRAN LITE, PREVALITE) PKT PO NR (16:45)
[2021-02-19] MEDS: ACETAMINOPHEN 325 MG TABLET PO PRN (17:13)
[2021-02-19] MEDS: VANCOMYCIN 125 MG CAPSULE PO SCH ×2 (17:13→23:26)
[2021-02-19] MEDS: PANTOPRAZOLE 40 MG (PROTONIX) TAB PO SCH (17:13)
[2021-02-19 20:00] VITALS: BP 113/57
[2021-02-19] MEDS: FINASTERIDE (PROSCAR) 5 MG TAB PO SCH (20:07)
[2021-02-19] MEDS: cefTRIAXone 2,000 MG/SWFI 20 ML IV PUSH IV SCH ×2 (20:07)
[2021-02-19 23:26] VITALS: BP 130/64
[2021-02-20] VITALS: BP 150/79
[2021-02-20] MEDS: LACTATED RINGERS 1,000 ML IV SCH ×2 (02:44→07:56)
[2021-02-20 04:00] VITALS: BP 142/68
[2021-02-20] MEDS: VANCOMYCIN 125 MG CAPSULE PO SCH ×4 (05:56→23:43)
[2021-02-20] MEDS: PANTOPRAZOLE 40 MG (PROTONIX) TAB PO SCH ×2 (07:57→22:03)
[2021-02-20] MEDS: MONTELUKAST 10 MG (SINGULAIR) TAB PO SCH (07:57)
[2021-02-20] MEDS: ENOXAPARIN 40 MG/0.4 ML (LOVENOX) SYR SQ SCH ×2 (07:57→22:02)
[2021-02-20 08:00] VITALS: BP 121/73
[2021-02-20 08:44] LABS: BASOPHILS # (AUTO) 0.1 10^3/uL (0.0-0.1); BASOPHILS % (AUTO) 1 % (0-10); EOSINOPHILS # (AUTO) 0.1 10^3/uL (0.0-0.3); EOSINOPHILS % (AUTO) 1 % (0-10); HEMATOCRIT 29 % (40-54); HEMOGLOBIN 9.7 g/dL (13.3-17.7); LYMPHOCYTES # (AUTO) 0.8 X 10^3 (1.0-4.0); LYMPHOCYTES % (AUTO) 8 % (12-44); MEAN CORPUSCULAR HEMOGLOBIN 31 pg (25-34); MEAN CORPUSCULAR HGB CONC 33 g/dL (32-36); MEAN CORPUSCULAR VOLUME 92 fL (80-99); MEAN PLATELET VOLUME 10.3 fL (9.0-12.2); MONOCYTES # (AUTO) 1.2 X 10^3 (0.0-1.0); MONOCYTES % (AUTO) 12 % (0-12); NEUTROPHILS # (AUTO) 7.3 X 10^3 (1.8-7.8); NEUTROPHILS % (AUTO) 77 % (42-75); PLATELET COUNT 206 10^3/uL (130-400); WHITE BLOOD COUNT 9.5 10^3/uL (4.3-11.0)
[2021-02-20 09:16] LABS: ALBUMIN 2.9 GM/DL (3.2-4.5); BILIRUBIN,TOTAL 0.3 MG/DL (0.1-1.0); CALCIUM 8.6 MG/DL (8.5-10.1); CREATININE SERUM 1.7 MG/DL (0.60-1.30); POTASSIUM 3.7 MMOL/L (3.6-5.0); TOTAL PROTEIN 6.7 GM/DL (6.4-8.2)
--- NOTE | 2021-02-20 09:52 | Progress Note - Hospitalist ---
Subjective HPI/CC On Admission Date Seen by Provider: Feb 20, 2021 Time Seen by Provider: 09:48 Pt is a 70yoCM known to me from recent admission who presented to the ER due to fevers and chills. He was jsut here at the end of January with sepsis from pyelonephritis and obstructing stone. He underwent ureteral stent placement and plan was for outpatient lithotripsy today but 2 days ago he developed fevers and chills. He completed his outpatient course of antibiotics on 02/15 he believes and then on 02/17 developed fever again prompting him to return to the ER for evaluation where he was found to be septic and was admitted for further care. He reports being very tired and at first did not remove his blanket from his head when I entered the room. He states he's feeling slightly better but would mostly just like to sleep. His brother entered shortly afterwards and I updated him as well. Subjective/Events-last exam Pt reports doing much better today. Fever broke. Eating some and diarrhea resolving and had a formed stool. Brother at bedside. Focused Exam Lactate Level 02/18/21 20:08: Lactic Acid Level 1.81 Objective Exam Vital Signs Vital Signs Date Time Temp Pulse Resp B/P (MAP) Pulse Ox O2 Delivery O2 Flow Rate FiO2 02/20/21 08:00 36.0 86 20 121/73 (89) 97 Room Air Capillary Refill : Less Than 3 Seconds General Appearance: No Apparent Distress, Chronically ill, Obese Respiratory: Lungs Clear, No Respiratory Distress Cardiovascular: Regular Rate, Rhythm, No Murmur Neurologic/Psychiatric: Alert, Oriented x3 Results/Procedures Lab Laboratory Tests 02/20/21 08:30 Patient resulted labs reviewed. Imaging: Reviewed Imaging Report Assessment/Plan Assessment and Plan Assess & Plan/Chief Complaint Sepsis due to pyelonephritis left ureteral stone s/p stenting BPH Continue on Rocephin per previous sensitivities Dr Spain consulted, appreciate recs Await cultures from ER Continue home finasteride C diff colitis Continue oral vanc Stool forming On precautions CKD Stage 3b Appears near baseline from 2 years ago Trend OA Debility RN reports he arrived in soiled underwear and was unable to change Continue home Lortab PT/OT DVT ppx: Lovenox Diagnosis/Problems Diagnosis/Problems (1) CKD (chronic kidney disease) Qualifiers: Chronic kidney disease stage: stage 3 (moderate) Chronic kidney disease stage 3 subtype: stage 3a (GFR 45-59) Qualified Codes: N18.31 - Chronic kidney disease, stage 3a (2) Sepsis Status: Acute (3) Pyelonephritis Status: Acute (4) Left ureteral stone (5) Generalized weakness Status: Acute (6) BPH (benign prostatic hyperplasia) (7) Osteoarthritis AMELIA MICHEL MD Feb 20, 2021 09:52
[2021-02-20] MEDS: CHOLESTYRAMINE 4 GM (QUESTRAN LITE, PREVALITE) PKT PO SCH (10:09)
--- NOTE | 2021-02-20 10:59 | Physical Therapy Daily Note ---
PT Daily Note-Current Subjective Patient agrees to PT. Mental Status Patient Orientation: Normal For Age Transfers SCALE: Activities may be completed with or without assistive devices. 4-Eunoytmmzv-jguvwyb completes the activity by him/herself with no assistance from a helper. 5-Set-up or Clean-up Assistance-helper sets up or cleans up; patient completes activity. [place] assists only prior to or following the activity. 4-Supervision or Touching Assistance-helper provides verbal cues and/or touching/steadying and/or contact guard assistance as patient completes activity. Assistance may be provided throughout the activity or intermittently. 3-Partial/Moderate Assistance-helper does LESS THAN HALF the effort. [place] lifts, holds or supports trunk or limbs, but provides less than half the effort. 2-Substantial/Maximal Assistance-helper does MORE THAN HALF the effort. [place] lifts or holds trunk or limbs and provides more than half the effort. 4-Viwuwrxpy-nswfer does ALL the effort. Patient does none of the effort to complete the activity. Or, the assistance of 2 or more helpers is required for the patient to complete the activity. If activity was not attempted, code reason: 7-Patient Refused. 9-Not Applicable-not attempted and the patient did not perform the activity befo re the current illness, exacerbation or injury. 10-Not Attempted due to Environmental Limitations-(lack of equipment, weather re straints, etc.). 88-Not Attempted due to Medical Conditions or Safety Concerns. Lying to Sitting/Side of Bed(Q: 4 Sit to Stand (QC): 4 Chair/Cgq-kq-Aaeab Xfer(QC): 4 Toilet Transfer (QC): 4 SBA with all mobility Gait Training Does the Patient Walk?: Yes Distance: 50' Walk 10 feet (QC): 4 (SBA) Walk 50 ft with 2 Turns(QC): 4 (SBA) Gait Assistive Device: FWW slow, steady pace Assessment Patient tolerated treatment well and requested toilet use. Call light in hand. Increase activity as tolerated by patient. PT Photo Intern Goals Photo Intern Goals PT Photo Intern Goals Time Frame: Mar 02, 2021 Roll Left & Right (QC): 6 Sit to Lying (QC): 6 Lying-Sitting on Side/Bed(QC): 6 Sit to Stand (QC): 6 Chair/Arg-es-Bbgvx Xfer(QC): 6 Toilet Transfer (QC): 6 Walk 10 feet (QC): 6 Walk 50ft with 2 Turns (QC): 6 Walk 150 ft (QC): 6 PT Plan Treatment/Plan Treatment Plan: Continue Plan of Care Treatment Plan: Bed Mobility, Education, Functional Activity Corrine, Functional Strength, Gait, Safety, Therapeutic Exercise, Transfers Treatment Duration: Mar 02, 2021 Frequency: 6 times per week Estimated Hrs Per Day: .25 hour per day Patient and/or Family Agrees t: Yes Time/GCodes Time In: 1025 Time Out: 1040 Total Billed Treatment Time: 15 Total Billed Treatment 1 visit FA 15 min DAVID PURDY PT Feb 20, 2021 10:59
--- NOTE | 2021-02-20 11:35 | Progress Note - Urology ---
Progress Note-Urology Progress Notes/Assess & Plan Progress/Assessment & Plan FEELING, LOOKING AND DOING BETTER. PLAN FULLY EXPLAINED TO PATIENT Final Diagnosis UROSEPSIS AND LT RENAL STONES RAOUL PATEL MD Feb 20, 2021 11:35
--- NOTE | 2021-02-20 11:46 | Occupational Ther Daily Note ---
OT Current Status-Daily Note Subjective Pt up in chair, agreeable to OT tx. Mental Status/Objective Attachments: Telemetry ADL-Treatment Therapy Code Descriptions/Definitions Functional [place] Measure: 0=Not Assessed/NA 4=Minimal Assistance 1=Total Assistance 5=Supervision or Setup 2=Maximal Assistance 6=Modified [place] 3=Moderate Assistance 7=Complete IndependenceSCALE: Activities may be completed with or without assistive devices. 1-Bhivqkzgjj-jljdgaw completes the activity by him/herself with no assistance from a helper. 5-Set-up or Clean-up Assistance-helper sets up or cleans up; patient completes activity. [place] assists only prior to or following the activity. 4-Supervision or Touching Assistance-helper provides verbal cues and/or touching/steadying and/or contact guard assistance as patient completes activity . Assistance may be provided throughout the activity or intermittently. 3-Partial/Moderate Assistance-helper does LESS THAN HALF the effort. [place] lifts, holds or supports trunk or limbs, but provides less than half the effort. 2-Substantial/Maximal Assistance-helper does MORE THAN HALF the effort. [place] lifts or holds trunk or limbs and provides more than half the effort. 7-Msgyuhenl-judlnv does ALL the effort. Patient does none of the effort to complete the activity. Or, the assistance of 2 or more helpers is required for the patient to complete the activity. If activity was not attempted, code reason: 7-Patient Refused. 9-Not Applicable-not attempted and the patient did not perform the activity before the current illness, exacerbation or injury. 10-Not Attempted due to Environmental Limitations-(lack of equipment, weather restraints, etc.). 88-Not Attempted due to Medical Conditions or Safety Concerns. Eating (QC): 6 (Per pt report) Oral Hygiene (QC): 6 (IND with mouthwash, declined completing at this time as he had already completed.) Other Treatment Pt seated in chair agreeable to OT tx. Pt indicates he has already completed toileting, and been up in his room walking with PT, declined toileting at this time. With encouragement, pt agreeable to completing UE exercise in order to increase strength and activity tolerance. Pt completed x10 reps shoulder flexion and x10 reps elbow flexion/extension. Pt had increased pain with movements, and "popping" in joints. OT educated pt on completing exercises to tolerance, he verbalized understanding. Pt declined further tx at this time. Post tx, pt up in chair, call light in reach and all needs met. Education OT Patient Education: Correct positioning, Modified ADL techniques, Progress toward Goal/Update tx plan, Purpose of tx/functional activities, Rehab process Teaching Recipient: Patient Teaching Methods: Discussion Response to Teaching: Verbalize Understanding OT Biochemistry Professor Goals Biochemistry Professor Goals Time Frame: Mar 01, 2021 Eating (QC): 6 Oral Hygiene (QC): 6 Toileting Hygiene (QC): 6 Shower/Bathe Self (QC): 6 Upper Body Dressing (QC): 6 Lower Body Dressing (QC): 6 On/Off Footwear (QC): 6 Additional Goals: 1-Demonstrate ADL Tasks, 2-Verbalize Understanding, 3- ImproveStrength/Corrine 1=Demonstrate adherence to instructed precautions during ADL tasks. 2=Patient will verbalize/demonstrate understanding of assistive devices/modifications for ADL. 3=Patient will improve strength/tolerance for activity to enable patient to perform ADL's. OT Education/Plan Problem List/Assessment Assessment: Decreased Activ Tolerance, Decreased UE Strength, Impaired I ADL's, Impaired Self-Care Skills Discharge Recommendations Plan/Recommendations: Continue POC Treatment Plan/Plan of Care Patient would benefit from OT for education, treatment and training to promote independence in ADL's, mobility, safety and/or upper extremity function for ADL's. Plan of Care: ADL Retraining, Functional Mobility, UE Funct Exercise/Act Treatment Duration: Mar 01, 2021 Frequency: 5 times per week Estimated Hrs Per Day: .25 hour per day Rehab Potential: Fair Time/GCodes Start Time: 11:15 Stop Time: 11:26 Total Time Billed (hr/min): 11 Billed Treatment Time 1, EX VICENTE ONEIL OT Feb 20, 2021 11:46
[2021-02-20 11:50] VITALS: BP 131/85
[2021-02-20 16:00] VITALS: BP 105/67
[2021-02-20 20:12] VITALS: BP 133/80
[2021-02-20] MEDS: cefTRIAXone 2,000 MG/SWFI 20 ML IV PUSH IV SCH ×2 (22:03)
[2021-02-20] MEDS: FINASTERIDE (PROSCAR) 5 MG TAB PO SCH (22:03)
[2021-02-21 00:01] VITALS: BP 135/79
[2021-02-21 03:43] VITALS: BP 108/68
[2021-02-21] MEDS: VANCOMYCIN 125 MG CAPSULE PO SCH ×2 (06:22→11:25)
[2021-02-21 08:02] VITALS: BP 129/85
[2021-02-21] MEDS: ENOXAPARIN 40 MG/0.4 ML (LOVENOX) SYR SQ SCH (08:39)
[2021-02-21] MEDS: PANTOPRAZOLE 40 MG (PROTONIX) TAB PO SCH (08:39)
[2021-02-21] MEDS: MONTELUKAST 10 MG (SINGULAIR) TAB PO SCH (08:39)
[2021-02-21 09:16] LABS: BASOPHILS # (AUTO) 0.1 10^3/uL (0.0-0.1); BASOPHILS % (AUTO) 1 % (0-10); EOSINOPHILS # (AUTO) 0.2 10^3/uL (0.0-0.3); EOSINOPHILS % (AUTO) 3 % (0-10); HEMATOCRIT 33 % (40-54); HEMOGLOBIN 10.8 g/dL (13.3-17.7); LYMPHOCYTES % (AUTO) 13 % (12-44); MEAN CORPUSCULAR HEMOGLOBIN 31 pg (25-34); MEAN CORPUSCULAR HGB CONC 33 g/dL (32-36); MEAN CORPUSCULAR VOLUME 93 fL (80-99); MEAN PLATELET VOLUME 10.9 fL (9.0-12.2); MONOCYTES # (AUTO) 0.9 10^3/uL (0.0-1.0); MONOCYTES % (AUTO) 11 % (0-12); NEUTROPHILS # (AUTO) 5.6 10^3/uL (1.8-7.8); NEUTROPHILS % (AUTO) 72 % (42-75); PLATELET COUNT 281 10^3/uL (130-400); WHITE BLOOD COUNT 7.8 10^3/uL (4.3-11.0)
[2021-02-21 09:51] LABS: ALBUMIN 3.2 GM/DL (3.2-4.5); BILIRUBIN,TOTAL 0.3 MG/DL (0.1-1.0); CALCIUM 9.1 MG/DL (8.5-10.1); CREATININE SERUM 1.65 MG/DL (0.60-1.30); POTASSIUM 4.1 MMOL/L (3.6-5.0); TOTAL PROTEIN 7.4 GM/DL (6.4-8.2)
[2021-02-21] MEDS ORDERED: SULF1TAB38 PO (10:05)
[2021-02-21] MEDS ORDERED: VANC125C5 PO ×2 (10:05→11:03)
--- NOTE | 2021-02-21 10:09 | Discharge Inst-Simple/Standard ---
Discharge Inst-Standard Discharge Medications New, Converted or Re-Newed RX: Transmitted to Pharmacy Patient Instructions/Follow Up Plan of Care/Instructions/FU: Please continue to take your medications as written. Please follow up with your primary care doctor to follow up this hospital stay. Activity as Tolerated: Yes Discharge Diet: No Restrictions Return to The Hospital For: fever, abdominal pain, worsening diarrhea, burning or bleeding with urination, weakness, if you feel you are getting worse. AMELIA MICHEL MD Feb 21, 2021 10:09
--- NOTE | 2021-02-21 10:12 | Discharge Summary ---
Diagnosis/Chief Complaint Date of Admission Feb 18, 2021 at 21:45 Date of Discharge Discharge Date: Feb 21, 2021 Admission Diagnosis Sepsis Primary Care Danny Gonzalez DO Discharge Diagnosis (1) CKD (chronic kidney disease) (2) Sepsis Status: Acute (3) Pyelonephritis Status: Acute (4) Left ureteral stone (5) Generalized weakness Status: Acute (6) BPH (benign prostatic hyperplasia) (7) Osteoarthritis Discharge Summary Discharge Physical Exam Allergies: Coded Allergies: ampicillin (Unverified Allergy, Intermediate, HIVES, 05/05/12) Vitals & I&Os Vital Signs Date Time Temp Pulse Resp B/P (MAP) Pulse Ox O2 Delivery O2 Flow Rate FiO2 02/21/21 12:05 36.4 89 18 103/70 (81) 100 Room Air General Appearance: No Apparent Distress, Chronically ill, Obese Respiratory: Lungs Clear, No Respiratory Distress Cardiovascular: Regular Rate, Rhythm, No Murmur Neurologic/Psychiatric: Alert, Oriented x3 Hospital Course Pt was admitted with sepsis from pyelonephritis. He was recently here and on antibiotics for similar and symptoms returned just after discontinuation of antibiotics. Antibiotics were resumed and he did well. He also was having diarrhea at home and c diff testing was done and antigen positive. He was treated with oral vanc and did well. Stools began to form and he felt better. He had verbalized that he was very weak after discharge last time and [facility] was consulted for eval and he was accepted. he declined admission there and declined all outpatient and home health therapies. I did have Social work from [facility] meet with him to discuss his options should he consider it after discharge. Labs (last 24 hrs) Laboratory Tests 02/21/21 08:54: White Blood Count 7.8, Red Blood Count 3.52L, Hemoglobin 10.8L, Hematocrit 33L, Mean Corpuscular Volume 93, Mean Corpuscular Hemoglobin 31, Mean Corpuscular Hemoglobin Concent 33, Red Cell Distribution Width 14.2, Platelet Count 281, Mean Platelet Volume 10.9, Immature Granulocyte % (Auto) 1, Neutrophils (%) (Auto) 72, Lymphocytes (%) (Auto) 13, Monocytes (%) (Auto) 11, Eosinophils (%) (Auto) 3, Basophils (%) (Auto) 1, Neutrophils # (Auto) 5.6, Lymphocytes # (Auto) 1.0, Monocytes # (Auto) 0.9, Eosinophils # (Auto) 0.2, Basophils # (Auto) 0.1, Immature Granulocyte # (Auto) 0.0, Sodium Level 140, Potassium Level 4.1, Chloride Level 109H, Carbon Dioxide Level 20L, Anion Gap 11, Blood Urea Nitrogen 26H, Creatinine 1.65H, Estimat Glomerular Filtration Rate 42, BUN/Creatinine Ratio 16, Glucose Level 111H, Calcium Level 9.1, Corrected Calcium 9.7, Total Bilirubin 0.3, Aspartate Amino Transf (AST/SGOT) 19, Alanine Aminotransferase (ALT/SGPT) 16, Alkaline Phosphatase 80, Total Protein 7.4, Albumin 3.2 Microbiology 02/19/21 C. difficile DNA Amplification - Final, Complete 02/19/21 C. difficile GDH Antigen & Toxins - Final, Complete 02/18/21 Urine Culture - Final, Complete Gram Pos Mixed Bacterial Susan Proteus mirabilis 02/18/21 Blood Culture - Preliminary, Resulted No growth Patient resulted labs reviewed. Pending Labs Laboratory Tests 02/21/21 08:54: White Blood Count 7.8, Red Blood Count 3.52, Hemoglobin 10.8, Hematocrit 33, Mean Corpuscular Volume 93, Mean Corpuscular Hemoglobin 31, Mean Corpuscular Hemoglobin Concent 33, Red Cell Distribution Width 14.2, Platelet Count 281, Mean Platelet Volume 10.9, Immature Granulocyte % (Auto) 1, Neutrophils (%) (Auto) 72, Lymphocytes (%) (Auto) 13, Monocytes (%) (Auto) 11, Eosinophils (%) (Auto) 3, Basophils (%) (Auto) 1, Neutrophils # (Auto) 5.6, Lymphocytes # (Auto) 1.0, Monocytes # (Auto) 0.9, Eosinophils # (Auto) 0.2, Basophils # (Auto) 0.1, Immature Granulocyte # (Auto) 0.0, Sodium Level 140, Potassium Level 4.1, Chloride Level 109, Carbon Dioxide Level 20, Anion Gap 11, Blood Urea Nitrogen 26, Creatinine 1.65, Estimat Glomerular Filtration Rate 42, BUN/Creatinine Ratio 16, Glucose Level 111, Calcium Level 9.1, Corrected Calcium 9.7, Total Bilirubin 0.3, Aspartate Amino Transf (AST/SGOT) 19, Alanine Aminotransferase (ALT/SGPT) 16, Alkaline Phosphatase 80, Total Protein 7.4, Albumin 3.2 Imaging: Reviewed Imaging Report Discussion & Recommendations Discharge Planning: >30 minutes discharge planning Discharge Home Medications: Active Scripts Active Vancomycin HCl 125 Mg Capsule 125 Mg PO Q6HR USE 340B [place]AVINGS PLAN- PT AWARE OF COST Bactrim Ds Tablet (Sulfamethoxazole/Trimethoprim) 1 Each Tablet 1 Each PO BID Reported Phentermine HCl 37.5 Mg Capsule 37.5 Mg PO DAILY Allergy Relief (Fexofenadine HCl) 180 Mg Tablet 180 Mg PO DAILY PRN Hydrocodone-Acetamin 7.5-325 (Hydrocodone/Acetaminophen) 1 Each Tablet 1 Each PO BID PRN Finasteride 5 Mg Tablet 5 Mg PO HS Singulair (Montelukast Sodium) 10 Mg Tablet 10 Mg PO DAILY Meloxicam 15 Mg Tablet 15 Mg PO DAILY Instructions to patient/family Please see electronic discharge instructions given to patient. Problem Qualifiers (1) CKD (chronic kidney disease): Chronic kidney disease stage: stage 3 (moderate) Chronic kidney disease stage 3 subtype: stage 3a (GFR 45-59) Qualified Codes: N18.31 - Chronic kidney disease, stage 3a AMELIA MICHEL MD Feb 21, 2021 10:12
[2021-02-21] MEDS: CHOLESTYRAMINE 4 GM (QUESTRAN LITE, PREVALITE) PKT PO SCH (10:29)
--- NOTE | 2021-02-21 11:03 | Progress Note - Urology ---
Progress Note-Urology Progress Notes/Assess & Plan Progress/Assessment & Plan OK TO DISCHARGE CHAVIRA. SEE ME IN OFFICE SCHEDULED Final Diagnosis UROSEPSIS AND LT RENAL STONES RAOUL PATEL MD Feb 21, 2021 11:03
[2021-02-21 12:05] VITALS: BP 103/70
--- NOTE | 2021-02-21 12:07 | Occ Therapy Progress Note ---
Therapy Progress Note Pt laying in bed, states he has been up to toilet independently, and he has already complete oral care and grooming tasks independently. He declined getting dressed at this time, but indicates he is able to complete task himself, has no concerns with ability to complete ADLs upon discharge. Pt indicates he is at his PLOF, IND with ADLs, thus no further skilled OT services indicated at this time, d/c from OT. 1, visit 1108 VICENTE ONEIL OT Feb 21, 2021 12:07
[2021-02-21 13:15] VITALS: BP 103/70
== END 2021-02-21 13:15 | disposition home or self-care (01) | DRG 872 ==
LOC: EDUNIT# 20:16 → ER 20:17 → CSD 21:45 → 4TH 02-20 14:41
PROVIDERS: ADMIT Internal Medicine; ATTEND Internal Medicine
DX: A41.9 Sepsis, unspecified organism (principal); N10 Acute pyelonephritis; N20.1 Calculus of ureter; A04.72 Enterocolitis due to Clostridium difficile, not specified as recurrent; N40.0 Benign prostatic hyperplasia without lower urinary tract symptoms; M19.90 Unspecified osteoarthritis, unspecified site; Z20.822 Contact with and (suspected) exposure to COVID-19; N18.32 Chronic kidney disease, stage 3b; Z96.0 Presence of urogenital implants; G47.39 Other sleep apnea; R53.81 Other malaise; Z79.82 Long term (current) use of aspirin; Z88.1 Allergy status to other antibiotic agents; Z79.899 Other long term (current) drug therapy
CPT/HCPCS: 36415; 71045; 74018; 80053; 81000; 83605; 85007; 85025; 85027; 85610; 85730; 87040; 87077; 87088; 87186; 87324; 87449; 87493; 87636

== ENCOUNTER 2021-02-26 05:32 | Outpatient (CLI) | payer MEDICARE ==
[~2021-02-26] VITALS: Ht 157 cm; Wt 122.8 kg
[~2021-02-26 05:32] MED LIST changes: +PHEN-483 PO; +SULF1TAB38 PO; +VANC125C5 PO
== END 2021-03-01 10:40 | disposition home or self-care (01) ==
LOC: PREOP 05:32
PROVIDERS: ATTEND Urology
DX: Z01.818 Encounter for other preprocedural examination (principal)

== ENCOUNTER 2021-03-05 06:01 | Day surgery (SDC) | payer MEDICARE ==
[2021-03-05] VITALS (10 sets, daily range): BP systolic 106–160; BP diastolic 57–72
[~2021-03-05] VITALS: Ht 157 cm; Wt 122.8 kg
[~2021-03-05 06:01] MED LIST changes: +PHEN37.58 PO
[2021-03-05] MEDS ORDERED: LACTATED RINGERS 1,000 ML IV PRN (07:15)
[2021-03-05] MEDS ORDERED: CATHETER FLUSH 10 ML SYR IV PRN (07:15)
[2021-03-05] MEDS ORDERED: cefTRIAXone 1,000 MG in WATER (STERILE) FOR INJECTION 10 ML IV ONE (07:15)
--- NOTE | 2021-03-05 07:26 | Progress Note-Pre Operative ---
Pre-Operative Progress Note H&P Reviewed The H&P was reviewed, patient examined and no changes noted. Date Seen by Provider: Mar 05, 2021 Time Seen by Provider: 07:25 Date H&P Reviewed: Mar 05, 2021 Time H&P Reviewed: 07:25 Pre-Operative Diagnosis: LT RENAL STONES RAOUL PATEL MD Mar 05, 2021 07:26
[2021-03-05] MEDS ORDERED: fentaNYL INJ 100 MCG/2 ML AMP ONE (07:37)
[2021-03-05] MEDS ORDERED: LIDOCAINE PF 2% 5 ML (XYLOCAINE) VIAL ONE (07:37)
[2021-03-05] MEDS ORDERED: ONDANSETRON 4 MG/2 ML (SDV) Z0FRAN ONE (07:37)
[2021-03-05] MEDS ORDERED: proPOfol 200 MG/20 ML (DIPRIVAN) VIAL IV ONE (07:37)
--- NOTE | 2021-03-05 08:10 | Diagnostic Imaging Report ---
INDICATION: Nephrolithiasis, extracorporeal shock wave lithotripsy. TECHNIQUE: 2 supine view of the abdomen 6:36 AM CORRELATION STUDY: 02/18/2021 FINDINGS: Left ureteral stent unchanged. Three calcifications in the left mid abdomen are again demonstrated. However, two of the calcifications appear to have migrated now project over the proximal aspect of the stent with a single one remaining over the renal silhouette. Overall size and configuration appears otherwise unchanged. Bowel gas pattern, scattered gas-filled loops of bowel are present and relatively nonobstructive appearance. There is markedly advanced degenerative changes of the lumbar spine with various degrees of compression deformity. IMPRESSION: 1. Apparent interval migration of 2 of the 3 stones. Two of the stones now project over the proximal aspect of the left ureteral stent. Dictated by: Dictated on workstation # [id number]
[2021-03-05] MEDS ORDERED: MIDAZOLAM 2 MG/2 ML (VERSED) VIAL ONE (08:13)
--- NOTE | 2021-03-05 08:22 | Progress Note-Post Operative ---
Post-Operative Progess Note Surgeon (s)/Track Supervisor (s) Surgeon RAOUL PATEL MD Track Supervisor: NONE Pre-Operative Diagnosis LT PROXIMAL URETERAL AND RENAL STONES Post-Operative Diagnosis SAME Procedure & Operative Findings Date of Procedure 03/05/21 Procedure Performed/Findings LT ESWL Anesthesia Type GENERAL Estimated Blood Loss Estimated blood loss (mL): NONE Specimens/Packing Specimens Removed NONE Packing: NONE RAOUL PATEL MD Mar 05, 2021 08:22
--- NOTE | 2021-03-05 08:26 | Discharge Inst-Urology ---
Discharge Inst-Urology Reconcile Patient Problems Problems Reviewed?: Yes Final Diagnosis LT PROXIMAL URETERAL AND LT RENAL STONES Patient Instructions/Follow Up Plan/Assessment/Instructions Please make appointment to been seen in office Sunday 03/18, KUB prior to it. KUB on way home Post ESWL instructions Increase oral fluids for 48 hours and then as needed. Diet and Activity as tolerated. If questions or concerns contact your physician Or seek help at emergency department. RAOUL PATEL MD Mar 05, 2021 08:26
--- NOTE | 2021-03-05 08:44 | Progress Note-Post Operative ---
Post-Operative Progess Note Surgeon (s)/Elementary School Science Teacher (s) Surgeon RAOUL PATEL MD Elementary School Science Teacher: NONE Pre-Operative Diagnosis LT PROXIMAL URETERAL AND RENAL STONES Post-Operative Diagnosis SAME Procedure & Operative Findings Date of Procedure 03/05/21 Procedure Performed/Findings LT ESWL Anesthesia Type GENERAL Estimated Blood Loss Estimated blood loss (mL): NONE Specimens/Packing Specimens Removed NONE Packing: NONE RAOUL PATEL MD Mar 05, 2021 08:44
[2021-03-05] MEDS ORDERED: FUROSEMIDE 40 MG/4 ML INJ (LASIX) ONE (08:49)
[2021-03-05] MEDS ORDERED: KETOROLAC 30 MG/ML VIAL ONE (08:49)
[2021-03-05] MEDS ORDERED: SEVOFLURANE (ULTANE) 15 ML INHAL SOLN ONE (08:50)
[2021-03-05] MEDS ORDERED: MEPERIDINE (DEMEROL) INJ 50 MG/ML IVP ONE (09:15)
[2021-03-05] MEDS ORDERED: ONDANSETRON 4 MG/2 ML (SDV) Z0FRAN IVP PRN (09:15)
[2021-03-05] MEDS ORDERED: fentaNYL INJ 100 MCG/2 ML AMP IVP ONE (09:15)
[2021-03-05] MEDS ORDERED: morphine INJ 10 MG/ML 1ML (SYR OR VIAL) IVP ONE (09:15)
[2021-03-05] MEDS ORDERED: NITR-65 PO (10:27)
[2021-03-05] MEDS ORDERED: TMSL.4C PO (10:27)
--- NOTE | 2021-03-05 12:35 | Anesthesia-General Post-Op ---
General Patient Condition Mental Status/LOC: Same as Preop Cardiovascular: Satisfactory Nausea/Vomiting: Absent Respiratory: Satisfactory Pain: Controlled Complications: Absent Post Op Complications Complications None Follow Up Care/Instructions Patient Instructions None needed. Anesthesia/Patient Condition Patient Condition Patient is doing well, no complaints, stable vital signs, no apparent adverse anesthesia problems. No complications reported per nursing. CYNTHIA BENTON CRNA Mar 05, 2021 12:35
--- NOTE | 2021-03-05 13:07 | OPERATIVE REPORT ---
DATE OF SERVICE: 03/05/2021 PREOPERATIVE DIAGNOSIS: Left proximal ureteral and left renal stones. POSTOPERATIVE DIAGNOSIS: Left proximal ureteral and left renal stones. OPERATION PERFORMED: Left ESWL. SURGEON: Landon Patel MD ANESTHESIA: General. COMPLICATIONS: None. DESCRIPTION OF PROCEDURE: Under satisfactory general anesthesia, the patient in supine position, we first localized the left to proximal ureteral stone that had moved from the kidney down in the proximal ureter. We delivered shocks at kV of 6, a total of 3000 shocks looked to have fragmented the stones nicely. We will give the patient 40 mg of Lasix and 30 mg of Toradol IV at the end of the procedure. He tolerated the procedure and anesthesia well and was sent to recovery room in stable condition. PLAN: We will see him back in 2 weeks and probably do the ESWL for the kidney as well as any residual fragments in the proximal ureter. Job ID: [id number] DocumentID: [id number] Dictated Date: 03/05/2021 08:48:04 Compensation Programs Manager Date: 03/05/2021 13:07:03 Dictated By: LANDON PATEL MD
--- NOTE | 2021-03-05 15:23 | Diagnostic Imaging Report ---
INDICATION: Ureteral stone. Status post lithotripsy. COMPARISON: 03/05/2021 at 6:36 AM. FINDINGS: Stable position of the left nephroureteral stent. The 2 adjacent 4 to 5 mm stones in the proximal right ureter are unchanged. The 4 mm stone in the lower pole of the left kidney is unchanged. Nonobstructive bowel gas pattern. Stable regional skeleton. IMPRESSION: 1. Stable position and appearance of the left renal and ureteral stones. Dictated by: Dictated on workstation # [id number]
== END 2021-03-05 11:00 ==
LOC: SDC 06:01
PROVIDERS: ATTEND Urology
DX: N20.2 Calculus of kidney with calculus of ureter (principal); G47.33 Obstructive sleep apnea (adult) (pediatric); E66.01 Morbid (severe) obesity due to excess calories; Z68.42 Body mass index [BMI] 45.0-49.9, adult; Z79.899 Other long term (current) drug therapy
CPT/HCPCS: 74018; 87081

== ENCOUNTER 2021-03-18 06:19 | Outpatient (CLI) | payer MEDICARE ==
[~2021-03-18 06:19] MED LIST changes: -KETO10TA PO
[2021-03-19] MEDS ORDERED: KETO10TA PO (14:22)
== END 2021-03-18 15:42 | disposition home or self-care (01) ==
LOC: PREOP 06:19
PROVIDERS: ATTEND Urology
DX: Z01.818 Encounter for other preprocedural examination (principal)

== ENCOUNTER → 2021-03-18 | Outpatient (CLI) | payer MEDICARE ==
[~2021-03-18] MED LIST changes: +KETO10TA PO; +NITR-65 PO; +TMSL.4C PO
--- NOTE | 2021-03-18 14:12 | Diagnostic Imaging Report ---
INDICATION: Nephrolithiasis. Single supine image of the abdomen is obtained with comparison made to study of 03/05/2021. Double-J left nephroureteral stent is in place with similar position to previous study. There are three calculi projecting over the lower pole of the left kidney measuring up to 0.6 cm in diameter. There is no evidence of stone along the course of either ureter. No free intraperitoneal gas or pneumatosis is seen. IMPRESSION: Several nonobstructing stones are seen in the lower pole of the left kidney without definite calculus along the course of either ureter. Dictated by: Dictated on workstation # [id number]
== END ==
LOC: RAD 13:04
PROVIDERS: ATTEND Urology
DX: N20.0 Calculus of kidney (principal)
CPT/HCPCS: 74018

== ENCOUNTER 2021-03-19 08:49 | Day surgery (SDC) | payer MEDICARE ==
[~2021-03-19] VITALS: Ht 157 cm; Wt 122.8 kg
[2021-03-19] VITALS (11 sets, daily range): BP systolic 120–150; BP diastolic 65–78
[2021-03-19] MEDS ORDERED: cefTRIAXone 1,000 MG in WATER (STERILE) FOR INJECTION 10 ML IV ONE (09:15)
[2021-03-19] MEDS ORDERED: LACTATED RINGERS 1,000 ML IV PRN (09:15)
--- NOTE | 2021-03-19 09:21 | Progress Note-Pre Operative ---
Pre-Operative Progress Note H&P Reviewed The H&P was reviewed, patient examined and no changes noted. Date Seen by Provider: Mar 19, 2021 Time Seen by Provider: :21 Date H&P Reviewed: Mar 19, 2021 Time H&P Reviewed: 09:21 Pre-Operative Diagnosis: LT RENAL STONES RAOUL PATEL MD Mar 19, 2021 09:21
--- NOTE | 2021-03-19 10:06 | Diagnostic Imaging Report ---
INDICATION: Nephrolithiasis KUB 9:34 AM There is a left double-J ureteral stent. There are 2 calculi project over the inferior pole of left kidney. IMPRESSION: Left nephrolithiasis Dictated by: Dictated on workstation # [id number]
--- NOTE | 2021-03-19 11:16 | Progress Note-Post Operative ---
Post-Operative Progess Note Surgeon (s)/Music Leader (s) Surgeon RAOUL PATEL MD Music Leader: NONE Pre-Operative Diagnosis LT RENAL STONES Post-Operative Diagnosis SAME Procedure & Operative Findings Date of Procedure 03/19/21 Procedure Performed/Findings LT ESWL Anesthesia Type GENERAL Estimated Blood Loss Estimated blood loss (mL): NONE Specimens/Packing Specimens Removed NONE Packing: NONE RAOUL PATEL MD Mar 19, 2021 11:15
--- NOTE | 2021-03-19 11:17 | Discharge Inst-Urology ---
Discharge Inst-Urology Reconcile Patient Problems Problems Reviewed?: Yes Final Diagnosis LT RENAL STONES Patient Instructions/Follow Up Plan/Assessment/Instructions Please make appointment to been seen in office in 2 weeks, KUB prior to it. KUB on way home Post ESWL instructions Stay off ASA Increase oral fluids for 48 hours and then as needed. Diet and Activity as tolerated. If questions or concerns contact your physician Or seek help at emergency department. RAOUL PATEL MD Mar 19, 2021 11:17
[2021-03-19] MEDS ORDERED: proPOfol 200 MG/20 ML (DIPRIVAN) VIAL IV ONE (11:42)
[2021-03-19] MEDS ORDERED: KETOROLAC 30 MG/ML VIAL ONE (11:42)
[2021-03-19] MEDS ORDERED: ONDANSETRON 4 MG/2 ML (SDV) Z0FRAN ONE (11:42)
[2021-03-19] MEDS ORDERED: LIDOCAINE PF 2% 5 ML (XYLOCAINE) VIAL ONE (11:42)
[2021-03-19] MEDS ORDERED: fentaNYL INJ 100 MCG/2 ML AMP ONE (11:42)
[2021-03-19] MEDS ORDERED: MIDAZOLAM 2 MG/2 ML (VERSED) VIAL ONE (11:43)
[2021-03-19] MEDS ORDERED: FUROSEMIDE 40 MG/4 ML INJ (LASIX) ONE (11:45)
[2021-03-19] MEDS ORDERED: SEVOFLURANE (ULTANE) 15 ML INHAL SOLN ONE (12:34)
[2021-03-19] MEDS ORDERED: ONDANSETRON 4 MG/2 ML (SDV) Z0FRAN IVP PRN (12:45)
[2021-03-19] MEDS ORDERED: MEPERIDINE (DEMEROL) INJ 50 MG/ML IVP ONE (12:45)
[2021-03-19] MEDS ORDERED: morphine INJ 10 MG/ML 1ML (SYR OR VIAL) IVP ONE (12:45)
--- NOTE | 2021-03-19 13:29 | Anesthesia-General Post-Op ---
General Patient Condition Mental Status/LOC: Same as Preop Cardiovascular: Satisfactory Nausea/Vomiting: Absent Respiratory: Satisfactory Pain: Controlled Complications: Absent Post Op Complications Complications None Follow Up Care/Instructions Patient Instructions None needed. Anesthesia/Patient Condition Patient Condition Patient is doing well, no complaints, stable vital signs, no apparent adverse anesthesia problems. No complications reported per nursing. [place] [facility] Yes JESSICA KAPOOR CRNA Mar 19, 2021 13:29
--- NOTE | 2021-03-19 14:21 | Diagnostic Imaging Report ---
INDICATION: Left nephrolithiasis. KUB at 2:02 p.m. Left double-J ureteral stent remains in place. Left renal calculi appear unchanged. Bowel gas pattern is normal. IMPRESSION: Stable abdomen. Dictated by: Dictated on workstation # [id number]
[2021-03-19] MEDS ORDERED: KETO10TA PO (14:22)
--- NOTE | 2021-03-19 14:48 | OPERATIVE REPORT ---
DATE OF SERVICE: 03/19/2021 PREOPERATIVE DIAGNOSIS: Left renal stones. POSTOPERATIVE DIAGNOSIS: Left renal stones. OPERATION PERFORMED: Left ESWL. SURGEON: Landon Patel MD. ANESTHESIA: General. COMPLICATIONS: None. DESCRIPTION OF PROCEDURE: Under satisfactory general anesthesia, the patient in supine position on the ESWL table, the left renal stones were localized. Shocks were delivered at kV of 6, a total of 3000 shocks were delivered. There was good fragmentation of the stone. The patient received 40 mg of Lasix and 30 mg of Toradol IV at the end of the procedure. He tolerated the procedure and anesthesia well and was sent to recovery room in stable condition. Job ID: [id number] DocumentID: [id number] Dictated Date: 03/19/2021 12:16:46 Woven Wood Shade Assembler Date: 03/19/2021 14:28:18 Dictated By: LANDON PATEL MD
== END 2021-03-19 14:40 | disposition home or self-care (01) ==
LOC: SDC 08:49
PROVIDERS: ATTEND Urology
DX: N20.0 Calculus of kidney (principal); G47.33 Obstructive sleep apnea (adult) (pediatric); E66.01 Morbid (severe) obesity due to excess calories; Z68.42 Body mass index [BMI] 45.0-49.9, adult; Z79.899 Other long term (current) drug therapy
CPT/HCPCS: 74018; 87081

== ENCOUNTER → 2021-04-02 | Outpatient (CLI) | payer MEDICARE ==
[~2021-04-02] MED LIST changes: +KETO10TA PO
--- NOTE | 2021-04-02 14:45 | Diagnostic Imaging Report ---
INDICATION: Nephrolithiasis. COMPARISON 03/19/2021. FINDINGS: Double-J stent is in good position on the left. This has not changed significantly since the previous exam. One of the 3 stones has moved from the inferior calyx of the left kidney and is now in the proximal left ureter overlying the stent. No calculi are seen on the right. IMPRESSION: 1. Double-J stent remains in good position. 2. One of the calculi has moved into the proximal ureter. This measures approximately 6 mm. Dictated by: Dictated on workstation # [id number]
== END ==
LOC: RAD 13:34
PROVIDERS: ATTEND Urology
DX: N20.2 Calculus of kidney with calculus of ureter (principal)
CPT/HCPCS: 74018

== ENCOUNTER → 2021-04-08 | Outpatient (CLI) | payer MEDICARE ==
--- NOTE | 2021-04-08 17:25 | Diagnostic Imaging Report ---
INDICATION: History of calculi. Previous stent placement. COMPARISON: 04/02/2021 FINDINGS: Two supine radiographic views of the abdomen were obtained. Left-sided double-J ureteral stent has since been removed. Extraosseous calcifications are again noted projecting over the inferior pole of the left kidney. No other unexpected extraosseous calcifications or radiopaque foreign bodies are identified. Small bowel loops are nondistended. There is no large collection of free intraperitoneal air. Age-related degenerative changes of the lumbar spine are present. IMPRESSION: 1. Redemonstration of left-sided nephrolithiasis. 2. Nonobstructed small bowel gas pattern. Dictated by: Dictated on workstation # [id number]
== END ==
LOC: RAD 16:20
PROVIDERS: ATTEND Urology
DX: N20.0 Calculus of kidney (principal)
CPT/HCPCS: 74018

== ENCOUNTER 2022-02-13 18:08 | Observation (INO) | payer MEDICARE ==
[~2022-02-13] VITALS: Ht 175 cm; Wt 132.7 kg
[~2022-02-13 18:08] MED LIST changes: -TRIA1CAP4 PO; +TRIA1CAP84 PO
[2022-02-13] MEDS ORDERED: TETANUS,DIPTH,PERTUSS P/F (BOOSTRIX) 0.5 ML VIAL IM ONE (18:15)
[2022-02-13] MEDS ORDERED: NS IV 1000 ML 1,000 ML IV SCH (18:15)
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
[2022-02-13 18:26] LABS: HEMATOCRIT 39 % (40-54); HEMOGLOBIN 12.4 g/dL (13.3-17.7); MEAN CORPUSCULAR HEMOGLOBIN 30 pg (25-34); MEAN CORPUSCULAR HGB CONC 32 g/dL (32-36); MEAN CORPUSCULAR VOLUME 95 fL (80-99); MEAN PLATELET VOLUME 10.9 fL (9.0-12.2); PLATELET COUNT 188 10^3/uL (130-400); WHITE BLOOD COUNT 6.3 10^3/uL (4.3-11.0)
[2022-02-13] MEDS ORDERED: fentaNYL INJ 100 MCG/2 ML AMP IVP ONE ×2 (18:30→19:45)
[2022-02-13 18:31] LABS: ALBUMIN 3.7 GM/DL (3.2-4.5)
[2022-02-13 18:37] LABS: BILIRUBIN,TOTAL 0.5 MG/DL (0.1-1.0); CREATININE SERUM 1.76 MG/DL (0.60-1.30); TOTAL PROTEIN 7.5 GM/DL (6.4-8.2)
[2022-02-13 18:42] LABS: BILIRUBIN,DIRECT 0.1 MG/DL (0.0-0.3); BILIRUBIN,INDIRECT 0.4 MG/DL
[2022-02-13] MEDS ORDERED: IOHEXOL 350 MG/ML 100 ML (OMNIPAQUE 350) VIAL IV ONE (18:45)
[2022-02-13] MEDS ORDERED: HOLD METFORMIN - RECEIVED CONTRAST 20 ML VIAL IV SCH (18:45)
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
[2022-02-13] MEDS ORDERED: amLODIPine 5 MG (NORVASC) TAB PO ONE (21:15)
[2022-02-13] MEDS ORDERED: ONDANSETRON 4 MG (ZOFRAN) ORAL DISSOLVE TAB PO PRN (21:15)
[2022-02-13] MEDS ORDERED: cloNIDine 0.1 MG (CATAPRES) TAB PO PRN (21:15)
[2022-02-13] MEDS ORDERED: ACETAMINOPHEN 325 MG TABLET PO PRN (21:15)
[2022-02-13] MEDS ORDERED: CALCIUM CARBONATE 500 MG (TUMS) TAB.CHEW PO PRN (21:15)
[2022-02-13] MEDS ORDERED: polyethylene glycoL POWDER 17 GM (MIRALAX) PACK PO PRN (21:15)
[2022-02-13] MEDS ORDERED: LACTULOSE SYRUP 10GM/15ML (ENULOSE) 30ML UDC PO PRN (21:15)
[2022-02-13] MEDS ORDERED: diphenhydrAMINE 25 MG TAB (BENADRYL) PO PRN (21:15)
[2022-02-13] MEDS ORDERED: BISACODYL 10 MG SUPP (DULCOLAX) PR PRN (21:15)
[2022-02-13] MEDS ORDERED: ANTACID SUSP 30 ML UDC (MYLANTA) PO PRN (21:15)
[2022-02-13] MEDS ORDERED: MELATONIN 3 MG TABLET PO PRN (21:15)
[2022-02-13] MEDS ORDERED: diphenhydrAMINE 50 MG/ML INJ (BENADRYL) IVP PRN (21:15)
[2022-02-13] MEDS ORDERED: MILK OF MAGNESIA 400 MG/5 ML 30 ML UDC PO PRN (21:15)
[2022-02-13] MEDS ORDERED: ONDANSETRON 4 MG/2 ML (SDV) Z0FRAN IV PRN (21:15)
[2022-02-13 21:31] VITALS: BP 183/82
[2022-02-13] MEDS ORDERED: amLODIPine 5 MG (NORVASC) TAB ONE (21:59)
[2022-02-13] MEDS ORDERED: morphine INJ 4 MG/ML 1 ML (VIAL/SYRINGE) IVP PRN (22:00)
[2022-02-13 23:09] VITALS: BP 180/83
[2022-02-13] MEDS ORDERED: cloNIDine 0.1 MG (CATAPRES) TAB ONE (23:13)
[2022-02-13] MEDS ORDERED: morphine INJ 4 MG/ML 1 ML (VIAL/SYRINGE) ONE (23:14)
[2022-02-13 23:49] VITALS: BP 157/70
[2022-02-14 03:22] VITALS: BP 138/67
[2022-02-14 05:48] LABS: BASOPHILS # (AUTO) 0.1 10^3/uL (0.0-0.1); BASOPHILS % (AUTO) 1 % (0-10); EOSINOPHILS # (AUTO) 0.1 10^3/uL (0.0-0.3); EOSINOPHILS % (AUTO) 3 % (0-10); HEMATOCRIT 35 % (40-54); HEMOGLOBIN 11.3 g/dL (13.3-17.7); LYMPHOCYTES # (AUTO) 1.1 10^3/uL (1.0-4.0); LYMPHOCYTES % (AUTO) 21 % (12-44); MEAN CORPUSCULAR HEMOGLOBIN 30 pg (25-34); MEAN CORPUSCULAR HGB CONC 32 g/dL (32-36); MEAN CORPUSCULAR VOLUME 94 fL (80-99); MEAN PLATELET VOLUME 10.3 fL (9.0-12.2); MONOCYTES # (AUTO) 0.5 10^3/uL (0.0-1.0); MONOCYTES % (AUTO) 10 % (0-12); NEUTROPHILS # (AUTO) 3.4 10^3/uL (1.8-7.8); NEUTROPHILS % (AUTO) 66 % (42-75); PLATELET COUNT 165 10^3/uL (130-400); WHITE BLOOD COUNT 5.2 10^3/uL (4.3-11.0)
[2022-02-14 06:10] LABS: ALBUMIN 3.2 GM/DL (3.2-4.5); POTASSIUM 4.3 MMOL/L (3.6-5.0)
[2022-02-14 06:11] LABS: CALCIUM 8.7 MG/DL (8.5-10.1)
[2022-02-14 06:12] LABS: TOTAL PROTEIN 6.1 GM/DL (6.4-8.2)
[2022-02-14 06:14] LABS: BILIRUBIN,TOTAL 0.5 MG/DL (0.1-1.0)
[2022-02-14 06:16] LABS: CREATININE SERUM 1.46 MG/DL (0.60-1.30)
[2022-02-14 08:01] VITALS: BP 150/76
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
[2022-02-14] MEDS ORDERED: SENNOSIDES 8.6 MG (SENOKOT) TAB PO SCH (09:00)
[2022-02-14] MEDS ORDERED: FINASTERIDE (PROSCAR) 5 MG TAB PO SCH (09:00)
[2022-02-14] MEDS ORDERED: DOCUSATE SODIUM 100 MG (COLACE) CAP PO SCH (09:00)
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
[2022-02-14] MEDS ORDERED: MELO7.5T46 PO (12:21)
[2022-02-14] MEDS ORDERED: FLUT16SP22 NSEACH (12:21)
[2022-02-14 13:36] VITALS: BP 150/76
[2022-02-14] MEDS ORDERED: TAMSULOSIN 0.4 MG (FLOMAX) CAP PO SCH (18:00)
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
== END 2022-02-14 13:35 ==
LOC: EDUNIT# 18:08 → ER 18:10 → 4TH 19:45
PROVIDERS: ADMIT Internal Medicine; ATTEND Internal Medicine
DX: S00.03XA Contusion of scalp, initial encounter (principal); S09.90XA Unspecified injury of head, initial encounter; N18.9 Chronic kidney disease, unspecified; V89.2XXA Person injured in unspecified motor-vehicle accident, traffic, initial encounter; E66.01 Morbid (severe) obesity due to excess calories; Z68.42 Body mass index [BMI] 45.0-49.9, adult
CPT/HCPCS: 70450; 71045; 71260; 72125; 73060; 73090; 73110; 74177; 80048; 80053; 80076; 85025; 85027; 93005; 93041; 96375; 97161; 97166; 99291; 99292; G0378; G0390; 36415; 90471; 90715; 96361; 96374; 96376

== ENCOUNTER 2022-02-14 11:40 | Inpatient (IN) | payer MEDICARE ==
[~2022-02-14] VITALS: Ht 175 cm; Wt 130.1 kg
[2022-02-14] MEDS ORDERED: FLUT16SP22 NSEACH (12:21)
[2022-02-14] MEDS ORDERED: MELO7.5T46 PO (12:21)
[2022-02-14 13:35] VITALS: BP 163/78
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
[2022-02-14] MEDS ORDERED: ALPRAZolam 0.25 MG (XANAX) TAB PO PRN (15:00)
[2022-02-14] MEDS ORDERED: LACTULOSE SYRUP 10GM/15ML (ENULOSE) 30ML UDC PO PRN (15:00)
[2022-02-14] MEDS ORDERED: BISACODYL 10 MG SUPP (DULCOLAX) PR PRN (15:00)
[2022-02-14] MEDS ORDERED: MELATONIN 3 MG TABLET PO PRN (15:00)
[2022-02-14] MEDS ORDERED: LOPERAMIDE 2 MG (IMODIUM) TABLET PO PRN (15:00)
[2022-02-14] MEDS ORDERED: FLEET ENEMA ADULT 1 EA BTL PR PRN (15:00)
[2022-02-14] MEDS ORDERED: CALCIUM CARBONATE 500 MG (TUMS) TAB.CHEW PO PRN (15:00)
[2022-02-14] MEDS ORDERED: [UNRECOGNIZED DRUG - REMARK] PO PRN (15:00)
[2022-02-14] MEDS ORDERED: ACETAMINOPHEN 325 MG TABLET PO PRN (15:00)
[2022-02-14] MEDS ORDERED: ONDANSETRON 4 MG (ZOFRAN) ORAL DISSOLVE TAB PO PRN (15:00)
[2022-02-14] MEDS ORDERED: diphenhydrAMINE 25 MG TAB (BENADRYL) PO PRN (15:00)
[2022-02-14] MEDS ORDERED: morphine INJ 4 MG/ML 1 ML (VIAL/SYRINGE) IV PRN (15:00)
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
[2022-02-14] MEDS ORDERED: IBUPROFEN TABLET 200 MG TAB PO PRN (15:30)
[2022-02-14] MEDS: ENOXAPARIN 40 MG/0.4 ML (LOVENOX) SYR SC SCH (15:54)
[2022-02-14] MEDS: HYDROcodone/APAP 7.5 MG/325 MG (LORTAB, LORCET PLUS) TABLET PO PRN (15:54)
[2022-02-14] MEDS ORDERED: IBUPROFEN TABLET 200 MG TAB PO SCH (18:00)
[2022-02-14] MEDS: DOCUSATE SODIUM 100 MG (COLACE) CAP PO SCH (19:45)
[2022-02-14] MEDS: polyethylene glycoL POWDER 17 GM (MIRALAX) PACK PO SCH (19:45)
[2022-02-14 19:46] VITALS: BP 116/56
[2022-02-14] MEDS: SENNA W/DOCUSATE (SENOKOT S) TABLET PO SCH (19:46)
[2022-02-14] MEDS: FINASTERIDE (PROSCAR) 5 MG TAB PO SCH (20:20)
[2022-02-15 06:06] LABS: BASOPHILS % (AUTO) 1 % (0-10); EOSINOPHILS # (AUTO) 0.2 10^3/uL (0.0-0.3); EOSINOPHILS % (AUTO) 4 % (0-10); HEMATOCRIT 35 % (40-54); HEMOGLOBIN 11.2 g/dL (13.3-17.7); LYMPHOCYTES % (AUTO) 21 % (12-44); MEAN CORPUSCULAR HEMOGLOBIN 30 pg (25-34); MEAN CORPUSCULAR HGB CONC 32 g/dL (32-36); MEAN CORPUSCULAR VOLUME 95 fL (80-99); MEAN PLATELET VOLUME 10.9 fL (9.0-12.2); MONOCYTES # (AUTO) 0.5 10^3/uL (0.0-1.0); MONOCYTES % (AUTO) 11 % (0-12); NEUTROPHILS # (AUTO) 2.9 10^3/uL (1.8-7.8); NEUTROPHILS % (AUTO) 63 % (42-75); PLATELET COUNT 161 10^3/uL (130-400); WHITE BLOOD COUNT 4.6 10^3/uL (4.3-11.0)
[2022-02-15 06:38] LABS: ALBUMIN 3.3 GM/DL (3.2-4.5); POTASSIUM 4.4 MMOL/L (3.6-5.0)
[2022-02-15 06:39] LABS: CALCIUM 8.8 MG/DL (8.5-10.1)
[2022-02-15 06:40] LABS: TOTAL PROTEIN 6.3 GM/DL (6.4-8.2)
[2022-02-15 06:42] LABS: BILIRUBIN,TOTAL 0.4 MG/DL (0.1-1.0)
[2022-02-15 06:44] LABS: CREATININE SERUM 1.37 MG/DL (0.60-1.30)
[2022-02-15 08:30] VITALS: BP 122/64
[2022-02-15] MEDS: MELOXICAM 7.5 MG (MOBIC) TABLET PO SCH (09:18)
[2022-02-15] MEDS: SENNA W/DOCUSATE (SENOKOT S) TABLET PO SCH ×2 (09:18→20:08)
[2022-02-15] MEDS: MONTELUKAST 10 MG (SINGULAIR) TAB PO SCH (09:18)
[2022-02-15] MEDS: HYDROcodone/APAP 7.5 MG/325 MG (LORTAB, LORCET PLUS) TABLET PO PRN ×2 (09:19→15:24)
[2022-02-15] MEDS: polyethylene glycoL POWDER 17 GM (MIRALAX) PACK PO SCH ×2 (09:19→19:22)
[2022-02-15] MEDS: DOCUSATE SODIUM 100 MG (COLACE) CAP PO SCH ×2 (09:19→19:21)
--- NOTE | 2022-02-15 10:09 | Physical Therapy Daily Note ---
PT Daily Note-Current Subjective Patient in recliner pre tx, agrees to PT, has 5/10 pain in various places including the back of his head. Appearance Patient in recliner post tx with nurse call, phone, tray, all needs met. Mental Status Patient Orientation: Person, Place, Situation Transfers SCALE: Activities may be completed with or without assistive devices. 8-Pwgqtbggdh-jvyhzum completes the activity by him/herself with no assistance from a helper. 5-Set-up or Clean-up Assistance-helper sets up or cleans up; patient completes activity. [place] assists only prior to or following the activity. 4-Supervision or Touching Assistance-helper provides verbal cues and/or touching/steadying and/or contact guard assistance as patient completes activity. Assistance may be provided throughout the activity or intermittently. 3-Partial/Moderate Assistance-helper does LESS THAN HALF the effort. [place] lifts, holds or supports trunk or limbs, but provides less than half the effort. 2-Substantial/Maximal Assistance-helper does MORE THAN HALF the effort. [place] lifts or holds trunk or limbs and provides more than half the effort. 3-Enlzqkbcp-zmludf does ALL the effort. Patient does none of the effort to complete the activity. Or, the assistance of 2 or more helpers is required for the patient to complete the activity. If activity was not attempted, code reason: 7-Patient Refused. 9-Not Applicable-not attempted and the patient did not perform the activity before the current illness, exacerbation or injury. 10-Not Attempted due to Environmental Limitations-(lack of equipment, weather restraints, etc.). 88-Not Attempted due to Medical Conditions or Safety Concerns. Sit to Stand (QC): 4 Patient has a little difficulty standing from lower surfaces but can do it with just SBA Gait Training Distance: 300' Walk 10 feet (QC): 4 Walk 50 ft with 2 Turns(QC): 4 Walk 150 ft (QC): 4 Gait Persons Needed: 1 Gait Assistive Device: FWW very slow ambulation, tends to lean fairly heavily on the walker, steady though, SBA Treatments transfers, ambulation Assessment Current Status: Fair Progress improving endurance PT Short Term Goals Short Term Goals Time Frame: Feb 21, 2022 Roll Left & Right: 6 Sit to lyin Lying to sitting on side of be: 4 Sit to stand: 5 Chair/uol-rs-ofthv transfer: 5 Walk 10 feet: 5 Walk 50 feet with two turns: 5 Walk 150 feet: 5 PT [facility] Goals [facility] Goals PT Bathhouse Attendant Goals Time Frame: Mar 07, 2022 Roll Left & Right (QC): 6 Sit to Lying (QC): 6 Lying-Sitting on Side/Bed(QC): 6 Sit to Stand (QC): 6 Chair/Lii-uq-Lvvhg Xfer(QC): 6 Toilet Transfer (QC): 6 Car Transfer (QC): 6 Does the Patient Walk: Yes Walk 10 feet (QC): 6 Walk 50ft with 2 Turns (QC): 6 Walk 150 ft (QC): 6 Walking 10ft on Uneven Surface: 6 1 Step (curb) (QC): 4 4 Steps (QC): 4 12 Steps (QC): 88 Picking up an Object (QC): 6 Wheel 50 feet with 2 turns (QC: 9 Wheel 150 feet: 9 PT Plan Problem List Problem List: Activity Tolerance, Functional Strength, Safety, Balance, Gait, Transfer, Bed Mobility, ROM Treatment/Plan Treatment Plan: Continue Plan of Care Treatment Plan: Bed Mobility, Education, Functional Activity Corrine, Functional Strength, Group Therapy, Gait, Safety, Therapeutic Exercise, Transfers Treatment Duration: Mar 07, 2022 Frequency: At least 5 of 7 days/Wk (IRF) Estimated Hrs Per Day: 1.5 hours per day Patient and/or Family Agrees t: Yes Safety Risks/Education Patient Education: Gait Training, Transfer Techniques, Correct Positioning, Safety Issues Teaching Recipient: Patient Teaching Methods: Demonstration, Discussion Response to Teaching: Reinforcement Needed Time/GCodes Time In: 0950 Time Out: 1003 Total Billed Treatment Time: 13 Total Billed Treatment 1 visit GT 13' OTIS JACKSON PT Feb 15, 2022 10:09
[2022-02-15] MEDS: ENOXAPARIN 40 MG/0.4 ML (LOVENOX) SYR SC SCH (15:20)
[2022-02-15 19:25] VITALS: BP 126/81
[2022-02-15] MEDS: FINASTERIDE (PROSCAR) 5 MG TAB PO SCH (20:08)
[2022-02-16] MEDS: HYDROcodone/APAP 7.5 MG/325 MG (LORTAB, LORCET PLUS) TABLET PO PRN ×2 (06:04→19:02)
[2022-02-16 06:59] VITALS: BP 131/80
[2022-02-16 08:00] VITALS: BP 131/80
[2022-02-16] MEDS: polyethylene glycoL POWDER 17 GM (MIRALAX) PACK PO SCH ×2 (08:12→19:16)
[2022-02-16] MEDS: SENNA W/DOCUSATE (SENOKOT S) TABLET PO SCH ×2 (08:12→19:16)
[2022-02-16] MEDS: MONTELUKAST 10 MG (SINGULAIR) TAB PO SCH (08:12)
[2022-02-16] MEDS: DOCUSATE SODIUM 100 MG (COLACE) CAP PO SCH ×2 (08:12→19:16)
[2022-02-16] MEDS: MELOXICAM 7.5 MG (MOBIC) TABLET PO SCH (08:12)
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
[2022-02-16] MEDS: ENOXAPARIN 40 MG/0.4 ML (LOVENOX) SYR SC SCH (15:16)
[2022-02-16] MEDS: FINASTERIDE (PROSCAR) 5 MG TAB PO SCH (20:29)
[2022-02-16 20:42] VITALS: BP 135/81
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
[2022-02-17 07:29] VITALS: BP 167/83
[2022-02-17] MEDS: MONTELUKAST 10 MG (SINGULAIR) TAB PO SCH (07:47)
[2022-02-17] MEDS: MELOXICAM 7.5 MG (MOBIC) TABLET PO SCH (07:48)
[2022-02-17] MEDS: HYDROcodone/APAP 7.5 MG/325 MG (LORTAB, LORCET PLUS) TABLET PO PRN ×2 (07:48→21:49)
[2022-02-17] MEDS: SENNA W/DOCUSATE (SENOKOT S) TABLET PO SCH ×3 (07:48→22:32)
[2022-02-17] MEDS: polyethylene glycoL POWDER 17 GM (MIRALAX) PACK PO SCH ×2 (07:49→22:31)
[2022-02-17] MEDS: DOCUSATE SODIUM 100 MG (COLACE) CAP PO SCH ×2 (07:49→21:49)
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
[2022-02-17] MEDS ORDERED: amLODIPine 5 MG (NORVASC) TAB PO ONE (10:45)
--- NOTE | 2022-02-17 11:43 | Occupational Ther Daily Note ---
OT Current Status-Daily Note Subjective Pt states he is doing fine today and is agreeable to OT tx. Mental Status/Objective Patient Orientation: Normal For Age ADL-Treatment Therapy Code Descriptions/Definitions Functional [place] Measure: 0=Not Assessed/NA 4=Minimal Assistance 1=Total Assistance 5=Supervision or Setup 2=Maximal Assistance 6=Modified [place] 3=Moderate Assistance 7=Complete IndependenceSCALE: Activities may be completed with or without assistive devices. 6-Euewlxdsdn-lfdejfz completes the activity by him/herself with no assistance from a helper. 5-Set-up or Clean-up Assistance-helper sets up or cleans up; patient completes activity. [place] assists only prior to or following the activity. 4-Supervision or Touching Assistance-helper provides verbal cues and/or touching/steadying and/or contact guard assistance as patient completes activity. Assistance may be provided throughout the activity or intermittently. 3-Partial/Moderate Assistance-helper does LESS THAN HALF the effort. [place] lifts, holds or supports trunk or limbs, but provides less than half the effort. 2-Substantial/Maximal Assistance-helper does MORE THAN HALF the effort. [place] lifts or holds trunk or limbs and provides more than half the effort. 4-Msozadpqq-yaxozl does ALL the effort. Patient does none of the effort to complete the activity. Or, the assistance of 2 or more helpers is required for the patient to complete the activity. If activity was not attempted, code reason: 7-Patient Refused. 9-Not Applicable-not attempted and the patient did not perform the activity before the current illness, exacerbation or injury. 10-Not Attempted due to Environmental Limitations-(lack of equipment, weather restraints, etc.). 88-Not Attempted due to Medical Conditions or Safety Concerns. Shower/Bathe Self (QC): 5 (SBA) Upper Body Dressing (QC): 5 (CGA) Lower Body Dressing (QC): 5 (CGA) On/Off Footwear: 3 (ModA) Other Treatment Pt began tx sitting in recliner. Pt ambulated to shower bench with FWW to complete shower. Pt completed shower with SBA for safety precautions. Pt completed UB and LB dressing with CGA during standing to pull pants over bottom. Pt doffed and donned footwear with ModA to don socks over feet and to doff one sock due to limited mobility. Pt then stood and completed oral care and grooming at sink side at SBA for safety concerns concerning balance. Pt ambulated to therapy gym with FWW to complete 15min on armbike to increase activity tolerance and BUE strength. Pt then completed standing balance activity involving throwing grande bags and taking off bolts to increase activity tolerance, standing balance/tolerance and BUE strength. Upon finishing, pt ambulated back to room with FWW and sat in recliner. All ambulations completed with SBA. Pt in recliner at end of tx with family in room with call light in reach and all needs met. OT Short Term Goals Short Term Goals Time Frame: Feb 21, 2022 Eatin Oral hygiene: 5 Toileting hygiene: 4 Shower/bathe self: 4 Upper body dressin Lower body dressin Putting on/taking off footwear: 3 OT Customer Operations Manager Goals Retirement Goals Time Frame: Feb 27, 2022 Eating (QC): 6 Oral Hygiene (QC): 6 Toileting Hygiene (QC): 6 Shower/Bathe Self (QC): 5 Upper Body Dressing (QC): 6 Lower Body Dressing (QC): 6 On/Off Footwear (QC): 4 1=Demonstrate adherence to instructed precautions during ADL tasks. 2=Patient will verbalize/demonstrate understanding of assistive devices/modifications for ADL. 3=Patient will improve strength/tolerance for activity to enable patient to perform ADL's. OT Education/Plan Problem List/Assessment Assessment: Decreased Activ Tolerance, Decreased UE Strength, Impaired I ADL's, Impaired Self-Care Skills Discharge Recommendations Plan/Recommendations: Continue POC Treatment Plan/Plan of Care Patient would benefit from OT for education, treatment and training to promote independence in ADL's, mobility, safety and/or upper extremity function for ADL's. Plan of Care: ADL Retraining, Cognitive Retraining, Functional Mobility, Group Exercise/Act as Ind, UE Funct Exercise/Act Treatment Duration: Feb 27, 2022 Frequency: At least 5 of 7 days/Wk (IRF) Estimated Hrs Per Day: 1.5 hours per day (75-90 min/day ) Agreement: Yes Rehab Potential: Fair Time/GCodes Start Time: 07:45 Stop Time: 09:00 Total Time Billed (hr/min): 70 Billed Treatment Time 1 visit, 2 ADL (30min), 2 FA (25min), 1 EX (15min) Tressa Lopez Feb 17, 2022 11:43
--- NOTE | 2022-02-17 12:00 | Physical Therapy Daily Note ---
PT Daily Note-Current Subjective Pt sitting in recliner upon arrival. Pt agrees to PT. Mental Status Patient Orientation: Person, Place, Time, Situation Transfers SCALE: Activities may be completed with or without assistive devices. 8-Nchtcebgre-yfxcups completes the activity by him/herself with no assistance from a helper. 5-Set-up or Clean-up Assistance-helper sets up or cleans up; patient completes activity. [place] assists only prior to or following the activity. 4-Supervision or Touching Assistance-helper provides verbal cues and/or touching/steadying and/or contact guard assistance as patient completes activity. Assistance may be provided throughout the activity or intermittently. 3-Partial/Moderate Assistance-helper does LESS THAN HALF the effort. [place] lifts, holds or supports trunk or limbs, but provides less than half the effort. 2-Substantial/Maximal Assistance-helper does MORE THAN HALF the effort. [place] lifts or holds trunk or limbs and provides more than half the effort. 7-Lponzyiss-wthbmb does ALL the effort. Patient does none of the effort to complete the activity. Or, the assistance of 2 or more helpers is required for the patient to complete the activity. If activity was not attempted, code reason: 7-Patient Refused. 9-Not Applicable-not attempted and the patient did not perform the activity before the current illness, exacerbation or injury. 10-Not Attempted due to Environmental Limitations-(lack of equipment, weather restraints, etc.). 88-Not Attempted due to Medical Conditions or Safety Concerns. Sit to Stand (QC): 4 Weight Bearing Full Weight Bearing Full Weight Bearing Gait Training Does the Patient Walk?: Yes Distance: 75', 175', 250' Walk 10 feet (QC): 5 Walk 50 ft with 2 Turns(QC): 5 Walk 150 ft (QC): 5 Exercises Standing: Hip Abduction, Hamstring curls, Marching Standing Reps: 15 NuStep Minutes: 17 NuStep Workload: 4 Treatments TF from recliner to standing, declines need for BR and amb. in hallway. Pt uses NuStep followed by short RB then completes Standing EX at //bars. Pt amb. in hallway before returning to room to rest in recliner. Lunch arriving shortly, all needs met & call light in hand. Assessment Current Status: Good Progress Pt is improving w/amb. & mobility charissa. after FWW is raised. Pt working on activity tolerance & safety. PT Short Term Goals Short Term Goals Time Frame: Feb 21, 2022 Roll Left & Right: 6 Sit to lyin Lying to sitting on side of be: 4 Sit to stand: 5 Chair/ksb-po-glvqz transfer: 5 Walk 10 feet: 5 Walk 50 feet with two turns: 5 Walk 150 feet: 5 PT [facility]ci Goals Internal Recruiter Goals PT [facility] Goals Time Frame: Mar 07, 2022 Roll Left & Right (QC): 6 Sit to Lying (QC): 6 Lying-Sitting on Side/Bed(QC): 6 Sit to Stand (QC): 6 Chair/Qtg-al-Lbozg Xfer(QC): 6 Toilet Transfer (QC): 6 Car Transfer (QC): 6 Does the Patient Walk: Yes Walk 10 feet (QC): 6 Walk 50ft with 2 Turns (QC): 6 Walk 150 ft (QC): 6 Walking 10ft on Uneven Surface: 6 1 Step (curb) (QC): 4 4 Steps (QC): 4 12 Steps (QC): 88 Picking up an Object (QC): 6 Wheel 50 feet with 2 turns (QC: 9 Wheel 150 feet: 9 PT Plan Problem List Problem List: Activity Tolerance, Safety Treatment/Plan Treatment Plan: Continue Plan of Care Treatment Plan: Bed Mobility, Education, Functional Activity Corrine, Functional Strength, Group Therapy, Gait, Safety, Therapeutic Exercise, Transfers Treatment Duration: Mar 07, 2022 Frequency: At least 5 of 7 days/Wk (IRF) Estimated Hrs Per Day: 1.5 hours per day Patient and/or Family Agrees t: Yes Safety Risks/Education Patient Education: Safety Issues Teaching Recipient: Patient Teaching Methods: Discussion Response to Teaching: Verbalize Understanding Time/GCodes Time In: 1100 Time Out: 1200 Total Billed Treatment Time: 60 Total Billed Treatment 1, GT x2 (30m) & EX x2 (30m) CAMERON DE ANDA PTA Feb 17, 2022 12:00
--- NOTE | 2022-02-17 14:28 | Physical Therapy Daily Note ---
PT Daily Note-Current Subjective Pt sitting in recliner upon arrival. Pt agrees to PT. Mental Status Patient Orientation: Person, Place, Time, Situation Transfers SCALE: Activities may be completed with or without assistive devices. 5-Qxjhbzoqgh-ygawyvx completes the activity by him/herself with no assistance from a helper. 5-Set-up or Clean-up Assistance-helper sets up or cleans up; patient completes activity. [place] assists only prior to or following the activity. 4-Supervision or Touching Assistance-helper provides verbal cues and/or touching/steadying and/or contact guard assistance as patient completes activity. Assistance may be provided throughout the activity or intermittently. 3-Partial/Moderate Assistance-helper does LESS THAN HALF the effort. [place] lifts, holds or supports trunk or limbs, but provides less than half the effort. 2-Substantial/Maximal Assistance-helper does MORE THAN HALF the effort. [place] lifts or holds trunk or limbs and provides more than half the effort. 5-Sofvebqdq-eexuuv does ALL the effort. Patient does none of the effort to complete the activity. Or, the assistance of 2 or more helpers is required for the patient to complete the activity. If activity was not attempted, code reason: 7-Patient Refused. 9-Not Applicable-not attempted and the patient did not perform the activity before the current illness, exacerbation or injury. 10-Not Attempted due to Environmental Limitations-(lack of equipment, weather restraints, etc.). 88-Not Attempted due to Medical Conditions or Safety Concerns. Sit to Stand (QC): 5 Toilet Transfer (QC): 5 Weight Bearing Full Weight Bearing Full Weight Bearing Gait Training Does the Patient Walk?: Yes Distance: 175', 225' Walk 10 feet (QC): 5 Walk 50 ft with 2 Turns(QC): 5 Walk 150 ft (QC): 4 Gait Assistive Device: FWW VC for staying closer to FWW Treatments Pt asks to use BR to start tx. Pt finishes and is able to complete pericare. Pt amb. in hallway before returning to room to rest in recliner. All needs met, call light in hand. PT Short Term Goals Short Term Goals Time Frame: Feb 21, 2022 Roll Left & Right: 6 Sit to lyin Lying to sitting on side of be: 4 Sit to stand: 5 Chair/nll-vw-cpwuq transfer: 5 Walk 10 feet: 5 Walk 50 feet with two turns: 5 Walk 150 feet: 5 PT Jail Goals Jail Goals PT Jail Goals Time Frame: Mar 07, 2022 Roll Left & Right (QC): 6 Sit to Lying (QC): 6 Lying-Sitting on Side/Bed(QC): 6 Sit to Stand (QC): 6 Chair/Jgl-ue-Ijrbd Xfer(QC): 6 Toilet Transfer (QC): 6 Car Transfer (QC): 6 Does the Patient Walk: Yes Walk 10 feet (QC): 6 Walk 50ft with 2 Turns (QC): 6 Walk 150 ft (QC): 6 Walking 10ft on Uneven Surface: 6 1 Step (curb) (QC): 4 4 Steps (QC): 4 12 Steps (QC): 88 Picking up an Object (QC): 6 Wheel 50 feet with 2 turns (QC: 9 Wheel 150 feet: 9 PT Plan Problem List Problem List: Activity Tolerance Treatment/Plan Treatment Plan: Continue Plan of Care Treatment Plan: Bed Mobility, Education, Functional Activity Corrine, Functional Strength, Group Therapy, Gait, Safety, Therapeutic Exercise, Transfers Treatment Duration: Mar 07, 2022 Frequency: At least 5 of 7 days/Wk (IRF) Estimated Hrs Per Day: 1.5 hours per day Patient and/or Family Agrees t: Yes Safety Risks/Education Patient Education: Gait Training Teaching Recipient: Patient Teaching Methods: Discussion Response to Teaching: Verbalize Understanding Time/GCodes Time In: 1330 Time Out: 1400 Total Billed Treatment Time: 30 Total Billed Treatment 1, FA (10m) & GT (20m) CAMERON DE ANDA LAB INTERN Feb 17, 2022 14:28
[2022-02-17] MEDS: ENOXAPARIN 40 MG/0.4 ML (LOVENOX) SYR SC SCH (15:03)
[2022-02-17 20:00] VITALS: BP 121/55
[2022-02-17] MEDS: FINASTERIDE (PROSCAR) 5 MG TAB PO SCH (21:48)
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
[2022-02-18 07:28] VITALS: BP 121/60
[2022-02-18] MEDS: MONTELUKAST 10 MG (SINGULAIR) TAB PO SCH (07:50)
[2022-02-18] MEDS: HYDROcodone/APAP 7.5 MG/325 MG (LORTAB, LORCET PLUS) TABLET PO PRN ×2 (07:50→21:39)
[2022-02-18] MEDS: amLODIPine 5 MG (NORVASC) TAB PO SCH (07:50)
[2022-02-18] MEDS: DOCUSATE SODIUM 100 MG (COLACE) CAP PO SCH ×2 (07:51→21:48)
[2022-02-18] MEDS: MELOXICAM 7.5 MG (MOBIC) TABLET PO SCH (07:51)
[2022-02-18] MEDS: polyethylene glycoL POWDER 17 GM (MIRALAX) PACK PO SCH ×2 (07:51→21:48)
[2022-02-18] MEDS: SENNA W/DOCUSATE (SENOKOT S) TABLET PO SCH ×2 (07:51→21:38)
--- NOTE | 2022-02-18 11:01 | Occupational Ther Daily Note ---
OT Current Status-Daily Note Subjective Pt began tx in recliner and agreeable to OT tx. Mental Status/Objective Patient Orientation: Normal For Age ADL-Treatment Therapy Code Descriptions/Definitions Functional [place] Measure: 0=Not Assessed/NA 4=Minimal Assistance 1=Total Assistance 5=Supervision or Setup 2=Maximal Assistance 6=Modified [place] 3=Moderate Assistance 7=Complete IndependenceSCALE: Activities may be completed with or without assistive devices. 9-Vthzptbbmi-wmwicvd completes the activity by him/herself with no assistance from a helper. 5-Set-up or Clean-up Assistance-helper sets up or cleans up; patient completes activity. [place] assists only prior to or following the activity. 4-Supervision or Touching Assistance-helper provides verbal cues and/or touching/steadying and/or contact guard assistance as patient completes activity. Assistance may be provided throughout the activity or intermittently. 3-Partial/Moderate Assistance-helper does LESS THAN HALF the effort. [place] lifts, holds or supports trunk or limbs, but provides less than half the effort. 2-Substantial/Maximal Assistance-helper does MORE THAN HALF the effort. [place] lifts or holds trunk or limbs and provides more than half the effort. 6-Qyduzloab-chuqmz does ALL the effort. Patient does none of the effort to complete the activity. Or, the assistance of 2 or more helpers is required for the patient to complete the activity. If activity was not attempted, code reason: 7-Patient Refused. 9-Not Applicable-not attempted and the patient did not perform the activity before the current illness, exacerbation or injury. 10-Not Attempted due to Environmental Limitations-(lack of equipment, weather restraints, etc.). 88-Not Attempted due to Medical Conditions or Safety Concerns. Oral Hygiene (QC): 5 (SBA) Shower/Bathe Self (QC): 5 (SBA) Upper Body Dressing (QC): 5 (SBA) Lower Body Dressing (QC): 5 (SBA) On/Off Footwear: 3 (ModA) Toileting Hygiene (QC): 5 (SBA) Toilet Transfer (QC): 5 (CGA) Other Treatment Pt requested a shower and using restroom upon arrival. Pt transferred from recliner to toilet with FWW with CGA for balance. Pt completed toileting and transferred to shower bench to complete shower. Pt completed shower, UB and LB with SBA for lengthy time completion and safety concerns when standing to cleanse bottom. Pt completed donning and doffing footwear with ModA due to limited mobility with assistance to don socks. Pt then transferred from shower bench to sink to complete oral hygiene at SBA for safety concerns for standing balance. Pt then ambulated to therapy gym to complete 15min on armbike to increase activity tolerance and BUE ROM. Pt then completed reaching to floor level for cones to increase (I) in LB dressing alternating hands. Pt then completed 3 different standing balance activities involving cones and trunk rotation, throwing rings at a target and playing catch to increase standing tolerance/balance. Pt then completed BUE strengthening exercise with yellow theraband 15 reps each completed elbow flexion/extension, horizontal shoulder abduction/ adduction. Pt then ambulated to end of hallway in commons area and back to room. Pt in recliner at end of tx with call light in reach and all needs met. OT Short Term Goals Short Term Goals Time Frame: Feb 21, 2022 Eatin Oral hygiene: 5 Toileting hygiene: 4 Shower/bathe self: 4 Upper body dressin Lower body dressin Putting on/taking off footwear: 3 OT Pharmaceutical Detailer Goals [facility] Goals Time Frame: Feb 27, 2022 Eating (QC): 6 Oral Hygiene (QC): 6 Toileting Hygiene (QC): 6 Shower/Bathe Self (QC): 5 Upper Body Dressing (QC): 6 Lower Body Dressing (QC): 6 On/Off Footwear (QC): 4 1=Demonstrate adherence to instructed precautions during ADL tasks. 2=Patient will verbalize/demonstrate understanding of assistive devices/modific ations for ADL. 3=Patient will improve strength/tolerance for activity to enable patient to perform ADL's. OT Education/Plan Problem List/Assessment Assessment: Decreased Activ Tolerance, Decreased UE Strength, Impaired Funct Balance, Impaired I ADL's, Impaired Self-Care Skills Discharge Recommendations Plan/Recommendations: Continue POC Treatment Plan/Plan of Care Patient would benefit from OT for education, treatment and training to promote independence in ADL's, mobility, safety and/or upper extremity function for ADL's. Plan of Care: ADL Retraining, Cognitive Retraining, Functional Mobility, Group Exercise/Act as Ind, UE Funct Exercise/Act Treatment Duration: Feb 27, 2022 Frequency: At least 5 of 7 days/Wk (IRF) Estimated Hrs Per Day: 1.5 hours per day (75-90 min/day ) Agreement: Yes Rehab Potential: Fair Time/GCodes Start Time: 09:30 Stop Time: 11:00 Total Time Billed (hr/min): 90 Billed Treatment Time 1 visit, 3 ADL (40min), 2 FA (30min), EX (20min) Tressa Lopez Feb 18, 2022 11:01
--- NOTE | 2022-02-18 11:58 | Physical Therapy Daily Note ---
PT Daily Note-Current Subjective Pt sitting in recliner upon arrival. Pt agrees to PT. Pain Location: Right, Left Location Body Site: Knee Pain Description: Chronic Mental Status Patient Orientation: Person, Place, Time, Situation Transfers SCALE: Activities may be completed with or without assistive devices. 9-Uzjnxtiebc-lxvinny completes the activity by him/herself with no assistance from a helper. 5-Set-up or Clean-up Assistance-helper sets up or cleans up; patient completes activity. [place] assists only prior to or following the activity. 4-Supervision or Touching Assistance-helper provides verbal cues and/or touching/steadying and/or contact guard assistance as patient completes activity. Assistance may be provided throughout the activity or intermittently. 3-Partial/Moderate Assistance-helper does LESS THAN HALF the effort. [place] lifts, holds or supports trunk or limbs, but provides less than half the effort. 2-Substantial/Maximal Assistance-helper does MORE THAN HALF the effort. [place] lifts or holds trunk or limbs and provides more than half the effort. 5-Ntqwpytws-ujmuby does ALL the effort. Patient does none of the effort to complete the activity. Or, the assistance of 2 or more helpers is required for the patient to complete the activity. If activity was not attempted, code reason: 7-Patient Refused. 9-Not Applicable-not attempted and the patient did not perform the activity before the current illness, exacerbation or injury. 10-Not Attempted due to Environmental Limitations-(lack of equipment, weather restraints, etc.). 88-Not Attempted due to Medical Conditions or Safety Concerns. Sit to Stand (QC): 5 Toilet Transfer (QC): 5 Weight Bearing Full Weight Bearing Full Weight Bearing Gait Training Does the Patient Walk?: Yes Distance: 150' Walk 10 feet (QC): 5 Walk 50 ft with 2 Turns(QC): 5 Walk 150 ft (QC): 5 Gait Assistive Device: FWW Exercises Standing: Hip Abduction, Hamstring curls, Marching, Sit to Stand Standing Reps: 15 NuStep Minutes: 15 NuStep Workload: 4 Treatments TF to standing, declines need for use of BR to start tx. Pt amb. in hallway before using NuStep. After short RB, pt completes Standing Ex at //bars. Pt amb. in hallway before returning to room to rest in recliner. All needs met, call light in hand. Assessment Current Status: Good Progress Pt wants to progress to SPC that pt was using at home but pt still WB through FWW too much to transition yet. PT Short Term Goals Short Term Goals Time Frame: Feb 21, 2022 Roll Left & Right: 6 Sit to lyin Lying to sitting on side of be: 4 Sit to stand: 5 Chair/txm-pa-xpxjk transfer: 5 Walk 10 feet: 5 Walk 50 feet with two turns: 5 Walk 150 feet: 5 PT Video Production Engineer Goals Half-Way Goals PT Video Production Engineer Goals Time Frame: Mar 07, 2022 Roll Left & Right (QC): 6 Sit to Lying (QC): 6 Lying-Sitting on Side/Bed(QC): 6 Sit to Stand (QC): 6 Chair/Oxa-ox-Ankih Xfer(QC): 6 Toilet Transfer (QC): 6 Car Transfer (QC): 6 Does the Patient Walk: Yes Walk 10 feet (QC): 6 Walk 50ft with 2 Turns (QC): 6 Walk 150 ft (QC): 6 Walking 10ft on Uneven Surface: 6 1 Step (curb) (QC): 4 4 Steps (QC): 4 12 Steps (QC): 88 Picking up an Object (QC): 6 Wheel 50 feet with 2 turns (QC: 9 Wheel 150 feet: 9 PT Plan Problem List Problem List: Activity Tolerance Treatment/Plan Treatment Plan: Continue Plan of Care Treatment Plan: Bed Mobility, Education, Functional Activity Corrine, Functional Strength, Group Therapy, Gait, Safety, Therapeutic Exercise, Transfers Treatment Duration: Mar 07, 2022 Frequency: At least 5 of 7 days/Wk (IRF) Estimated Hrs Per Day: 1.5 hours per day Patient and/or Family Agrees t: Yes Time/GCodes Time In: 1100 Time Out: 1200 Total Billed Treatment Time: 60 Total Billed Treatment 1, GT (20m), EX x2 (30m) & FA (10m) CAMERON DE ANDA LOCAL TRUCK DRIVER Feb 18, 2022 11:58
[2022-02-18] MEDS: ENOXAPARIN 40 MG/0.4 ML (LOVENOX) SYR SC SCH (15:04)
--- NOTE | 2022-02-18 15:29 | Physical Therapy Daily Note ---
PT Daily Note-Current Subjective Pt sitting in recliner upon arrival. Pt agrees to PT. Mental Status Patient Orientation: Person, Place, Time, Situation Transfers SCALE: Activities may be completed with or without assistive devices. 1-Bbtqqgwrcm-lfldgce completes the activity by him/herself with no assistance from a helper. 5-Set-up or Clean-up Assistance-helper sets up or cleans up; patient completes activity. [place] assists only prior to or following the activity. 4-Supervision or Touching Assistance-helper provides verbal cues and/or touching/steadying and/or contact guard assistance as patient completes activity. Assistance may be provided throughout the activity or intermittently. 3-Partial/Moderate Assistance-helper does LESS THAN HALF the effort. [place] lifts, holds or supports trunk or limbs, but provides less than half the effort. 2-Substantial/Maximal Assistance-helper does MORE THAN HALF the effort. [place] lifts or holds trunk or limbs and provides more than half the effort. 1-Bltruroxz-mwyjcc does ALL the effort. Patient does none of the effort to complete the activity. Or, the assistance of 2 or more helpers is required for the patient to complete the activity. If activity was not attempted, code reason: 7-Patient Refused. 9-Not Applicable-not attempted and the patient did not perform the activity before the current illness, exacerbation or injury. 10-Not Attempted due to Environmental Limitations-(lack of equipment, weather restraints, etc.). 88-Not Attempted due to Medical Conditions or Safety Concerns. Sit to Stand (QC): 5 Toilet Transfer (QC): 5 Weight Bearing Full Weight Bearing Full Weight Bearing Gait Training Does the Patient Walk?: Yes Distance: 350' Walk 10 feet (QC): 5 Walk 50 ft with 2 Turns(QC): 5 Walk 150 ft (QC): 4 Gait Assistive Device: FWW Exercises Seated Therapy Exercises: Ankle pumps, Long arc quads, Hip flexion, Hip abd/add, Glut set Seated Reps: 15 Treatments TF to standing and amb. in hallway. RB as needed and returns to room to rest at end of tx in recliner. All needs met, call light in hand. Assessment Current Status: Good Progress Pt hosea. tx well. PT Short Term Goals Short Term Goals Time Frame: Feb 21, 2022 Roll Left & Right: 6 Sit to lyin Lying to sitting on side of be: 4 Sit to stand: 5 Chair/iro-uv-taigk transfer: 5 Walk 10 feet: 5 Walk 50 feet with two turns: 5 Walk 150 feet: 5 PT Media Consultant Outside Sales Goals Nursing Home Goals PT Nursing Home Goals Time Frame: Mar 07, 2022 Roll Left & Right (QC): 6 Sit to Lying (QC): 6 Lying-Sitting on Side/Bed(QC): 6 Sit to Stand (QC): 6 Chair/Ptw-hj-Qltlb Xfer(QC): 6 Toilet Transfer (QC): 6 Car Transfer (QC): 6 Does the Patient Walk: Yes Walk 10 feet (QC): 6 Walk 50ft with 2 Turns (QC): 6 Walk 150 ft (QC): 6 Walking 10ft on Uneven Surface: 6 1 Step (curb) (QC): 4 4 Steps (QC): 4 12 Steps (QC): 88 Picking up an Object (QC): 6 Wheel 50 feet with 2 turns (QC: 9 Wheel 150 feet: 9 PT Plan Problem List Problem List: Activity Tolerance Treatment/Plan Treatment Plan: Continue Plan of Care Treatment Plan: Bed Mobility, Education, Functional Activity Corrine, Functional Strength, Group Therapy, Gait, Safety, Therapeutic Exercise, Transfers Treatment Duration: Mar 07, 2022 Frequency: At least 5 of 7 days/Wk (IRF) Estimated Hrs Per Day: 1.5 hours per day Patient and/or Family Agrees t: Yes Time/GCodes Time In: 1330 Time Out: 1400 Total Billed Treatment Time: 30 Total Billed Treatment 1, FA (15m) & EX (15m) CAMERON DE ANDA RIP AND GROOVE MACHINE OPERATOR Feb 18, 2022 15:29
[2022-02-18 20:00] VITALS: BP 147/65
[2022-02-18] MEDS: FINASTERIDE (PROSCAR) 5 MG TAB PO SCH (21:38)
[2022-02-19 07:20] VITALS: BP 132/76
[2022-02-19] MEDS: MELOXICAM 7.5 MG (MOBIC) TABLET PO SCH (08:22)
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
[2022-02-19] MEDS: HYDROcodone/APAP 7.5 MG/325 MG (LORTAB, LORCET PLUS) TABLET PO PRN ×2 (08:49→15:21)
[2022-02-19] MEDS: MONTELUKAST 10 MG (SINGULAIR) TAB PO SCH (09:15)
[2022-02-19] MEDS: amLODIPine 5 MG (NORVASC) TAB PO SCH (09:15)
[2022-02-19] MEDS: SENNA W/DOCUSATE (SENOKOT S) TABLET PO SCH ×2 (09:15→21:02)
[2022-02-19] MEDS: DOCUSATE SODIUM 100 MG (COLACE) CAP PO SCH ×2 (09:36→19:13)
[2022-02-19] MEDS: polyethylene glycoL POWDER 17 GM (MIRALAX) PACK PO SCH ×2 (09:37→19:14)
--- NOTE | 2022-02-19 10:25 | Occupational Ther Daily Note ---
OT Current Status-Daily Note Subjective Pt in recliner at beginning of tx and agreeable to OT tx. Mental Status/Objective Patient Orientation: Normal For Age ADL-Treatment Therapy Code Descriptions/Definitions Functional [place] Measure: 0=Not Assessed/NA 4=Minimal Assistance 1=Total Assistance 5=Supervision or Setup 2=Maximal Assistance 6=Modified [place] 3=Moderate Assistance 7=Complete IndependenceSCALE: Activities may be completed with or without assistive devices. 9-Fxdwbatnpr-wuadrqf completes the activity by him/herself with no assistance from a helper. 5-Set-up or Clean-up Assistance-helper sets up or cleans up; patient completes activity. [place] assists only prior to or following the activity. 4-Supervision or Touching Assistance-helper provides verbal cues and/or touching/steadying and/or contact guard assistance as patient completes activity. Assistance may be provided throughout the activity or intermittently. 3-Partial/Moderate Assistance-helper does LESS THAN HALF the effort. [place] lifts, holds or supports trunk or limbs, but provides less than half the effort. 2-Substantial/Maximal Assistance-helper does MORE THAN HALF the effort. [place] lifts or holds trunk or limbs and provides more than half the effort. 8-Qxklqnitm-ssqgmk does ALL the effort. Patient does none of the effort to complete the activity. Or, the assistance of 2 or more helpers is required for the patient to complete the activity. If activity was not attempted, code reason: 7-Patient Refused. 9-Not Applicable-not attempted and the patient did not perform the activity before the current illness, exacerbation or injury. 10-Not Attempted due to Environmental Limitations-(lack of equipment, weather restraints, etc.). 88-Not Attempted due to Medical Conditions or Safety Concerns. Oral Hygiene (QC): 6 (Ind) Shower/Bathe Self (QC): 6 (Ind) Upper Body Dressing (QC): 6 (Ind) Lower Body Dressing (QC): 6 (Ind) On/Off Footwear: 6 (Ind, EOB) Toileting Hygiene (QC): 6 (Ind) Toilet Transfer (QC): 5 (SBA) Other Treatment Pt transferred to shower bench with FWW with SBA. Pt completed shower, UB and LB dressing at Ind. Pt stated at home, he dons socks at EOB so pt transferred with FWW to EOB to complete donning footwear at [facility] [place]. Pt then completed oral hygiene and grooming at [facility] [place]. Upon completing, pt ambulated to therapy gym with FWW at [facility] to complete 15min on armbike to increase activity tolerance and BUE strength. Pt then completed 15 reps on each arm of yellow theraband exercises to increase BUE strength and activity tolerance by completing elbow flex ion/extension, shoulder horizontal abduction/adduction, scaption and punch outs. Pt completed standing activity to increase dynamic standing balance and activity tolerance by playing catch with a ball. Pt ambulated to end of montes in commons area and then back to room with FWW at [facility]. Pt in recliner at end of session with call light in reach and all needs met. OT Short Term Goals Short Term Goals Time Frame: Feb 21, 2022 Eatin Oral hygiene: 5 Toileting hygiene: 4 Shower/bathe self: 4 Upper body dressin Lower body dressin Putting on/taking off footwear: 3 OT Skilled Nursing Goals Flask Handler Goals Time Frame: Feb 27, 2022 Eating (QC): 6 Oral Hygiene (QC): 6 Toileting Hygiene (QC): 6 Shower/Bathe Self (QC): 5 Upper Body Dressing (QC): 6 Lower Body Dressing (QC): 6 On/Off Footwear (QC): 4 1=Demonstrate adherence to instructed precautions during ADL tasks. 2=Patient will verbalize/demonstrate understanding of assistive devices/modifications for ADL. 3=Patient will improve strength/tolerance for activity to enable patient to perform ADL's. OT Education/Plan Problem List/Assessment Assessment: Decreased Activ Tolerance, Decreased UE Strength, Impaired Funct Balance, Impaired I ADL's Discharge Recommendations Plan/Recommendations: Continue POC Treatment Plan/Plan of Care Patient would benefit from OT for education, treatment and training to promote independence in ADL's, mobility, safety and/or upper extremity function for ADL's. Plan of Care: ADL Retraining, Cognitive Retraining, Functional Mobility, Group Exercise/Act as Ind, UE Funct Exercise/Act Treatment Duration: Feb 27, 2022 Frequency: At least 5 of 7 days/Wk (IRF) Estimated Hrs Per Day: 1.5 hours per day (75-90 min/day ) Agreement: Yes Rehab Potential: Fair Time/GCodes Start Time: 09:30 Stop Time: 11:00 Total Time Billed (hr/min): 90 Billed Treatment Time 1 visit, ADL 4 (60min), EX 2 (30min) Tressa Lopez Feb 19, 2022 10:25
--- NOTE | 2022-02-19 12:17 | Physical Therapy Daily Note ---
PT Daily Note-Current Subjective Pt sitting in recliner upon arrival. Pt agrees to PT. Pt is anticipated a tentative d/c of Thursday so wants to work on walking w/SPC. Mental Status Patient Orientation: Person, Place, Situation Transfers SCALE: Activities may be completed with or without assistive devices. 7-Fermazrogf-havmlvl completes the activity by him/herself with no assistance from a helper. 5-Set-up or Clean-up Assistance-helper sets up or cleans up; patient completes activity. [place] assists only prior to or following the activity. 4-Supervision or Touching Assistance-helper provides verbal cues and/or touching/steadying and/or contact guard assistance as patient completes activity. Assistance may be provided throughout the activity or intermittently. 3-Partial/Moderate Assistance-helper does LESS THAN HALF the effort. [place] lifts, holds or supports trunk or limbs, but provides less than half the effort. 2-Substantial/Maximal Assistance-helper does MORE THAN HALF the effort. [place] lifts or holds trunk or limbs and provides more than half the effort. 2-Okqyvgezz-nvkqsa does ALL the effort. Patient does none of the effort to complete the activity. Or, the assistance of 2 or more helpers is required for the patient to complete the activity. If activity was not attempted, code reason: 7-Patient Refused. 9-Not Applicable-not attempted and the patient did not perform the activity before the current illness, exacerbation or injury. 10-Not Attempted due to Environmental Limitations-(lack of equipment, weather restraints, etc.). 88-Not Attempted due to Medical Conditions or Safety Concerns. Sit to Stand (QC): 5 Toilet Transfer (QC): 5 Weight Bearing Full Weight Bearing Full Weight Bearing Gait Training Does the Patient Walk?: Yes Distance: 150' x2 Walk 10 feet (QC): 5 Walk 50 ft with 2 Turns(QC): 5 Walk 150 ft (QC): 5 Walking 10ft/uneven surface-QC: 5 Gait Assistive Device: Cane Single Point Wheelchair Training Does the Pt Use a Wheelchair?: No Exercises Seated Therapy Exercises: Ankle pumps, Long arc quads, Hip flexion, Hip abd/add, Glut set Seated Reps: 15 Treatments TF to standing and amb. in hallway, including practice for toileting while using SPC like at home. Pt completes Seated Ex at recliner after amb. All needs met, call light in hand. Assessment Current Status: Good Progress Pt needs occasional VC to slow down during ambulation for improved body control & balance. PT Short Term Goals Short Term Goals Time Frame: Feb 21, 2022 Roll Left & Right: 6 Sit to lyin Lying to sitting on side of be: 4 Sit to stand: 5 Chair/vnm-uv-kmqca transfer: 5 Walk 10 feet: 5 Walk 50 feet with two turns: 5 Walk 150 feet: 5 PT Chief Operator Synthesis Goals Chief Operator Synthesis Goals PT Chief Operator Synthesis Goals Time Frame: Mar 07, 2022 Roll Left & Right (QC): 6 Sit to Lying (QC): 6 Lying-Sitting on Side/Bed(QC): 6 Sit to Stand (QC): 6 Chair/Ktt-ry-Hxfbw Xfer(QC): 6 Toilet Transfer (QC): 6 Car Transfer (QC): 6 Does the Patient Walk: Yes Walk 10 feet (QC): 6 Walk 50ft with 2 Turns (QC): 6 Walk 150 ft (QC): 6 Walking 10ft on Uneven Surface: 6 1 Step (curb) (QC): 4 4 Steps (QC): 4 12 Steps (QC): 88 Picking up an Object (QC): 6 Wheel 50 feet with 2 turns (QC: 9 Wheel 150 feet: 9 PT Plan Problem List Problem List: Activity Tolerance Treatment/Plan Treatment Plan: Continue Plan of Care Treatment Plan: Bed Mobility, Education, Functional Activity Corrine, Functional Strength, Group Therapy, Gait, Safety, Therapeutic Exercise, Transfers Treatment Duration: Mar 07, 2022 Frequency: At least 5 of 7 days/Wk (IRF) Estimated Hrs Per Day: 1.5 hours per day Patient and/or Family Agrees t: Yes Safety Risks/Education Patient Education: Gait Training, Correct Positioning Teaching Recipient: Patient Teaching Methods: Discussion Response to Teaching: Verbalize Understanding Time/GCodes Time In: 1100 Time Out: 1200 Total Billed Treatment Time: 60 Total Billed Treatment 1, GT x2 (30m), FA (15m) & EX (15m) CAMERON DE ANDA CHILD CAREGIVER Feb 19, 2022 12:17
[2022-02-19] MEDS: ENOXAPARIN 40 MG/0.4 ML (LOVENOX) SYR SC SCH (15:20)
--- NOTE | 2022-02-19 15:40 | Physical Therapy Daily Note ---
PT Daily Note-Current Subjective Pt sitting in recliner upon arrival. Pt agrees to PT. Mental Status Patient Orientation: Person, Place, Situation Transfers SCALE: Activities may be completed with or without assistive devices. 8-Txajvqcxyh-nyallqm completes the activity by him/herself with no assistance from a helper. 5-Set-up or Clean-up Assistance-helper sets up or cleans up; patient completes activity. [place] assists only prior to or following the activity. 4-Supervision or Touching Assistance-helper provides verbal cues and/or touching/steadying and/or contact guard assistance as patient completes activity. Assistance may be provided throughout the activity or intermittently. 3-Partial/Moderate Assistance-helper does LESS THAN HALF the effort. [place] lifts, holds or supports trunk or limbs, but provides less than half the effort. 2-Substantial/Maximal Assistance-helper does MORE THAN HALF the effort. [place] lifts or holds trunk or limbs and provides more than half the effort. 1-Uvoxahbxj-mvddur does ALL the effort. Patient does none of the effort to complete the activity. Or, the assistance of 2 or more helpers is required for the patient to complete the activity. If activity was not attempted, code reason: 7-Patient Refused. 9-Not Applicable-not attempted and the patient did not perform the activity before the current illness, exacerbation or injury. 10-Not Attempted due to Environmental Limitations-(lack of equipment, weather restraints, etc.). 88-Not Attempted due to Medical Conditions or Safety Concerns. Sit to Stand (QC): 5 Toilet Transfer (QC): 5 Weight Bearing Full Weight Bearing Full Weight Bearing Gait Training Does the Patient Walk?: Yes Distance: 20', 300' x2 Walk 10 feet (QC): 5 Walk 50 ft with 2 Turns(QC): 5 Walk 150 ft (QC): 5 Gait Assistive Device: Cane Single Point Treatments TF to standing and asks to use BR. After toileting, pt is able to complete pericare & wash hands. Pt amb. in hallway, taking RB as needed before returning to room to rest in recliner. All needs met, call light in hand. Assessment Current Status: Good Progress Pt is improving with strength, mobility and independence with tasks. Pt needs occasional VC for safety with ambulation mainly to slow down for better balance. Pt is able to correct and able to use SPC well. PT Short Term Goals Short Term Goals Time Frame: Feb 21, 2022 Roll Left & Right: 6 Sit to lyin Lying to sitting on side of be: 4 Sit to stand: 5 Chair/jpp-sk-tnjyb transfer: 5 Walk 10 feet: 5 Walk 50 feet with two turns: 5 Walk 150 feet: 5 PT Machine Splitter Goals Machine Splitter Goals PT Machine Splitter Goals Time Frame: Mar 07, 2022 Roll Left & Right (QC): 6 Sit to Lying (QC): 6 Lying-Sitting on Side/Bed(QC): 6 Sit to Stand (QC): 6 Chair/Vqo-fn-Lnqac Xfer(QC): 6 Toilet Transfer (QC): 6 Car Transfer (QC): 6 Does the Patient Walk: Yes Walk 10 feet (QC): 6 Walk 50ft with 2 Turns (QC): 6 Walk 150 ft (QC): 6 Walking 10ft on Uneven Surface: 6 1 Step (curb) (QC): 4 4 Steps (QC): 4 12 Steps (QC): 88 Picking up an Object (QC): 6 Wheel 50 feet with 2 turns (QC: 9 Wheel 150 feet: 9 PT Plan Problem List Problem List: Activity Tolerance Treatment/Plan Treatment Plan: Continue Plan of Care Treatment Plan: Bed Mobility, Education, Functional Activity Corrine, Functional Strength, Group Therapy, Gait, Safety, Therapeutic Exercise, Transfers Treatment Duration: Mar 07, 2022 Frequency: At least 5 of 7 days/Wk (IRF) Estimated Hrs Per Day: 1.5 hours per day Patient and/or Family Agrees t: Yes Safety Risks/Education Patient Education: Gait Training, Safety Issues Teaching Recipient: Patient Teaching Methods: Discussion Response to Teaching: Verbalize Understanding Time/GCodes Time In: 1330 Time Out: 1400 Total Billed Treatment Time: 30 Total Billed Treatment 1, GT x2 (30m) CAMERON DE ANDA MICRO LAB ANALYST Feb 19, 2022 15:40
[2022-02-19 20:00] VITALS: BP 132/72
[2022-02-19] MEDS: FINASTERIDE (PROSCAR) 5 MG TAB PO SCH (21:02)
[2022-02-20 07:19] VITALS: BP 116/72
[2022-02-20] MEDS: MONTELUKAST 10 MG (SINGULAIR) TAB PO SCH (08:04)
[2022-02-20] MEDS: MELOXICAM 7.5 MG (MOBIC) TABLET PO SCH (08:05)
[2022-02-20] MEDS: amLODIPine 5 MG (NORVASC) TAB PO SCH (08:05)
[2022-02-20] MEDS: SENNA W/DOCUSATE (SENOKOT S) TABLET PO SCH ×2 (08:05→20:34)
[2022-02-20] MEDS: HYDROcodone/APAP 7.5 MG/325 MG (LORTAB, LORCET PLUS) TABLET PO PRN ×2 (08:09→20:16)
[2022-02-20] MEDS: LORATADINE (CLARITIN) 10 MG TAB PO PRN (08:16)
[2022-02-20] MEDS: FLUTICASONE NASAL SPRAY (FLONASE) 16 GM BTL NS PRN (08:16)
[2022-02-20] MEDS: polyethylene glycoL POWDER 17 GM (MIRALAX) PACK PO SCH ×2 (09:57→20:34)
[2022-02-20] MEDS: DOCUSATE SODIUM 100 MG (COLACE) CAP PO SCH ×2 (09:57→20:33)
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
--- NOTE | 2022-02-20 10:21 | Occupational Ther Daily Note ---
OT Current Status-Daily Note Subjective Pt in recliner at beginning of tx and agreeable to OT tx. Mental Status/Objective Patient Orientation: Normal For Age ADL-Treatment Therapy Code Descriptions/Definitions Functional [place] Measure: 0=Not Assessed/NA 4=Minimal Assistance 1=Total Assistance 5=Supervision or Setup 2=Maximal Assistance 6=Modified [place] 3=Moderate Assistance 7=Complete IndependenceSCALE: Activities may be completed with or without assistive devices. 1-Blwdlgiwhx-ajxhvrs completes the activity by him/herself with no assistance from a helper. 5-Set-up or Clean-up Assistance-helper sets up or cleans up; patient completes activity. [place] assists only prior to or following the activity. 4-Supervision or Touching Assistance-helper provides verbal cues and/or touching/steadying and/or contact guard assistance as patient completes activity. Assistance may be provided throughout the activity or intermittently. 3-Partial/Moderate Assistance-helper does LESS THAN HALF the effort. [place] lifts, holds or supports trunk or limbs, but provides less than half the effort. 2-Substantial/Maximal Assistance-helper does MORE THAN HALF the effort. [place] lifts or holds trunk or limbs and provides more than half the effort. 5-Qmsamemem-hmmyns does ALL the effort. Patient does none of the effort to complete the activity. Or, the assistance of 2 or more helpers is required for the patient to complete the activity. If activity was not attempted, code reason: 7-Patient Refused. 9-Not Applicable-not attempted and the patient did not perform the activity before the current illness, exacerbation or injury. 10-Not Attempted due to Environmental Limitations-(lack of equipment, weather restraints, etc.). 88-Not Attempted due to Medical Conditions or Safety Concerns. Other Treatment Pt requested to use restroom before taking a shower, pt ambulated with cane to toilet with [facility] and completed toileting at [facility]. Pt completed shower, LB and UB dressing at [facility]. Pt then transferred to [facility] to complete donning footwear at [facility]. Pt completed oral hygiene standing at sink side at [facility]. Pt ambulated to therapy gym with cane at [facility] to complete armbike for 15min to increase BUE strength and activity tolerance. Pt completed BUE yellow theraband strengthening exercises to also increase activity tolerance by completing 15 reps each of elbow extension/flexion, scaption, punch outs and horizontal shoulder abduction/adduction. Pt participated in standing balance activity involving trunk control and reaching across midline to reach for cones completing 2 rounds of 8 cone grabs on each arm. Pt ambulated with cane at [facility] to end of hallway and back to pt's room to sit in recliner. Pt in recliner with call light in reach and all needs met. OT Short Term Goals Short Term Goals Time Frame: Feb 21, 2022 Eatin Oral hygiene: 5 Toileting hygiene: 4 Shower/bathe self: 4 Upper body dressin Lower body dressin Putting on/taking off footwear: 3 OT Certified Dietary Manager Goals Certified Dietary Manager Goals Time Frame: Feb 27, 2022 Eating (QC): 6 Oral Hygiene (QC): 6 Toileting Hygiene (QC): 6 Shower/Bathe Self (QC): 5 Upper Body Dressing (QC): 6 Lower Body Dressing (QC): 6 On/Off Footwear (QC): 4 1=Demonstrate adherence to instructed precautions during ADL tasks. 2=Patient will verbalize/demonstrate understanding of assistive devices/modifications for ADL. 3=Patient will improve strength/tolerance for activity to enable patient to perform ADL's. OT Education/Plan Problem List/Assessment Assessment: Decreased Activ Tolerance, Decreased UE Strength, Impaired Funct Balance, Impaired I ADL's Discharge Recommendations Plan/Recommendations: Continue POC Treatment Plan/Plan of Care Patient would benefit from OT for education, treatment and training to promote independence in ADL's, mobility, safety and/or upper extremity function for ADL's. Plan of Care: ADL Retraining, Cognitive Retraining, Functional Mobility, Group Exercise/Act as Ind, UE Funct Exercise/Act Treatment Duration: Feb 27, 2022 Frequency: At least 5 of 7 days/Wk (IRF) Estimated Hrs Per Day: 1.5 hours per day (75-90 min/day ) Agreement: Yes Rehab Potential: Fair Time/GCodes Start Time: 09:30 Stop Time: 11:00 Total Time Billed (hr/min): 90 Billed Treatment Time 1 visit, ADL 4 (60min), EX 2 (30min) Tressa Lopze Feb 20, 2022 10:21
--- NOTE | 2022-02-20 12:01 | Physical Therapy Daily Note ---
PT Daily Note-Current Subjective Pt very pleasant and agreeable to Rx. Pt. c/o pain in his bilat knees but states this is not a new thing and he just has to manage it. Pain Numeric Pain Scale: 5-Moderate Pain Location: Left (and right) Location Body Site: Knee Pain Description: Ache Mental Status Patient Orientation: Normal For Age Transfers SCALE: Activities may be completed with or without assistive devices. 4-Ioncibgtxr-quqblwy completes the activity by him/herself with no assistance from a helper. 5-Set-up or Clean-up Assistance-helper sets up or cleans up; patient completes activity. [place] assists only prior to or following the activity. 4-Supervision or Touching Assistance-helper provides verbal cues and/or touching/steadying and/or contact guard assistance as patient completes activity. Assistance may be provided throughout the activity or intermittently. 3-Partial/Moderate Assistance-helper does LESS THAN HALF the effort. [place] lifts, holds or supports trunk or limbs, but provides less than half the effort. 2-Substantial/Maximal Assistance-helper does MORE THAN HALF the effort. [place] lifts or holds trunk or limbs and provides more than half the effort. 8-Iwsqmqnvl-qsbyha does ALL the effort. Patient does none of the effort to complete the activity. Or, the assistance of 2 or more helpers is required for the patient to complete the activity. If activity was not attempted, code reason: 7-Patient Refused. 9-Not Applicable-not attempted and the patient did not perform the activity before the current illness, exacerbation or injury. 10-Not Attempted due to Environmental Limitations-(lack of equipment, weather restraints, etc.). 88-Not Attempted due to Medical Conditions or Safety Concerns. Roll Left & Right (QC): 6 Sit to Lying (QC): 6 Lying to Sitting/Side of Bed(Q: 6 Sit to Stand (QC): 6 Chair/Lxg-kp-Tktkf Xfer(QC): 6 Weight Bearing Full Weight Bearing Full Weight Bearing Gait Training Does the Patient Walk?: Yes Walk 10 feet (QC): 6 Walk 50 ft with 2 Turns(QC): 6 Walk 150 ft (QC): 6 Gait Persons Needed: 1 Gait Assistive Device: Cane Single Point pt. with SPC ambulated 150 ft x 2 , 40 ft x 1, with waddle type gait, upper body deviating laterally left and right for momentum, no LOB good use of AD Stair Training pt. declines steps stating he never has to use steps and has bone on bone issues bilat knees and this would only exacerbate it Exercises Supine Ex: Bridging, Ankle pumps, Quad Set, Rolling, Glut sets, Lower trunk rotation, Heel Slides, Scooting, Straight leg raise, Hip abd/add Supine Reps: 12 Seated Therapy Exercises: Ankle pumps, Sit to stand, Long arc quads, Hip flexion Seated Reps: 10 NuStep Minutes: 15 NuStep Workload: 2 Treatments as above Assessment Current Status: Good Progress very pleasant and gives full effort PT Short Term Goals Short Term Goals Time Frame: Feb 21, 2022 Roll Left & Right: 6 Sit to lyin Lying to sitting on side of be: 4 Sit to stand: 5 Chair/gis-kh-wiewu transfer: 5 Walk 10 feet: 5 Walk 50 feet with two turns: 5 Walk 150 feet: 5 PT Seedling Puller Goals Group Home Goals PT Group Home Goals Time Frame: Mar 07, 2022 Roll Left & Right (QC): 6 Sit to Lying (QC): 6 Lying-Sitting on Side/Bed(QC): 6 Sit to Stand (QC): 6 Chair/Mgx-za-Wrycc Xfer(QC): 6 Toilet Transfer (QC): 6 Car Transfer (QC): 6 Does the Patient Walk: Yes Walk 10 feet (QC): 6 Walk 50ft with 2 Turns (QC): 6 Walk 150 ft (QC): 6 Walking 10ft on Uneven Surface: 6 1 Step (curb) (QC): 4 4 Steps (QC): 4 12 Steps (QC): 88 Picking up an Object (QC): 6 Wheel 50 feet with 2 turns (QC: 9 Wheel 150 feet: 9 PT Plan Treatment/Plan Treatment Plan: Continue Plan of Care Treatment Plan: Bed Mobility, Education, Functional Activity Corrine, Functional Strength, Group Therapy, Gait, Safety, Therapeutic Exercise, Transfers Treatment Duration: Mar 07, 2022 Frequency: At least 5 of 7 days/Wk (IRF) Estimated Hrs Per Day: 1.5 hours per day Patient and/or Family Agrees t: Yes Safety Risks/Education Patient Education: Gait Training, Transfer Techniques, Correct Positioning, Disease Process, Safety Issues Teaching Recipient: Patient Teaching Methods: Demonstration, Discussion Response to Teaching: Verbalize Understanding, Return Demonstration, Reinforcement Needed Time/GCodes Time In: 1100 Time Out: 1200 Total Billed Treatment Time: 60 Total Billed Treatment 1,GT25m,EX15m,FA20m MAYRA ADKINS ANALYTICAL LEAD Feb 20, 2022 12:01
--- NOTE | 2022-02-20 14:32 | Physical Therapy Daily Note ---
PT Daily Note-Current Subjective Pt.agrees to Rx. Pain Numeric Pain Scale: 5-Moderate Pain Location: Left (and right) Location Body Site: Knee Pain Description: Ache Mental Status Patient Orientation: Normal For Age Transfers SCALE: Activities may be completed with or without assistive devices. 6-Yputsjrzgc-plzqwbs completes the activity by him/herself with no assistance from a helper. 5-Set-up or Clean-up Assistance-helper sets up or cleans up; patient completes activity. [place] assists only prior to or following the activity. 4-Supervision or Touching Assistance-helper provides verbal cues and/or touching/steadying and/or contact guard assistance as patient completes activity. Assistance may be provided throughout the activity or intermittently. 3-Partial/Moderate Assistance-helper does LESS THAN HALF the effort. [place] lifts, holds or supports trunk or limbs, but provides less than half the effort. 2-Substantial/Maximal Assistance-helper does MORE THAN HALF the effort. [place] lifts or holds trunk or limbs and provides more than half the effort. 0-Hantvcfxp-zzdycd does ALL the effort. Patient does none of the effort to complete the activity. Or, the assistance of 2 or more helpers is required for the patient to complete the activity. If activity was not attempted, code reason: 7-Patient Refused. 9-Not Applicable-not attempted and the patient did not perform the activity before the current illness, exacerbation or injury. 10-Not Attempted due to Environmental Limitations-(lack of equipment, weather restraints, etc.). 88-Not Attempted due to Medical Conditions or Safety Concerns. sit to stand all SBA, in out car simulator SBA Weight Bearing Full Weight Bearing Full Weight Bearing Gait Training Gait Assistive Device: Cane Single Point 125 ft x 2 SBA no LOB, Exercises Seated Therapy Exercises: Ankle pumps, Long arc quads Seated Reps: 10 Assessment Current Status: Good Progress PT Short Term Goals Short Term Goals Time Frame: Feb 21, 2022 Roll Left & Right: 6 Sit to lyin Lying to sitting on side of be: 4 Sit to stand: 5 Chair/imc-ty-wkjvu transfer: 5 Walk 10 feet: 5 Walk 50 feet with two turns: 5 Walk 150 feet: 5 PT Skilled Nursing Goals Skilled Nursing Goals PT Skilled Nursing Goals Time Frame: Mar 07, 2022 Roll Left & Right (QC): 6 Sit to Lying (QC): 6 Lying-Sitting on Side/Bed(QC): 6 Sit to Stand (QC): 6 Chair/Jqf-bg-Wgxbd Xfer(QC): 6 Toilet Transfer (QC): 6 Car Transfer (QC): 6 Does the Patient Walk: Yes Walk 10 feet (QC): 6 Walk 50ft with 2 Turns (QC): 6 Walk 150 ft (QC): 6 Walking 10ft on Uneven Surface: 6 1 Step (curb) (QC): 4 4 Steps (QC): 4 12 Steps (QC): 88 Picking up an Object (QC): 6 Wheel 50 feet with 2 turns (QC: 9 Wheel 150 feet: 9 PT Plan Treatment/Plan Treatment Plan: Continue Plan of Care Treatment Plan: Bed Mobility, Education, Functional Activity Corrine, Functional Strength, Group Therapy, Gait, Safety, Therapeutic Exercise, Transfers Treatment Duration: Mar 07, 2022 Frequency: At least 5 of 7 days/Wk (IRF) Estimated Hrs Per Day: 1.5 hours per day Patient and/or Family Agrees t: Yes Safety Risks/Education Patient Education: Gait Training, Transfer Techniques, Correct Positioning, Safety Issues Time/GCodes Time In: 1400 Time Out: 1430 Total Billed Treatment Time: 30 Total Billed Treatment 1,GT15m,FA15m MAYRA ADKINS [place] PANEL JOINER Feb 20, 2022 14:32
[2022-02-20] MEDS: ENOXAPARIN 40 MG/0.4 ML (LOVENOX) SYR SC SCH (15:50)
[2022-02-20 20:00] VITALS: BP 143/67
[2022-02-20] MEDS: FINASTERIDE (PROSCAR) 5 MG TAB PO SCH (20:16)
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
[2022-02-21 07:19] VITALS: BP 155/69
[2022-02-21] MEDS: MONTELUKAST 10 MG (SINGULAIR) TAB PO SCH (07:29)
[2022-02-21] MEDS: MELOXICAM 7.5 MG (MOBIC) TABLET PO SCH (07:29)
[2022-02-21] MEDS: amLODIPine 5 MG (NORVASC) TAB PO SCH (07:30)
[2022-02-21] MEDS: HYDROcodone/APAP 7.5 MG/325 MG (LORTAB, LORCET PLUS) TABLET PO PRN ×2 (07:35→20:25)
[2022-02-21] MEDS: FLUTICASONE NASAL SPRAY (FLONASE) 16 GM BTL NS PRN (07:36)
[2022-02-21] MEDS: SENNA W/DOCUSATE (SENOKOT S) TABLET PO SCH ×2 (07:51→21:00)
[2022-02-21] MEDS: DOCUSATE SODIUM 100 MG (COLACE) CAP PO SCH ×2 (07:51→21:00)
[2022-02-21] MEDS: polyethylene glycoL POWDER 17 GM (MIRALAX) PACK PO SCH ×2 (07:51→21:00)
--- NOTE | 2022-02-21 08:55 | Occupational Ther Daily Note ---
OT Current Status-Daily Note Subjective Pt in recliner at beginning of tx, agreeable to OT tx. Mental Status/Objective Patient Orientation: Normal For Age ADL-Treatment Therapy Code Descriptions/Definitions Functional [place] Measure: 0=Not Assessed/NA 4=Minimal Assistance 1=Total Assistance 5=Supervision or Setup 2=Maximal Assistance 6=Modified [place] 3=Moderate Assistance 7=Complete IndependenceSCALE: Activities may be completed with or without assistive devices. 4-Dhqgfigbjo-bbzxsdx completes the activity by him/herself with no assistance from a helper. 5-Set-up or Clean-up Assistance-helper sets up or cleans up; patient completes activity. [place] assists only prior to or following the activity. 4-Supervision or Touching Assistance-helper provides verbal cues and/or touching/steadying and/or contact guard assistance as patient completes activity. Assistance may be provided throughout the activity or intermittently. 3-Partial/Moderate Assistance-helper does LESS THAN HALF the effort. [place] lifts, holds or supports trunk or limbs, but provides less than half the effort. 2-Substantial/Maximal Assistance-helper does MORE THAN HALF the effort. [place] lifts or holds trunk or limbs and provides more than half the effort. 7-Ddqdqpcyj-wcxoyv does ALL the effort. Patient does none of the effort to complete the activity. Or, the assistance of 2 or more helpers is required for the patient to complete the activity. If activity was not attempted, code reason: 7-Patient Refused. 9-Not Applicable-not attempted and the patient did not perform the activity before the current illness, exacerbation or injury. 10-Not Attempted due to Environmental Limitations-(lack of equipment, weather restraints, etc.). 88-Not Attempted due to Medical Conditions or Safety Concerns. Eating (QC): 6 (Ind) Oral Hygiene (QC): 6 (Ind) Shower/Bathe Self (QC): 6 (Ind) Upper Body Dressing (QC): 6 (Ind) Lower Body Dressing (QC): 6 (Ind) On/Off Footwear: 6 (Ind) Toileting Hygiene (QC): 6 (Ind) Toilet Transfer (QC): 5 ([place], safety concerns of balance) Other Treatment Pt transferred from recliner [facility] Pt completed shower, UB and LB dressing at Ind. Pt completed donning socks EOB at Ind. Pt completed oral hygiene at Ind standing at sink. Pt transferred back to recliner to brush hair. Pt states that he does his own laundry at home and wanted to do laundry here. Pt ambulated at [facility] to laundry room on IRF floor to complete laundry at Ind. Pt ambulated back to room to sit in recliner with family member in room. Pt in recliner at end of tx with call light in reach and all needs met. OT Short Term Goals Short Term Goals Time Frame: Feb 21, 2022 Eatin Oral hygiene: 5 Toileting hygiene: 4 Shower/bathe self: 4 Upper body dressin Lower body dressin Putting on/taking off footwear: 3 OT Mcfp Goals Lieutenant Ballistics Goals Time Frame: Feb 27, 2022 Eating (QC): 6 Oral Hygiene (QC): 6 Toileting Hygiene (QC): 6 Shower/Bathe Self (QC): 5 Upper Body Dressing (QC): 6 Lower Body Dressing (QC): 6 On/Off Footwear (QC): 4 1=Demonstrate adherence to instructed precautions during ADL tasks. 2=Patient will verbalize/demonstrate understanding of assistive devices/modifications for ADL. 3=Patient will improve strength/tolerance for activity to enable patient to perform ADL's. OT Education/Plan Problem List/Assessment Assessment: Decreased Activ Tolerance, Decreased UE Strength, Impaired Funct Balance, Impaired I ADL's, Impaired Self-Care Skills Discharge Recommendations Plan/Recommendations: Continue POC Treatment Plan/Plan of Care Patient would benefit from OT for education, treatment and training to promote independence in ADL's, mobility, safety and/or upper extremity function for ADL's. Plan of Care: ADL Retraining, Cognitive Retraining, Functional Mobility, Group Exercise/Act as Ind, UE Funct Exercise/Act Treatment Duration: Feb 27, 2022 Frequency: At least 5 of 7 days/Wk (IRF) Estimated Hrs Per Day: 1.5 hours per day (75-90 min/day ) Agreement: Yes Rehab Potential: Fair Time/GCodes Start Time: 08:00 Stop Time: 09:00 Total Time Billed (hr/min): 60 Billed Treatment Time 1 visit, ADL 4 (60min) Tressa Lopez Feb 21, 2022 08:55
--- NOTE | 2022-02-21 10:40 | Occupational Ther Daily Note ---
OT Current Status-Daily Note Subjective Pt began tx in restroom, pt agreeable to OT tx. Mental Status/Objective Patient Orientation: Normal For Age ADL-Treatment Therapy Code Descriptions/Definitions Functional [place] Measure: 0=Not Assessed/NA 4=Minimal Assistance 1=Total Assistance 5=Supervision or Setup 2=Maximal Assistance 6=Modified [place] 3=Moderate Assistance 7=Complete IndependenceSCALE: Activities may be completed with or without assistive devices. 3-Fqaupbirzz-qfbrygh completes the activity by him/herself with no assistance from a helper. 5-Set-up or Clean-up Assistance-helper sets up or cleans up; patient completes activity. [place] assists only prior to or following the activity. 4-Supervision or Touching Assistance-helper provides verbal cues and/or touching/steadying and/or contact guard assistance as patient completes activity. Assistance may be provided throughout the activity or intermittently. 3-Partial/Moderate Assistance-helper does LESS THAN HALF the effort. [place] lifts, holds or supports trunk or limbs, but provides less than half the effort. 2-Substantial/Maximal Assistance-helper does MORE THAN HALF the effort. [place] lifts or holds trunk or limbs and provides more than half the effort. 9-Mmjpuhqsm-sczxog does ALL the effort. Patient does none of the effort to complete the activity. Or, the assistance of 2 or more helpers is required for the patient to complete the activity. If activity was not attempted, code reason: 7-Patient Refused. 9-Not Applicable-not attempted and the patient did not perform the activity before the current illness, exacerbation or injury. 10-Not Attempted due to Environmental Limitations-(lack of equipment, weather restraints, etc.). 88-Not Attempted due to Medical Conditions or Safety Concerns. Other Treatment Pt washing hands in restroom upon arrival. Pt ambulated with cane to therapy gym with Yessica to complete 15min on armbike to increase activity tolerance and BUE strength. Pt ambulated with cane back to recliner in pt's room. pt in recliner with call light in reach and all needs met. OT Short Term Goals Short Term Goals Time Frame: Feb 21, 2022 Eatin Oral hygiene: 5 Toileting hygiene: 4 Shower/bathe self: 4 Upper body dressin Lower body dressin Putting on/taking off footwear: 3 OT Cafeteria Director Goals Residential Goals Time Frame: Feb 27, 2022 Eating (QC): 6 Oral Hygiene (QC): 6 Toileting Hygiene (QC): 6 Shower/Bathe Self (QC): 5 Upper Body Dressing (QC): 6 Lower Body Dressing (QC): 6 On/Off Footwear (QC): 4 1=Demonstrate adherence to instructed precautions during ADL tasks. 2=Patient will verbalize/demonstrate understanding of assistive devices/modifications for ADL. 3=Patient will improve strength/tolerance for activity to enable patient to perform ADL's. OT Education/Plan Problem List/Assessment Assessment: Decreased Activ Tolerance, Decreased UE Strength, Impaired Funct Balance, Impaired I ADL's Discharge Recommendations Plan/Recommendations: Continue POC Treatment Plan/Plan of Care Patient would benefit from OT for education, treatment and training to promote independence in ADL's, mobility, safety and/or upper extremity function for ADL's. Plan of Care: ADL Retraining, Cognitive Retraining, Functional Mobility, Group Exercise/Act as Ind, UE Funct Exercise/Act Treatment Duration: Feb 27, 2022 Frequency: At least 5 of 7 days/Wk (IRF) Estimated Hrs Per Day: 1.5 hours per day (75-90 min/day ) Agreement: Yes Rehab Potential: Fair Time/GCodes Start Time: 10:30 Stop Time: 11:00 Total Time Billed (hr/min): 30 Billed Treatment Time 1 visit, EX 2 (30min) Tressa Lopze Feb 21, 2022 10:40
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
--- NOTE | 2022-02-21 14:04 | Physical Therapy Daily Note ---
PT Daily Note-Current Subjective Pt. agrees to Rx and states he is hoping to walk and do the Nustep ..."and take a trip somewhere " ( Nustep path options) Pain Location: No Pain Reported Mental Status Patient Orientation: Normal For Age Transfers SCALE: Activities may be completed with or without assistive devices. 5-Lgzvxjjkyl-qpfhhjh completes the activity by him/herself with no assistance from a helper. 5-Set-up or Clean-up Assistance-helper sets up or cleans up; patient completes activity. [place] assists only prior to or following the activity. 4-Supervision or Touching Assistance-helper provides verbal cues and/or touching/steadying and/or contact guard assistance as patient completes activity. Assistance may be provided throughout the activity or intermittently. 3-Partial/Moderate Assistance-helper does LESS THAN HALF the effort. [place] lifts, holds or supports trunk or limbs, but provides less than half the effort. 2-Substantial/Maximal Assistance-helper does MORE THAN HALF the effort. [place] lifts or holds trunk or limbs and provides more than half the effort. 0-Esvwguytx-ycqxfn does ALL the effort. Patient does none of the effort to complete the activity. Or, the assistance of 2 or more helpers is required for the patient to complete the activity. If activity was not attempted, code reason: 7-Patient Refused. 9-Not Applicable-not attempted and the patient did not perform the activity before the current illness, exacerbation or injury. 10-Not Attempted due to Environmental Limitations-(lack of equipment, weather restraints, etc.). 88-Not Attempted due to Medical Conditions or Safety Concerns. sit to stands all mod I Weight Bearing Full Weight Bearing Full Weight Bearing Gait Training Does the Patient Walk?: Yes Gait Assistive Device: Cane Single Point 150ft x 2 SBA no LOB Exercises NuStep Minutes: 15 NuStep Workload: 1 Assessment Current Status: Good Progress meets goals PT Short Term Goals Short Term Goals Time Frame: Feb 21, 2022 Roll Left & Right: 6 Sit to lyin Lying to sitting on side of be: 4 Sit to stand: 5 Chair/uzx-ki-ylrup transfer: 5 Walk 10 feet: 5 Walk 50 feet with two turns: 5 Walk 150 feet: 5 PT Mcc Goals [place] Goals PT Mcc Goals Time Frame: Mar 07, 2022 Roll Left & Right (QC): 6 Sit to Lying (QC): 6 Lying-Sitting on Side/Bed(QC): 6 Sit to Stand (QC): 6 Chair/Msc-tk-Urmtw Xfer(QC): 6 Toilet Transfer (QC): 6 Car Transfer (QC): 6 Does the Patient Walk: Yes Walk 10 feet (QC): 6 Walk 50ft with 2 Turns (QC): 6 Walk 150 ft (QC): 6 Walking 10ft on Uneven Surface: 6 1 Step (curb) (QC): 4 4 Steps (QC): 4 12 Steps (QC): 88 Picking up an Object (QC): 6 Wheel 50 feet with 2 turns (QC: 9 Wheel 150 feet: 9 PT Plan Treatment/Plan Treatment Plan: Continue Plan of Care Treatment Plan: Bed Mobility, Education, Functional Activity Corrine, Functional Strength, Group Therapy, Gait, Safety, Therapeutic Exercise, Transfers Treatment Duration: Mar 07, 2022 Frequency: At least 5 of 7 days/Wk (IRF) Estimated Hrs Per Day: 1.5 hours per day Patient and/or Family Agrees t: Yes Safety Risks/Education Patient Education: Gait Training, Transfer Techniques, Reviewed Use of Ice, Safety Issues Time/GCodes Time In: 1330 Time Out: 1400 Total Billed Treatment Time: 30 Total Billed Treatment 1,GT15m,EX15m MAYRA ADKINS SUPERVISOR SANDBLASTER Feb 21, 2022 14:04
[2022-02-21] MEDS: ENOXAPARIN 40 MG/0.4 ML (LOVENOX) SYR SC SCH (16:50)
[2022-02-21 20:16] VITALS: BP 148/72
[2022-02-21] MEDS: FINASTERIDE (PROSCAR) 5 MG TAB PO SCH (20:25)
[2022-02-22 07:13] VITALS: BP 114/58
[2022-02-22] MEDS: HYDROcodone/APAP 7.5 MG/325 MG (LORTAB, LORCET PLUS) TABLET PO PRN ×2 (07:59→20:26)
[2022-02-22] MEDS: MONTELUKAST 10 MG (SINGULAIR) TAB PO SCH (08:00)
[2022-02-22] MEDS: LORATADINE (CLARITIN) 10 MG TAB PO PRN (08:00)
[2022-02-22] MEDS: amLODIPine 5 MG (NORVASC) TAB PO SCH (08:00)
[2022-02-22] MEDS: MELOXICAM 7.5 MG (MOBIC) TABLET PO SCH (08:00)
[2022-02-22] MEDS: FLUTICASONE NASAL SPRAY (FLONASE) 16 GM BTL NS PRN (08:00)
[2022-02-22] MEDS: SENNA W/DOCUSATE (SENOKOT S) TABLET PO SCH ×2 (09:01→21:00)
[2022-02-22] MEDS: polyethylene glycoL POWDER 17 GM (MIRALAX) PACK PO SCH ×2 (09:01→21:00)
[2022-02-22] MEDS: DOCUSATE SODIUM 100 MG (COLACE) CAP PO SCH ×2 (09:01→21:00)
[2022-02-22] MEDS: ENOXAPARIN 40 MG/0.4 ML (LOVENOX) SYR SC SCH ×2 (09:10→20:26)
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
[2022-02-22 19:38] VITALS: BP 123/78
[2022-02-22] MEDS: FINASTERIDE (PROSCAR) 5 MG TAB PO SCH (20:26)
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
[2022-02-23 07:03] VITALS: BP 125/65
[2022-02-23] MEDS: ENOXAPARIN 40 MG/0.4 ML (LOVENOX) SYR SC SCH (07:46)
[2022-02-23] MEDS: MELOXICAM 7.5 MG (MOBIC) TABLET PO SCH (07:48)
[2022-02-23] MEDS: MONTELUKAST 10 MG (SINGULAIR) TAB PO SCH (07:48)
[2022-02-23] MEDS: FLUTICASONE NASAL SPRAY (FLONASE) 16 GM BTL NS PRN (07:49)
[2022-02-23] MEDS: DOCUSATE SODIUM 100 MG (COLACE) CAP PO SCH (08:46)
[2022-02-23] MEDS: polyethylene glycoL POWDER 17 GM (MIRALAX) PACK PO SCH (08:47)
[2022-02-23] MEDS: SENNA W/DOCUSATE (SENOKOT S) TABLET PO SCH (08:47)
[2022-02-23] MEDS: HYDROcodone/APAP 7.5 MG/325 MG (LORTAB, LORCET PLUS) TABLET PO PRN (11:34)
[2022-02-23 12:00] VITALS: BP 125/65
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
== END 2022-02-23 12:00 | disposition home or self-care (01) | DRG 949 ==
PROVIDERS: ADMIT Internal Medicine; ATTEND Internal Medicine
DX: S06.9X9D Unspecified intracranial injury with loss of consciousness of unspecified duration, subsequent encounter (principal); N17.9 Acute kidney failure, unspecified; Z68.41 Body mass index [BMI] 40.0-44.9, adult; S60.211D Contusion of right wrist, subsequent encounter; S00.03XD Contusion of scalp, subsequent encounter; T14.8XXD Other injury of unspecified body region, subsequent encounter; M25.561 Pain in right knee; I12.9 Hypertensive chronic kidney disease with stage 1 through stage 4 chronic kidney disease, or unspecified chronic kidney disease; N18.9 Chronic kidney disease, unspecified; N40.0 Benign prostatic hyperplasia without lower urinary tract symptoms; M19.91 Primary osteoarthritis, unspecified site; F32.A Depression, unspecified; Z87.891 Personal history of nicotine dependence; Z88.0 Allergy status to penicillin; V43.52XD Car driver injured in collision with other type car in traffic accident, subsequent encounter
CPT/HCPCS: 36415; 70450; 71045; 71260; 72125; 73060; 73090; 73110; 74177; 80048; 80053; 80076; 85025; 85027; 90471; 90715; 93005; 93041; 96361; 96374; 96375; 96376; 99291; 99292; G0378

== ENCOUNTER 2023-01-17 13:52 | Observation (INO) | payer MEDICARE, MEDICAID ==
[~2023-01-17] VITALS: Ht 170 cm; Wt 130.1 kg
[~2023-01-17 13:52] MED LIST changes: +ALBU8.5H6 IH; +FLUT16SP22 NSEACH; -KETO5DRO14 OP; +KETO5DRO20 OP; +MELO7.5T46 PO; +MONT-47 PO; -MONT10TA21 PO; -RT-ALBUINH IH
[2023-01-17 14:10] LABS: BASOPHILS % (AUTO) 1 % (0-10); EOSINOPHILS # (AUTO) 0.2 10^3/uL (0.0-0.3); EOSINOPHILS % (AUTO) 3 % (0-10); HEMATOCRIT 36 % (40-54); HEMOGLOBIN 12.1 g/dL (13.3-17.7); LYMPHOCYTES # (AUTO) 0.9 10^3/uL (1.0-4.0); LYMPHOCYTES % (AUTO) 16 % (12-44); MEAN CORPUSCULAR HEMOGLOBIN 30 pg (25-34); MEAN CORPUSCULAR HGB CONC 33 g/dL (32-36); MEAN CORPUSCULAR VOLUME 91 fL (80-99); MEAN PLATELET VOLUME 10.3 fL (9.0-12.2); MONOCYTES # (AUTO) 0.4 10^3/uL (0.0-1.0); MONOCYTES % (AUTO) 8 % (0-12); NEUTROPHILS % (AUTO) 73 % (42-75); PLATELET COUNT 175 10^3/uL (130-400); WHITE BLOOD COUNT 5.5 10^3/uL (4.3-11.0)
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
[2023-01-17 14:26] LABS: ALBUMIN 3.8 GM/DL (3.2-4.5); CHLORIDE 109 MMOL/L (98-107); POTASSIUM 4.2 MMOL/L (3.6-5.0); PROTHROMBIN TIME PATIENT 13.2 SEC (12.2-14.7); SODIUM 139 MMOL/L (135-145)
[2023-01-17 14:27] LABS: CALCIUM 9.3 MG/DL (8.5-10.1)
[2023-01-17 14:28] LABS: GLUCOSE 118 MG/DL (70-105); TOTAL PROTEIN 7.2 GM/DL (6.4-8.2)
--- NOTE | 2023-01-17 14:28 | Diagnostic Imaging Report ---
INDICATION: Facial droop, pain. FINDINGS: Lungs clear. No failure, effusion or pneumothorax. IMPRESSION: Negative. Dictated by: Dictated on workstation # [id number]
[2023-01-17 14:29] LABS: CARBON DIOXIDE 21 MMOL/L (21-32)
[2023-01-17 14:30] LABS: BILIRUBIN,TOTAL 0.4 MG/DL (0.1-1.0)
[2023-01-17 14:32] LABS: ALKALINE PHOSPHATASE 118 U/L (40-136); CREATININE SERUM 1.83 MG/DL (0.60-1.30); GFR ESTIMATED 39
--- NOTE | 2023-01-17 14:32 | Diagnostic Imaging Report ---
PROCEDURE: CT head wo r/o stroke. TECHNIQUE: Multiple contiguous axial images were obtained through the brain without the use of intravenous contrast. Auto Exposure Controls were utilized during the CT exam to meet ALARA standards for radiation dose reduction. INDICATION: Right facial drooping, left facial numbness, symptoms began 0600 hours. FINDINGS There is no intracranial hemorrhage, hydrocephalus, cerebral edema, mass or mass effect. No evidence for elevated pressures. No sulcal effacement. No loss of the normal cortical aguilar-white matter differentiations. No suspicious intraluminal arterial hyperdensities were found. Orbits, sinuses and calvarium appeared nonacute. There is intracranial atherosclerotic vascular calcifications greatest at the carotids.. IMPRESSION: Atherosclerotic vascular disease, some mild senescent atrophy but no hemorrhage, edema, hydrocephalus or acute abnormalities identified at noncontrasted CT head. Dictated by: Dictated on workstation # [id number]
[2023-01-17 14:33] LABS: BUN/CREATININE RATIO 16
[2023-01-17 14:35] LABS: ALANINE AMINOTRANSFERASE 8 U/L (0-55)
[2023-01-17] MEDS ORDERED: IOHEXOL 350 MG/ML 100 ML (OMNIPAQUE 350) VIAL IV ONE (15:00)
[2023-01-17] MEDS ORDERED: NS 100 ML (IVPB) BAG IV ONE (15:00)
[2023-01-17] MEDS ORDERED: NS IV 1000 ML 1,000 ML IV SCH (15:00)
--- NOTE | 2023-01-17 16:27 | Diagnostic Imaging Report ---
PROCEDURE: CT angiography of the head and CT angiography of the neck with and without contrast. TECHNIQUE: Contiguous noncontrast images were obtained from the skull base through the vertex. After intravenous contrast administration, helical CT angiography of the neck was performed. Source data was reformatted into 3D MIP projections. Delayed post contrast acquisition was also obtained. Auto Exposure Controls were utilized during the CT exam to meet ALARA standards for radiation dose reduction. INDICATION: Right facial droop. COMPARISON: CT of the head performed earlier in the same day. FINDINGS: There is no significant stenosis. Great vessels arising from the aortic arch. There is mild plaquing within the arch without dissection or aneurysm. The vertebral artery origins are also patent. The common carotid arteries demonstrate no significant stenosis. There is plaquing at both of the carotid bifurcations. This results in no significant stenosis on the left and less than 50% stenosis on the right by NASCET criteria. The cervical internal carotid arteries demonstrate no dissection. The vertebral arteries throughout the neck are also patent without caliber change or luminal irregularity. Intracranially there is mild atherosclerotic disease within the carotid siphon. There is patent flow to the terminus and normal flow within the M1 segment of both the middle cerebral arteries. There are no findings of an M2 branch occlusion. The anterior cerebral arteries appear patent Within the posterior circulation both of the vertebral arteries are patent. There are patent bilateral posterior inferior cerebellar arteries. The basilar is patent. There is flow within the bilateral superior cerebral arteries and both of the posterior cerebral arteries are patent. There are moderate sized bilateral posterior communicating arteries. There are no findings of aneurysm. There is no vascular malformation. The dural venous sinuses are patent. The postcontrast CT of the head demonstrates no evidence of pathologic intracranial enhancement. The soft tissues of the neck demonstrate no acute process. Lung apices are clear. There are background features of degenerative disc disease with facet arthropathy within the cervical spine without findings of traumatic malalignment or acute fracture. IMPRESSION: 1. No CT angiographic evidence of intracranial large vessel occlusion or thrombosis. There is no high-grade intracranial stenosis. 2. No findings of high-grade stenosis or dissection within the neck. 3. No evidence of aneurysm or vascular malformation 4. No pathologic intracranial enhancement. 5. The dural venous sinuses are patent. Dictated by: Dictated on workstation # [id number]
[2023-01-17 16:30] LABS: BILIRUBIN,URINE NEGATIVE (NEGATIVE); CLARITY,URINE CLOUDY; COLOR,URINE YELLOW; GLUCOSE, URINE (UA) NEGATIVE (NEGATIVE); KETONES,URINE NEGATIVE (NEGATIVE); LEUKOCYTE ESTERASE ,URINE 2+ (NEGATIVE); NITRITE,URINE NEGATIVE (NEGATIVE); PROTEIN,URINE NEGATIVE (NEGATIVE)
[2023-01-17 16:46] LABS: BACTERIA,URINE NEGATIVE /HPF; RBC,URINE 0-2 /HPF; SQUAMOUS EPITHELIAL CELL,UR 0-2 /HPF; WBC,URINE 50-100 /HPF
[2023-01-17] MEDS ORDERED: ONDANSETRON 4 MG (ZOFRAN) ORAL DISSOLVE TAB PO PRN (17:45)
[2023-01-17] MEDS ORDERED: MILK OF MAGNESIA 400 MG/5 ML 30 ML UDC PO PRN (17:45)
[2023-01-17] MEDS ORDERED: ONDANSETRON 4 MG/2 ML (SDV) Z0FRAN IV PRN (17:45)
[2023-01-17] MEDS ORDERED: LACTULOSE SYRUP 10GM/15ML (ENULOSE) 30ML UDC PO PRN (17:45)
[2023-01-17] MEDS ORDERED: BISACODYL 10 MG SUPP (DULCOLAX) PR PRN (17:45)
[2023-01-17] MEDS ORDERED: ANTACID SUSP 30 ML UDC (MYLANTA) PO PRN (17:45)
[2023-01-17] MEDS ORDERED: polyethylene glycoL POWDER 17 GM (MIRALAX) PACK PO PRN (17:45)
[2023-01-17] MEDS ORDERED: MELATONIN 3 MG TABLET PO PRN (17:45)
[2023-01-17] MEDS ORDERED: CALCIUM CARBONATE 500 MG (TUMS) TAB.CHEW PO PRN (17:45)
[2023-01-17] MEDS ORDERED: ACETAMINOPHEN 325 MG TABLET PO PRN (17:45)
[2023-01-17 20:27] VITALS: BP 132/76
[2023-01-17] MEDS: TAMSULOSIN 0.4 MG (FLOMAX) CAP PO SCH (20:59)
[2023-01-17] MEDS: DOCUSATE SODIUM 100 MG (COLACE) CAP PO SCH (20:59)
[2023-01-17] MEDS: SENNOSIDES 8.6 MG (SENOKOT) TAB PO SCH (20:59)
[2023-01-17] MEDS: MONTELUKAST 10 MG (SINGULAIR) TAB PO SCH (21:00)
[2023-01-17] MEDS: ENOXAPARIN 40 MG/0.4 ML (LOVENOX) SYR SC SCH (21:01)
[2023-01-18] VITALS (7 sets, daily range): BP systolic 109–157; BP diastolic 68–87
[2023-01-18 06:17] LABS: BASOPHILS # (AUTO) 0.1 10^3/uL (0.0-0.1); BASOPHILS % (AUTO) 1 % (0-10); EOSINOPHILS # (AUTO) 0.2 10^3/uL (0.0-0.3); EOSINOPHILS % (AUTO) 4 % (0-10); HEMATOCRIT 33 % (40-54); HEMOGLOBIN 10.9 g/dL (13.3-17.7); LYMPHOCYTES # (AUTO) 0.9 10^3/uL (1.0-4.0); LYMPHOCYTES % (AUTO) 20 % (12-44); MEAN CORPUSCULAR HEMOGLOBIN 30 pg (25-34); MEAN CORPUSCULAR HGB CONC 33 g/dL (32-36); MEAN CORPUSCULAR VOLUME 91 fL (80-99); MEAN PLATELET VOLUME 10.7 fL (9.0-12.2); MONOCYTES # (AUTO) 0.4 10^3/uL (0.0-1.0); MONOCYTES % (AUTO) 8 % (0-12); NEUTROPHILS # (AUTO) 3.2 10^3/uL (1.8-7.8); NEUTROPHILS % (AUTO) 67 % (42-75); PLATELET COUNT 158 10^3/uL (130-400); WHITE BLOOD COUNT 4.7 10^3/uL (4.3-11.0)
[2023-01-18 06:46] LABS: CALCIUM 8.5 MG/DL (8.5-10.1); CREATININE SERUM 1.58 MG/DL (0.60-1.30); POTASSIUM 4.5 MMOL/L (3.6-5.0)
[2023-01-18] MEDS: FINASTERIDE (PROSCAR) 5 MG TAB PO SCH (08:30)
[2023-01-18] MEDS: ASPIRIN E.C. 81 MG (ECOTRIN) TAB PO SCH (08:30)
[2023-01-18] MEDS: SENNOSIDES 8.6 MG (SENOKOT) TAB PO SCH ×2 (08:31→21:31)
[2023-01-18] MEDS: ENOXAPARIN 40 MG/0.4 ML (LOVENOX) SYR SC SCH ×2 (08:31→21:35)
[2023-01-18] MEDS: DOCUSATE SODIUM 100 MG (COLACE) CAP PO SCH ×2 (08:31→21:31)
[2023-01-18] MEDS: FLUTICASONE NASAL SPRAY (FLONASE) 16 GM BTL NS SCH (09:30)
[2023-01-18] MEDS ORDERED: predniSONE 20 MG TAB PO ONE (11:00)
[2023-01-18] MEDS: ARTIFICAL TEARS 0.4 ML UNIT DOSE (REFRESH PLUS) OD SCH ×3 (12:15→21:35)
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
[2023-01-18] MEDS: TAMSULOSIN 0.4 MG (FLOMAX) CAP PO SCH (16:00)
[2023-01-18] MEDS ORDERED: LACRI-LUBE OPTHALMIC OINT 3.5 GM TUBE OD SCH (21:00)
[2023-01-18] MEDS: MONTELUKAST 10 MG (SINGULAIR) TAB PO SCH (21:35)
[2023-01-19 03:54] VITALS: BP 105/56
[2023-01-19 06:30] LABS: BASOPHILS % (AUTO) 0 % (0-10); EOSINOPHILS % (AUTO) 0 % (0-10); HEMATOCRIT 35 % (40-54); HEMOGLOBIN 11.8 g/dL (13.3-17.7); LYMPHOCYTES # (AUTO) 0.4 10^3/uL (1.0-4.0); LYMPHOCYTES % (AUTO) 8 % (12-44); MEAN CORPUSCULAR HEMOGLOBIN 30 pg (25-34); MEAN CORPUSCULAR HGB CONC 34 g/dL (32-36); MEAN CORPUSCULAR VOLUME 89 fL (80-99); MONOCYTES # (AUTO) 0.1 10^3/uL (0.0-1.0); MONOCYTES % (AUTO) 2 % (0-12); NEUTROPHILS # (AUTO) 4.4 10^3/uL (1.8-7.8); NEUTROPHILS % (AUTO) 90 % (42-75); PLATELET COUNT 181 10^3/uL (130-400); WHITE BLOOD COUNT 4.9 10^3/uL (4.3-11.0)
[2023-01-19 06:31] LABS: POTASSIUM 4.4 MMOL/L (3.6-5.0)
[2023-01-19 06:32] LABS: CALCIUM 9.1 MG/DL (8.5-10.1)
[2023-01-19 06:36] LABS: CREATININE SERUM 1.65 MG/DL (0.60-1.30)
[2023-01-19 06:54] LABS: LYMPHOCYTES % (MANUAL) 7 %; MONOCYTES % (MANUAL) 1 %; NEUTROPHILS % (MANUAL) 92 %; RBC MORPH NORMAL
[2023-01-19] MEDS ORDERED: predniSONE 20 MG TAB PO SCH (07:00)
[2023-01-19 07:43] VITALS: BP 128/68
--- NOTE | 2023-01-19 09:08 | Occupational Therapy Eval ---
OT Evaluation-General/PLF Medical Diagnosis Admission Date Jan 17, 2023 at 17:33 Medical Diagnosis: nerve facial (BELLS) palsy Onset Date: Jan 17, 2023 Therapy Diagnosis Therapy Diagnosis: weakness Height/Weight Height (Feet): 5 Height (Inches): 7.00 Weight (Pounds): 325 Weight (Ounces): 6.0 Precautions Precautions/Isolations: Fall Prevention, Standard Precautions Safety Interventions: Bed Exit Alarm Weight Bear Status Weight Bearing Restriction: Full Weight Bearing Referral Referral Reason: Evaluation/Treatment Medical History Pertinent Medical History: HTN, OA Additional Medical History Facial nerve palsy (Blaine palsy) CT head negative Begin steroids Artificial tears for eye protection Tick panel pending Consider MRI, monitor neurologic sy mptoms BPH CKD SANJU Morbid obesity Current History 72 year old male with PMH CKD, BPH, SANJU, morbid obesity, who was admitted with facial droop. This first developed yesterday upon awakening. He did not feel well the day before but could not explain further. He denies any specific areas of weakness. He denies numbness and tingling. He did report left facial numbness in the ER. He denies any hearing loss. He does not have any history of Blaine Palsy. He is not sure if he has been exposed to any ticks. He has been feeling dizzy. Source: patient Reviewed History: Yes Social History Home: Single Level Current Living Status: Alone Entry Into Home: Stairs Without Railing Steps Into Home: 1 ADL-Prior Level of Function SCALE: Activities may be completed with or without assistive devices. 3-Kctabullrf-kjfaddn completes the activity by him/herself with no assistance from a helper. 5-Set-up or Clean-up Assistance-helper sets up or cleans up; patient completes activity. [place] assists only prior to or following the activity. 4-Supervision or Touching Assistance-helper provides verbal cues and/or touching/steadying and/or contact guard assistance as patient completes activity. Assistance may be provided throughout the activity or intermittently. 3-Partial/Moderate Assistance-helper does LESS THAN HALF the effort. [place] lifts, holds or supports trunk or limbs, but provides less than half the effort. 2-Substantial/Maximal Assistance-helper does MORE THAN HALF the effort. [place] lifts or holds trunk or limbs and provides more than half the effort. 1-Rsaotppjq-uxegpo does ALL the effort. Patient does none of the effort to complete the activity. Or, the assistance of 2 or more helpers is required for the patient to complete the activity. If activity was not attempted, code reason: 7-Patient Refused. 9-Not Applicable-not attempted and the patient did not perform the activity before the current illness, exacerbation or injury. 10-Not Attempted due to Environmental Limitations-(lack of equipment, weather restraints, etc.). 88-Not Attempted due to Medical Conditions or Safety Concerns. Self Care: Independent Functional Cognition: Independent Drive Self: Yes OT Current Status Subjective Agreeable to OT Pain Numeric Pain Scale: 0-No Pain Mental Status/Objective Patient Orientation: Person, Time, Situation Current Upper Extremity ROM BUE ROM WFLS Upper Extremity Coordination INTACT Upper Extremity Sensation INTACT Upper Extremity Strength BUE WFLS, age appropriate ADL-Treatment Eating (QC): 5 Oral Hygiene (QC): 5 Shower/Bathe Self (QC): 7 Upper Body Dressing (QC): 5 Lower Body Dressing (QC): 5 On/Off Footwear (QC): 5 Toileting Hygiene (QC): 5 Education OT Patient Education: Disease process, Modified ADL techniques, Progress toward Goal/Update tx plan, Purpose of tx/functional activities, Reviewed precautions, Rehab process, Safety issues Teaching Recipient: Patient Teaching Methods: Discussion Response to Teaching: Reinforcement Needed OT Residential Goals Residential Goals Eating (QC): 6 Oral Hygiene (QC): 6 Toileting Hygiene (QC): 6 Shower/Bathe Self (QC): 6 Upper Body Dressing (QC): 6 Lower Body Dressing (QC): 6 On/Off Footwear (QC): 6 1=Demonstrate adherence to instructed precautions during ADL tasks. 2=Patient will verbalize/demonstrate understanding of assistive devices/modifications for ADL. 3=Patient will improve strength/tolerance for activity to enable patient to perform ADL's. OT Education/Plan Problem List/Assessment Assessment: Decreased Activ Tolerance, Impaired Self-Care Skills Discharge Recommendations Plan/Recommendations: Continue POC Treatment Plan/Plan of Care Treatment,Training & Education: Yes Patient would benefit from OT for education, treatment and training to promote independence in ADL's, mobility, safety and/or upper extremity function for AD L's. Plan of Care: ADL Retraining, Group Exercise/Act as Ind, UE Funct Exercise/Act, UE Neuromus Re-Ed/Coord Treatment Duration: Jan 24, 2023 Frequency: 3 times per week Estimated Hrs Per Day: .25 hour per day Agreement: Yes Rehab Potential: Good Time Start Time: 09:00 Stop Time: 09:17 DATE: Jan 19, 2023 Total Time Billed (hr/min): 17 Billed Treatment Time EVM 17 min DION ARTHUR OT Jan 19, 2023 09:08
[2023-01-19] MEDS: FINASTERIDE (PROSCAR) 5 MG TAB PO SCH (09:18)
[2023-01-19] MEDS: ASPIRIN E.C. 81 MG (ECOTRIN) TAB PO SCH (09:18)
[2023-01-19] MEDS: ENOXAPARIN 40 MG/0.4 ML (LOVENOX) SYR SC SCH (09:19)
[2023-01-19] MEDS: FLUTICASONE NASAL SPRAY (FLONASE) 16 GM BTL NS SCH (09:19)
[2023-01-19] MEDS: DOCUSATE SODIUM 100 MG (COLACE) CAP PO SCH (09:19)
[2023-01-19] MEDS: ARTIFICAL TEARS 0.4 ML UNIT DOSE (REFRESH PLUS) OD SCH ×2 (09:19→13:13)
[2023-01-19] MEDS: SENNOSIDES 8.6 MG (SENOKOT) TAB PO SCH (09:19)
--- NOTE | 2023-01-19 10:42 | Physical Therapy Evaluation ---
PT Evaluation-General Medical Diagnosis Admission Date Jan 17, 2023 at 17:33 Medical Diagnosis: facial nerve parly,obesity,TIA Onset Date: Jan 17, 2023 Therapy Diagnosis Therapy Diagnosis: debility/weakness Height/Weight Height (Feet): 5 Height (Inches): 7.00 Weight (Pounds): 325 Weight (Ounces): 6.0 Precautions Precautions/Isolations: Standard Precautions Referral Physician: Rafat Reason for Referral: Evaluation/Treatment Medical History Pertinent Medical History: HTN, OA Current History ER secondary to facial droop Reviewed History: Yes Social History Home: Single Level Current Living Status: Alone Entry Into Home: Stairs Without Railing PT Steps Into Home: 1 Prior Prior Level of Function SCALE: Activities may be completed with or without assistive devices. 2-Ehrjixpsky-yrzcsbo completes the activity by him/herself with no assistance from a helper. 5-Set-up or Clean-up Assistance-helper sets up or cleans up; patient completes activity. [place] assists only prior to or following the activity. 4-Supervision or Touching Assistance-helper provides verbal cues and/or touching/steadying and/or contact guard assistance as patient completes activity. Assistance may be provided throughout the activity or intermittently. 3-Partial/Moderate Assistance-helper does LESS THAN HALF the effort. [place] lifts, holds or supports trunk or limbs, but provides less than half the effort. 2-Substantial/Maximal Assistance-helper does MORE THAN HALF the effort. [place] lifts or holds trunk or limbs and provides more than half the effort. 2-Cjuatlreo-eatwsp does ALL the effort. Patient does none of the effort to complete the activity. Or, the assistance of 2 or more helpers is required for the patient to complete the activity. If activity was not attempted, code reason: 7-Patient Refused. 9-Not Applicable-not attempted and the patient did not perform the activity before the current illness, exacerbation or injury. 10-Not Attempted due to Environmental Limitations-(lack of equipment, weather restraints, etc.). 88-Not Attempted due to Medical Conditions or Safety Concerns. Bed Mobility: 6 Transfers (B,C,W/C): 6 Gait: 6 Indoor Mobility (Ambulation): Independent Prior Devices Use: Other-see list below Prior Device Use: cane PT Evaluation-Current Subjective Patient agrees to PT. Objective Patient Orientation: Normal For Age ROM/Strength ROM Lower Extremities bilateral LE WFL Strength Lower Extremities 4/5 grossly bilateral LE all planes Integumentary/Posture Bowel Incontinence: No Bladder Incontinence: No Posture WFL Neuromuscular (Tone, Coordination, Reflexes) grossly intact Sensory Vision: Functional Hearing: Functional Transfers Lying to Sitting/Side of Bed(Q: 6 Sit to Stand (QC): 4 Chair/Fyg-al-Wlmkc Xfer(QC): 4 Gait Mode of Locomotion: Walk Anticipated Mode of Locomotion: Walk Walk 10 feet (QC): 4 Walk 50 ft with 2 Turns(QC): 4 Walk 150 ft (QC): 4 Distance: 450' Gait Assistive Device: FWW Comments/Gait Description slow, steady, functional gait sequence Balance Sitting Static: Normal Sitting Dynamic: Normal Standing Static: Normal Standing Dynamic: Normal Assessment/Needs Patient will be seen short term by skilled PT to address functional mobility to ensure safe return to home at maximum LOF. Rehab Potential: Fair PT Piece Hand Goals Usp Goals PT Usp Goals Time Frame: Jan 31, 2023 Roll Left & Right (QC): 6 Sit to Lying (QC): 6 Lying-Sitting on Side/Bed(QC): 6 Sit to Stand (QC): 6 Chair/Wmt-ts-Fxxyn Xfer(QC): 6 Toilet Transfer (QC): 6 Walk 10 feet (QC): 6 Walk 50ft with 2 Turns (QC): 6 Walk 150 ft (QC): 6 PT Plan Treatment/Plan Treatment Plan: Continue Plan of Care Treatment Plan: Education, Functional Activity Corrine, Functional Strength, Gait, Safety, Therapeutic Exercise, Transfers Treatment Duration: Jan 31, 2023 Frequency: 6 times per week Estimated Hrs Per Day: .25 hour per day Time Time In: 900 Time Out: 915 DATE: Jan 19, 2023 Total Billed Treatment Time: 15 Total [facility] PT Jan 19, 2023 10:42
[2023-01-19 11:24] VITALS: BP 133/71
--- NOTE | 2023-01-19 12:35 | Diagnostic Imaging Report ---
PROCEDURE: MR imaging of the brain without contrast. TECHNIQUE: Multiplanar, multisequence MR imaging of the brain was performed without contrast. INDICATION: Right facial weakness. COMPARISON: CTA head and neck 01/17/2023. FINDINGS: Mild generalized parenchymal volume loss. Mild nonspecific T2 hyperintensities in the supratentorial white matter compatible with chronic small vessel ischemic change. No restricted water diffusion. No hemosiderin deposition or evidence of intracranial hemorrhage. Normal morphology including the major midline structures, sella, posterior fossa and cerebellar pontine angle. Normal intracranial flow voids. No hydrocephalus or extra-axial fluid collections. The orbits are negative. Paranasal sinuses and mastoids are clear. Normal bone marrow signal. IMPRESSION: Age-appropriate MRI of the brain without contrast. No acute findings. No evidence of acute infarction or hemorrhage. Dictated by: Dictated on workstation # [id number]
[2023-01-19] MEDS ORDERED: PRD20T PO (13:29)
[2023-01-19] MEDS ORDERED: CARB1DRO OD (13:29)
[2023-01-19] MEDS ORDERED: Artificial Tears OD (13:29)
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
--- NOTE | 2023-01-19 14:07 | D/C HH Face to Face Order ---
D/C Face to Face Orders Instructions for Patient [facility], Patient Instructions/FollowUp: Please continue to take your medications as written. Please follow up with your primary care doctor to follow up this hospital stay. Physician to follow Patient: Dr Gonzalez Discharge Diet for Home: Regular Diet Patient Data-Allergies,Ht & Wt Patient Allergies: Coded Allergies: ampicillin (Unverified Allergy, Intermediate, HIVES, pt has received Cefepime & Rocephin in the past, 03/05/21) Height (Feet): 5 Height (Inches): 7.00 Weight (Pounds): 325 Weight (Ounces): 6.0 Home Health Need/Face to Face Date of Face to Face: Jan 19, 2023 Clinical Findings: Generalized weakness and fatigue, Unsteady gait I have seen Pt vhup-sy-jgxc: Yes Discharged To: Home Diagnosis/Conditions: Carty's Palsy, Weakness Patient is Homebound due to: Jessica fall risk due to instabilty, Muscle weakness Homebound Status Due to the above stated illness, injury or surgical procedure (medical condition or diagnosis) and associated clinical findings, the patient is homebound because of his/her inability to leave home except with aid of a supportive device and/or person AND leaving the home requires a considerable and taxing effort or is medically contraindicated. Pt req the following assistanc: Aid of another person, Walker Home Health Nursing Orders Home Health Services Order: Nursing Services, Hitting Coach-Evaluate & Treat, Physical Therapy-Evaluate & Treat Home Health Infusion Therapy Line Start Date: Jan 17, 2023 Therapy Orders Therapy Orders: OT (must have SN or PT order), Physical Therapy Therapy Specific Orders: Eval assistive deivces, Teach enviro modifications/safety, Gait training, Increase strength/endurance Certify Stmt I certify that this patient is under my care and that I, a nurse practitioner or a physician; a molding line assistant working with me, had a face to face encounter that - meets the physician face to face encounter requirements with this patient as dated. AMELIA MICHEL MD Jan 19, 2023 14:07
== END 2023-01-19 14:08 | disposition home health service (06) ==
LOC: EDUNIT# 13:52 → ER 13:54 → 4TH 17:33 → UNDOADMOB 17:33 → 4TH 17:38 → UNDODISOB 01-19 14:08
PROVIDERS: ADMIT Internal Medicine; ATTEND Family Medicine
DX: G51.0 Bell's palsy (principal); N18.9 Chronic kidney disease, unspecified; N40.0 Benign prostatic hyperplasia without lower urinary tract symptoms; G45.9 Transient cerebral ischemic attack, unspecified; E66.01 Morbid (severe) obesity due to excess calories; R53.81 Other malaise; G47.33 Obstructive sleep apnea (adult) (pediatric); Z68.42 Body mass index [BMI] 45.0-49.9, adult
CPT/HCPCS: 70450; 70496; 70498; 70551; 71045; 80048 ×2; 80053; 80061; 81000; 82947; 83036; 84484; 85007; 85025 ×2; 85027; 85610; 85730; 86618; 86666 ×2; 86668; 86757 ×2; 87077; 87088; 87186; 93005; 93041; 96372 ×3; 97162; 97166; 99284; G0378; 36415